=== PATIENT | female | born 1970 | race Caucasian/White ===

== ENCOUNTER 2016-05-31 13:44 | Emergency (ER) | payer MEDICAID ==
[~2016-05-31] VITALS: Ht 167.6 cm; Wt 162.4 kg
[2016-05-31 13:47] VITALS: BP 139/77; PULSE 97; RESP 20; TEMP 97.8; O2SAT 97
--- NOTE | 2016-05-31 13:52 | NUR ---
No ER beds available at this time. EKG performed in triage. Dr. Malloy made aware of pt.'s presenting complaint. Pt placed to ER waiting room in stable condition.
--- NOTE | 2016-05-31 15:13 | NUR ---
Patient in stable condition, alert and oriented x4, son present. Patient states began feeling short of breath with chest pain around 1130 am while at rest. States used nebulizer 3x. No chest pressure or radiating pain per patient. Denies nausea/vomtiing. Left arm rash present with scabbing, clean dry intact. Patient unsure when rash began. No other complaints/injuries per patient or noted.
--- NOTE | 2016-05-31 15:30 | NUR ---
Dr Malloy at bedside
--- NOTE | 2016-05-31 16:19 | NUR ---
Patient in stable condition, breathing unlabored, no shortness of breath or chest pain per patient
[2016-05-31 16:38] LABS: BLOOD GAS PH 7.536 (7.350-7.450)
[2016-05-31 16:39] LABS: BLOOD GAS BASE EXCESS 3.3 mmol/L (-3.0-3.0); BLOOD GAS COHb% 3.4 % (0.5-1.5); BLOOD GAS HHB 2.1 % (0.0-6.0); BLOOD O2Hb% 94.3 % (94.0-97.0)
[2016-05-31] MEDS ORDERED: OXYCODONE/ACETAMINOPHEN *10*mg/325 mg TABLET PO ONE (16:45)
[2016-05-31] MEDS ORDERED: ALBUTEROL SULFATE 0.083% 2.5 MG/3 ML VIAL.NEB INH ONE (16:45)
--- NOTE | 2016-05-31 17:41 | NUR ---
Patient waiting for ride, stable conditon, no distress noted.
[2016-05-31] MEDS ORDERED: ONDANSETRON 4 MG ODT TAB PO ONE (18:00)
--- NOTE | 2016-05-31 18:05 | NUR ---
Patient states is nauseated. Dr. Malloy notified, will order medication.
--- NOTE | 2016-05-31 18:35 | NUR ---
Patient states that medication helped and no longer feels nauseated. Stable condition.
[2016-05-31 18:40] VITALS: BP 127/78; PULSE 88; RESP 18; TEMP 97.1; O2SAT 98
--- NOTE | 2016-05-31 18:40 | NUR ---
Patient given written and verbal discharge instructions and verbalizes understanding. ER MD discussed with patient the results and treatment provided. Patient in stable condition. ID arm band removed. Rx of augmentin and albuterol given. Patient educated on pain management and to follow up with PMD in 2 days. Opportunity for questions provided and answered.
--- NOTE | 2016-05-31 19:00 | NUR ---
Patient left discharge instructions in ER. Called patient's home phone, patient's mother answered, stated will inform daughter when she returns and they will come pick it up. Will endorse to night charge nurse.
== END 2016-05-31 18:40 | disposition home or self-care (01) ==
LOC: SED 13:44
DX: J40 Bronchitis, not specified as acute or chronic (principal); J45.909 Unspecified asthma, uncomplicated; E11.9 Type 2 diabetes mellitus without complications; I10 Essential (primary) hypertension; I50.9 Heart failure, unspecified; C53.9 Malignant neoplasm of cervix uteri, unspecified; Z88.6 Allergy status to analgesic agent; Z88.5 Allergy status to narcotic agent; Z88.8 Allergy status to other drugs, medicaments and biological substances
CPT/HCPCS: 36600; 71010; 81025; 82803; 82962; 93005; 94640; 99285; Q0162

== ENCOUNTER 2016-08-06 15:08 | Inpatient (IN) | payer MEDICAID ==
[~2016-08-06] VITALS: Ht 167.6 cm; Wt 163.7 kg
[2016-08-06 15:20] VITALS: BP 117/71; PULSE 100; RESP 18; TEMP 98.3; O2SAT 96
--- NOTE | 2016-08-06 15:39 | NUR ---
Patient to ER bed 07 to gown for evaluation. Side rails up.
--- NOTE | 2016-08-06 15:48 | NUR ---
PT PRESENTS TO ED C/O/ BLE SWELLING AND REDNESS SINCE YESTERDAY PER PT REPORT. PRIOR ED VISIT REPORTS PT HAS STATED S/S X 2 YRS IN 2016.NO ACUTE DISTRESS NOTED. LEGS ARE SWOLLEN NO WEEPING NOTED.SKIN IS DRY AND FLAKY W/ POOR HYGIENE.
--- NOTE | 2016-08-06 15:48 | NUR ---
ER at bedside examining patient.
--- NOTE | 2016-08-06 16:15 | NUR ---
US AT BEDSIDE
[2016-08-06] MEDS ORDERED: ENOXAPARIN SODIUM 100 MG/ML SYRINGE SUBCUT ONE (16:45)
[2016-08-06] MEDS ORDERED: ENOXAPARIN SODIUM 60 MG/0.6 ML SYRINGE SUBCUT ONE (16:45)
--- NOTE | 2016-08-06 16:45 | NUR ---
PT (+) BILATERAL DVT
--- NOTE | 2016-08-06 17:00 | NUR ---
PT MEDICATED FOR DVT.PT TOLERATED WELL.
--- NOTE | 2016-08-06 17:35 | NUR ---
PT TOLERATED PAIN MED WELL.
[2016-08-06 17:45] LABS: CALCIUM 8.4 mg/dL (8.4-11.0); CREATININE 0.83 mg/dL (0.55-1.30); POTASSIUM 4.4 mmol/L (3.5-5.1)
[2016-08-06] MEDS ORDERED: MORPHINE SULFATE 10 MG/ML VIAL IM ONE (17:45)
[2016-08-06] MEDS ORDERED: ONDANSETRON HCL 4 MG/2 ML VIAL IVP ONE (17:45)
[2016-08-06 17:50] LABS: ALBUMIN 2.5 g/dL (3.4-4.8); TOTAL BILIRUBIN 0.3 mg/dL (0.0-1.0); TOTAL PROTEIN, SERUM 6.4 g/dL (6.4-8.3)
--- NOTE | 2016-08-06 17:50 | NUR ---
Patient will be admitted to care of . Admitted to TELEMETRY unit. Will go to room 117A. Summary report printed. Report will be given at bedside.
[2016-08-06 17:56] LABS: BASOPHILS % (AUTO) 0.4 % (0.0-2.0); EOSINOPHILS # (AUTO) 0.2 K/uL (0.0-0.4); EOSINOPHILS % (AUTO) 3.5 % (0.0-4.0); HEMATOCRIT 27.7 % (36-48); HEMOGLOBIN 8.6 g/dL (12.0-16.0); LYMPHOCYTES # (AUTO) 1.5 K/uL (1.0-5.5); LYMPHOCYTES % (AUTO) 26.5 % (20.5-51.5); MEAN CORPUSCULAR HEMOGLOBIN 22 pg (27-31); MEAN CORPUSCULAR HGB CONC 31 % (32-36); MEAN CORPUSCULAR VOLUME 71 fL (79.0-98.0); MONOCYTES # (AUTO) 0.3 K/uL (0.0-1.0); MONOCYTES % (AUTO) 4.9 % (1.7-9.3); NEUTROPHILS # (AUTO) 3.7 K/uL (1.8-7.7); NEUTROPHILS % (AUTO) 64.7 % (40.0-70.0); PLATELET COUNT (AUTO) 309 K/uL (130-430); RED BLOOD CELL COUNT(AUTO) 3.88 MIL/uL (4.2-6.2); RED CELL DISTRIBUTION WIDTH 18.6 % (9.0-15.0); WHITE BLOOD COUNT (AUTO) 5.7 K/uL (4.8-10.8)
--- NOTE | 2016-08-06 17:58 | NUR ---
admission notes: received patient in room 117A from er via gurney.report given by remigio er nurse. patient admitted with diagnoses of bilateral lower extremity dvt. pt oriented to hospital routine,call light,toileting and safety.Pt verbalized understanding.placed on night monitor. report given to jose rafael primary nurse.
[2016-08-06 18:04] LABS: INR 0.9 (0.8-1.2); PROTHROMBIN TIME 10.3 SECS (9.5-12.5)
[2016-08-06 18:11] VITALS: BP 109/61; PULSE 87; RESP 20; TEMP 98.6; O2SAT 97
--- NOTE | 2016-08-06 18:51 | NUR ---
Closing Note: Pt sitting semi-fowlers in bed. No acute signs of distress noted at this time. IV intact to LUE with no redness or swelling noted to site. No other needs noted at this time. Swelling and redness to BLE noted. Pt verbalizes understanding of need to call for assist prior to ambulating. Call light in reach. Bed alarm on. Pt is able to make needs known. Endorse plan of care to NOC RN.
--- NOTE | 2016-08-06 19:06 | NUR ---
Dr. Samayoa Paged: Dr. Samayoa paged, he is aware that patient does not have pain medication, blood sugar checks, or DVT prophylaxis ordered. He is aware that patient is diabetic and that patient does not know her home medications at this time. Dr. Samayoa states "Ok, I will put the orders in".
[2016-08-06] MEDS ORDERED: *LOVENOX 1MG/KG Q12H/PHARMACY XX ONE (19:15)
[2016-08-06] MEDS ORDERED: COMMUNICATION ORDER XX ONE (19:15)
[2016-08-06] MEDS ORDERED: DEXTROSE 50% JECT 50 ML DISP.SYRIN IVP PRN (19:15)
[2016-08-06] MEDS ORDERED: ACETAMINOPHEN 325 MG TABLET PO PRN (19:15)
--- NOTE | 2016-08-06 19:15 | NUR ---
OPENING NOTES: change of shift, pt. was just admitted. awake, alert and oriented. noted both lower extremities swollen and red , pt. said it feels numb. saline lock on left antecubital. on room air. call light within reach.
[2016-08-06 19:22] VITALS: BP 130/55; PULSE 90; RESP 20; TEMP 98.3; O2SAT 100
[2016-08-06 19:29] LABS: BLOOD GAS BASE EXCESS 8.6 mmol/L (-3.0-3.0); BLOOD GAS PH 7.454 (7.350-7.450)
[2016-08-06 19:30] LABS: ABG TOTAL HEMOGLOBIN 9.8 G/dL (12.0-18.0); BLOOD GAS HHB 7.1 % (0.0-6.0); BLOOD O2Hb% 88.3 % (94.0-97.0)
[2016-08-06 19:48] LABS: IRON (SERUM) 31 mcg/dL (37-145); TOTAL IRON BIND. CAPACITY 222 ug/dL (250-450)
[2016-08-06] MEDS ORDERED: LIRA0.6P SQ (20:01)
[2016-08-06] MEDS ORDERED: INSU200I4 SQ (20:01)
[2016-08-06] MEDS: INSULIN REGULAR, HUMAN 100 UNITS/ML, 10 ML VIAL (novoLIN R) SUBCUT PRN (20:11)
[2016-08-06] MEDS: HYDROmorphone 2 MG/ML VIAL IVP PRN (21:08)
--- NOTE | 2016-08-06 21:14 | NUR ---
NOTES: pt. came in with dressing on lower back and just had back surgery about 2 weeks ago. c/o bilateral lower extremities pain describe as burning and tingling. dressing changed by nurse Oswaldo and took picture.pt. repositioned self on her side.
--- NOTE | 2016-08-06 22:04 | NUR ---
Consultation Paged Reason for consultation: DVT Was consult called: Yes Person who was notified: Blanquita Consulting Physician: Jamel Nava Drug Room Clerk Specialty: Hematology Drug Room Clerk Ordered By: Sharlene Roche
--- NOTE | 2016-08-06 22:14 | NUR ---
PAGED DR CARR SPOKE WITH , PHONE NUMBER [phone]
--- NOTE | 2016-08-06 22:18 | NUR ---
NOTES: called Dr. Reed and retun the call and informed him about the ABG result. pt. in no acute distress, no complain of breathing problem. no new order noted.
[2016-08-07 00:10] VITALS: BP 100/52; PULSE 93; RESP 18; TEMP 97.8; O2SAT 98
[2016-08-07] MEDS: INSULIN REGULAR, HUMAN 100 UNITS/ML, 10 ML VIAL (novoLIN R) SUBCUT PRN ×5 (00:26→23:51)
[2016-08-07] MEDS ORDERED: MORP100C17 PO (00:34)
[2016-08-07] MEDS ORDERED: SUCR1TAB78 PO (00:34)
[2016-08-07] MEDS ORDERED: VITA-285 PO (00:34)
[2016-08-07] MEDS ORDERED: ASCO-339 PO (00:34)
[2016-08-07] MEDS ORDERED: ALBMDI INH (00:34)
[2016-08-07] MEDS ORDERED: TOPI50TA20 PO (00:34)
[2016-08-07] MEDS ORDERED: FURO80TA3 PO (00:34)
[2016-08-07] MEDS ORDERED: HYDR4TAB57 PO (00:34)
[2016-08-07] MEDS ORDERED: FERR-57 PO (00:34)
[2016-08-07] MEDS ORDERED: TRAZ300T2 PO (00:34)
[2016-08-07] MEDS ORDERED: CALC-1094 PO (00:34)
[2016-08-07] MEDS ORDERED: GABA-333 PO (00:34)
[2016-08-07] MEDS ORDERED: AMIT100T2 PO (00:34)
[2016-08-07] MEDS ORDERED: QUET50TA14 PO (00:34)
[2016-08-07] MEDS ORDERED: FLUT12AE3 IH (00:34)
[2016-08-07] MEDS ORDERED: FOLI-59 PO (00:34)
[2016-08-07] MEDS ORDERED: DULO60CA41 PO (00:34)
[2016-08-07] MEDS ORDERED: LORA1TAB PO (00:34)
[2016-08-07] MEDS: HYDROmorphone 2 MG/ML VIAL IVP PRN ×6 (01:38→22:06)
--- NOTE | 2016-08-07 02:10 | NUR ---
NOTES: pt. tried to get out of bed, bed alarm, checked pt. , could not find call light, needs to go potty, helped to get to bedside commode. needs attended. back dressing saturated, leaking , reinforced with ABD pads.
--- NOTE | 2016-08-07 04:30 | NUR ---
NOTES: made rounds, pt. sleeping soundly. cardiac pattern unchanged.
--- NOTE | 2016-08-07 06:00 | NUR ---
CLOSING NOTES: pt. medicated for c/o bilateral leg pain , pt. crying. VS checked and blood sugar and sliding scale coverage given. changed dressing on lower back incision, still leaking with small spot of opening noted. appears red on the site.
[2016-08-07 06:05] VITALS: BP 126/70; PULSE 88; RESP 18; TEMP 99.2; O2SAT 97
--- NOTE | 2016-08-07 06:15 | NUR ---
NOTES: noted skin on left buttock red and some tenderness, picture taken, will order wound consult, cleansed area and covered with foam dressing. pt. feeling little better. repositioned self for comfort.call light within reach.
[2016-08-07] MEDS: ALBUTEROL SULFATE 0.083% 2.5 MG/3 ML VIAL.NEB INH SCH ×5 (07:00→22:48)
[2016-08-07] MEDS ORDERED: IPRATROPIUM BROM 0.5 MG/2.5 ML VIAL.NEB (ATROVENT) INH PRN (07:00)
[2016-08-07] MEDS ORDERED: ALBUTEROL SULFATE 0.083% 2.5 MG/3 ML VIAL.NEB INH PRN (07:00)
[2016-08-07] MEDS: IPRATROPIUM BROM 0.5 MG/2.5 ML VIAL.NEB (ATROVENT) INH SCH ×5 (07:00→22:48)
--- NOTE | 2016-08-07 07:35 | NUR ---
NOTES: endorsed pt. to incoming shift with nurse Amador. noted relief of pain.
--- NOTE | 2016-08-07 08:00 | NUR ---
Initial Notes Patient A/O x4. Respirations even and unlabored on room air. IV access patent. Bilateral lower extremities warm to touch, red. Use of call light reviewed with patient. Fall and safety precautions in place. Bed lowest and locked position.
[2016-08-07] MEDS: ENOXAPARIN SODIUM 60 MG/0.6 ML SYRINGE SUBCUT SCH ×2 (08:40→21:31)
[2016-08-07] MEDS: ENOXAPARIN SODIUM 100 MG/ML SYRINGE SUBCUT SCH ×2 (08:41→21:30)
[2016-08-07] MEDS: ONDANSETRON HCL 4 MG/2 ML VIAL IVP PRN ×2 (09:57→22:03)
[2016-08-07] MEDS ORDERED: FUROSEMIDE 20 MG/2 ML VIAL IVP ONE (10:15)
--- NOTE | 2016-08-07 10:25 | NUR ---
consultation called reason for consult: CHF person who was notified: SANTHOSH consulting drMagaly: LATISHA BROWN
--- NOTE | 2016-08-07 11:00 | NUR ---
Notes Patient ambulated to restroom unassisted. Gait steady. Educated patient on importance to minimize activity due to DVT. Patient provided teach-back and stated she is aware of need to minimize ambulation.
[2016-08-07 11:49] VITALS: BP 126/70; PULSE 88
[2016-08-07 12:46] VITALS: BP 128/49; PULSE 87; RESP 18; TEMP 98.3; O2SAT 98
[2016-08-07 16:18] VITALS: BP 124/55; PULSE 89; RESP 16; TEMP 97; O2SAT 94
--- NOTE | 2016-08-07 16:30 | NUR ---
Notes Informed Dr. Roach of elevated D-dimer. No new orders given.
--- NOTE | 2016-08-07 16:56 | NUR ---
Notes Family at bedside. No acute distress noted.
--- NOTE | 2016-08-07 17:50 | NUR ---
Notes Dressing to lower back changed using aseptic technique. Small to moderate drainage noted to gauze. No foul odor noted.
--- NOTE | 2016-08-07 18:49 | NUR ---
Closing Notes Patient needs met throughout shift. Pain addressed per MD orders. Patient minimized activity. No complaints of difficulty breathing or shortness of breath exhibited. Will continue to monitor until patient care is endorsed to oncoming shift nurse.
--- NOTE | 2016-08-07 19:15 | NUR ---
change of shift.pt.initial assessment.pt.present stable status.pt.presents dsg:lower back.lower extremity cellulitis:bilateral. pt.states she assumes the rt.leg is becoming more edematous.2 f/u.iv fluids access:located lt.antecubital.call ligth placed w/in pt's rech.pt.amblatory:bsc provided 2 accomadate frequent use 4 mictrition.
[2016-08-07 20:00] VITALS: BP 124/64; PULSE 88; RESP 16; TEMP 97.3; O2SAT 96
--- NOTE | 2016-08-07 20:00 | NUR ---
pt.assessed.v/s assessed.values w/ normal limits.pt.request dsg 2 b changed:located lower back.i have changed the dsg. surrgical site presents non healing wound excoriated skin.2 f/u w/.
--- NOTE | 2016-08-07 21:00 | NUR ---
2100p medications administered.lovenox;160mg sq.i have inquired if the pt.understood the necessity 4 the lovenox:pt.stated she did.understanding satisfactory.
--- NOTE | 2016-08-07 22:51 | NUR ---
paged paged for Dr Samayoa, dialed . s/w Tamela.
[2016-08-08] VITALS (7 sets, daily range): BP systolic 94–131; BP diastolic 45–71; PULSE 83–105; RESP 16–18; TEMP 97–98.6; O2SAT 91–100; Ht 167.6 cm; Wt 163.7 kg
--- NOTE | 2016-08-08 | NUR ---
pt.assessed.v/s assessed.values w/in normal limits.i have emptied the bsc.pt.requested cup of coffee.i have provided the coffee.blood glucose assessed.286mg/dl:i have administered 6-units regular insulin.call light w/in pt's reach.
--- NOTE | 2016-08-08 02:00 | NUR ---
pt.assessed.pt.requested pain medication.i have administered dilaudid:2mg ivp.no other request@this hour. call light w/in pt's reach.
[2016-08-08] MEDS: HYDROmorphone 2 MG/ML VIAL IVP PRN ×4 (02:05→20:11)
[2016-08-08] MEDS: IPRATROPIUM BROM 0.5 MG/2.5 ML VIAL.NEB (ATROVENT) INH SCH ×5 (03:05→19:40)
[2016-08-08] MEDS: ALBUTEROL SULFATE 0.083% 2.5 MG/3 ML VIAL.NEB INH SCH ×5 (03:05→19:40)
--- NOTE | 2016-08-08 04:00 | NUR ---
pt.assessed.v/s assessed.i have emptied the bsc.no request@this hour.call light w/in pt's reach.
--- NOTE | 2016-08-08 05:30 | NUR ---
pt.requested medication 4 nausea.i have administered zofran:4mg ivp.no other request@this hour.i have emptied the bsc. call light placed w/i pt's reach.
[2016-08-08] MEDS: ONDANSETRON HCL 4 MG/2 ML VIAL IVP PRN ×2 (05:37→20:11)
--- NOTE | 2016-08-08 06:30 | NUR ---
pt.assessed.pt.requesterd pain medication:i have administered dilaudid:2mg ivp.i have applied new allergy band,i have changed the dsg:coccyx/sacrum,lt.buttocks,i have administerd insulin:2units;regular:blood glucose:150mg /dl.call light placed w/in pt's reach.
[2016-08-08] MEDS: INSULIN REGULAR, HUMAN 100 UNITS/ML, 10 ML VIAL (novoLIN R) SUBCUT PRN ×2 (06:51→11:53)
[2016-08-08 07:04] LABS: BASOPHILS % (AUTO) 0.6 % (0.0-2.0); EOSINOPHILS # (AUTO) 0.1 K/uL (0.0-0.4); EOSINOPHILS % (AUTO) 2.5 % (0.0-4.0); HEMATOCRIT 30.1 % (36-48); HEMOGLOBIN 9.6 g/dL (12.0-16.0); LYMPHOCYTES # (AUTO) 1.7 K/uL (1.0-5.5); LYMPHOCYTES % (AUTO) 29.1 % (20.5-51.5); MEAN CORPUSCULAR HEMOGLOBIN 23 pg (27-31); MEAN CORPUSCULAR HGB CONC 32 % (32-36); MEAN CORPUSCULAR VOLUME 72 fL (79.0-98.0); MONOCYTES # (AUTO) 0.2 K/uL (0.0-1.0); MONOCYTES % (AUTO) 4.3 % (1.7-9.3); NEUTROPHILS # (AUTO) 3.7 K/uL (1.8-7.7); NEUTROPHILS % (AUTO) 63.5 % (40.0-70.0); PLATELET COUNT (AUTO) 306 K/uL (130-430); RED CELL DISTRIBUTION WIDTH 18.7 % (9.0-15.0); WHITE BLOOD COUNT (AUTO) 5.7 K/uL (4.8-10.8)
[2016-08-08 07:10] LABS: CALCIUM 8.9 mg/dL (8.4-11.0); CREATININE 0.69 mg/dL (0.55-1.30); TOTAL BILIRUBIN 0.2 mg/dL (0.0-1.0); TOTAL PROTEIN, SERUM 6.9 g/dL (6.4-8.3)
[2016-08-08 07:11] LABS: ALBUMIN 2.8 g/dL (3.4-4.8); THYROID STIMULATING HORMONE 7.57 uIu/mL (0.34-4.82)
--- NOTE | 2016-08-08 08:03 | NUR ---
Initial Notes Patient A/O x4. Respirations even and unlabored on room air. IV access patent. Bilateral lower extremities warm to touch, red. Use of call light reviewed with patient. Patient able to sit up at side of bed with minimal assistance. Fall and safety precautions in place. Bed lowest and locked position.
[2016-08-08] MEDS ORDERED: POTASSIUM CHLORIDE 20 MEQ/PKT PACKET PO ONE (08:45)
--- NOTE | 2016-08-08 09:09 | NUR ---
Nutrition Update Patricio Scale 18 noted. Pt admitted for DVT. Diet: 2 gm Na BMI: 57.8 kg/m2 RD to follow per nutrition care standards
[2016-08-08] MEDS: ENOXAPARIN SODIUM 60 MG/0.6 ML SYRINGE SUBCUT SCH ×2 (09:42→20:12)
[2016-08-08] MEDS: ENOXAPARIN SODIUM 100 MG/ML SYRINGE SUBCUT SCH ×2 (09:42→20:11)
[2016-08-08] MEDS ORDERED: HYDROmorphone 1 MG INJ. 1 MG/ML AMPUL IVP PRN ×2 (10:00)
[2016-08-08] MEDS ORDERED: ACETAMINOPHEN 325 MG TABLET PO PRN (10:00)
[2016-08-08] MEDS: HYDROmorphone 1 MG INJ. 1 MG/ML AMPUL IVP PRN ×2 (10:03→15:57)
--- NOTE | 2016-08-08 10:30 | NUR ---
WOUND EVALUATION: Late note for 1030 secondary to patient care. Wound Consult received from Dr. Samayoa. Thank you, Dr. Samayoa, for the consult. Patient received in a Rafal Bed with an Atmos-Air 9000 mattress, awake, alert, and oriented. Patient is able to turn in bed independently. Patricio Score is an 18. Past Medical History: Asthma, Diabetes Mellitus, CHF, history of Pericarditis, back surgery, and six Angiograms. Recent Labs: WBC 5.7, RBC 4.20, Hgb 9.6, Hct 30.1, K 3.0, BUN 7, Creat 0.69, Gluc 172, Alb 2.8, D-Dimer 3060. Intrinsic factors that delay wound healing: Asthma, Diabetes Mellitus, CHF. Extrinsic factors that delay wound healing: Decreased mobility. Microbiology: MRSA Screen negative. Blood Culture x 2 in progress. Upon arrival to [facility], the patient was found to have bilateral lower extremity DVT's. Patient received Dilaudid IV push pain medication around two hours before assessment. Wound Assessment: 1) Lower Thoracic Area: Recent surgical site with scar tissue with a small hole, present on admission. Hole measures 0.4 cm x 0.4 cm x 4.0 cm. 100% undermining present, with tunnel at 7 0'clock, measuring 1.7 cm. No visible colors of tissue within hole. Small yellow purulent drainage present. Sacral area has bands of redness. May be connecting to wound 2) below. Recommend: Cleanse wound with normal saline. Place moisture barrier cream onto evan-wound. Pack wound with 1/4 inch Iodoform. Cover with non-adhesive foam dressing, then transparent dressing. Perform wound care daily, and as needed for dressing soiling or dislodgement. 2) Left Buttock: A small reddened, round area, blanchable. No odor, no drainage, possible abscess site. Skin is broken, but not open. Measures 1.0 cm x 0.6 cm. Recommend: Cleanse site with normal saline. Pat dry. Place moisture barrier cream onto site. Cover with foam dressing. Perform wound care daily, and as needed for dressing soiling or dislodgement. Also recommend: Encourage and assist patient as needed with repositioning every 2 hours with pillow support and off-load pressure areas with pillows for pressure re-distribution. Perform skin care and monitor skin integrity Q shift. Use moisture barrier cream on buttocks and other moisture susceptible areas QID and as needed for soiling. Addendum: 08/08/16 at 2036 by Jozef Zarate RN Error, patient assessed at 0930.
--- NOTE | 2016-08-08 10:30 | NUR ---
Wound Care Planning: Spoke with Dr. Samayoa in house and explained to him that patient has a lot of pain, and recommended pain medication for wound care. Danita Clinton entered pain medication for mild, moderate, and severe pain. Also recommended a surgical consult for the wound.
--- NOTE | 2016-08-08 10:55 | NUR ---
Notes Patient calm at this time. Pain medication has relieved discomfort from lower back after wound evaluation.
--- NOTE | 2016-08-08 14:45 | NUR ---
Notes Complaint of pain addressed per MD orders.
--- NOTE | 2016-08-08 15:30 | NUR ---
Notes Wound care completed per wound care guidelines. Patient tolerated well, but is complaining of discomfort. Pain will be addressed per MD orders. Wound occasional caregiver was informed and he spoke with patient to reinforce education in regards to importance of proper wound care in order to promote healing.
--- NOTE | 2016-08-08 15:35 | NUR ---
Wound Treatment Orders: Spoke with patient regarding pain. She was crying non-stop, and said that I could talk to her, but that she wanted the packing out. She said that the wound packing was "burning" inside. Explained to patient that packing the wound would decrease wound fluid buildup and help the wound to heal (and that no packing would consequently allow more fluid to collect within the wound and increase wound cavity size). The patient demanded to have the wound packing taken out. If patient does not allow packing of the wound: Apply moisture barrier cream to evan-wound, apply calcium alginate, then foam dressing to wound site daily, and as needed for dressing soiling or dislodgment.
--- NOTE | 2016-08-08 17:05 | NUR ---
Notes Patient crying leaning over bedside table, squeezing pillow, playing candy crush game on her phone. Pain has been addressed. Patient refuses heat pad for comfort. Does not state what relieves discomfort when asked. Dr. Samayoa has been paged to inform and obtain orders.
[2016-08-08] MEDS: LORazepam 1 MG TABLET PO PRN (18:02)
--- NOTE | 2016-08-08 18:27 | NUR ---
CONSULTATION PAGED REASON FOR CONSULTATION:UNCOLSABLE CRYINY WAS CONSULT CALLED?Y PERSON WHO WAS NOTIFIED:BLADE CONSULTING PHYSICIAN:DR.JACOBSAID ASSEMBLING MACHINE OPERATOR SPECIALTY:PSYCH ASSEMBLING MACHINE OPERATOR PHONE NUMBER:[phone]
--- NOTE | 2016-08-08 19:02 | NUR ---
Closing Notes Patient needs met throughout shift. Pain addressed per MD orders. Patient minimized activity. No complaints of difficulty breathing or shortness of breath exhibited. Patient less restless at this time but stated she will not eat. Will continue to monitor until patient care is endorsed to oncoming shift nurse.
--- NOTE | 2016-08-08 20:05 | NUR ---
Initial Notes Patient alert and oriented, able to make needs known. Patient c/o pain to coccyx area, stated pain coming from wound that was measured and dressed today by nurse and wound care nurse, will medicate with IV pain medicine. Patient instructed to position self on either sides while laying down, to offload on back area. Patient verbalized understanding. No SOB noted, on room air. Denies nausea/vomiting at this time. IV site patent, flushes well. Goal of pain management and safety this shift. Call light within reach. Will continue to monitor.
--- NOTE | 2016-08-08 22:16 | NUR ---
Notes Patient resting in bed, playing on her phone. States pain level has gone down. No SOB noted. IV site patent, flushes well. Dressing to lower back area, CDI. Son at bedside. Call light within reach. Will continue to monitor.
[2016-08-09] MEDS: LORazepam 1 MG TABLET PO PRN (00:11)
[2016-08-09] MEDS: HYDROmorphone 2 MG/ML VIAL IVP PRN ×6 (00:11→21:06)
[2016-08-09] MEDS: ALBUTEROL SULFATE 0.083% 2.5 MG/3 ML VIAL.NEB INH SCH ×7 (00:17→23:45)
[2016-08-09] MEDS: IPRATROPIUM BROM 0.5 MG/2.5 ML VIAL.NEB (ATROVENT) INH SCH ×7 (00:17→23:45)
--- NOTE | 2016-08-09 00:30 | NUR ---
Notes Checked patients blood sugar, covered with insulin per sliding scale. Reinforced dressing to lower back area. Medicated with pain medicine, per pt request. No SOB noted. Afebrile. IV site patent, flushes well. Call light within reach. Will continue to monitor.
[2016-08-09] MEDS: INSULIN REGULAR, HUMAN 100 UNITS/ML, 10 ML VIAL (novoLIN R) SUBCUT PRN ×4 (00:42→17:25)
--- NOTE | 2016-08-09 02:20 | NUR ---
Notes Patient denies pain at this time. No SOB noted. IV site patent, flushes well. Afebrile. Call light within reach. Will continue to monitor.
--- NOTE | 2016-08-09 04:18 | NUR ---
Notes Patient recently medicated with pain medicine. No SOB noted. Dressing to back area CDI. Afebrile. IV site patent, flushes well. Call light within reach. Will continue to monitor.
--- NOTE | 2016-08-09 04:37 | NUR ---
CONSULT: DIETARY CONSULT I CALLED LEFT A [email or web address] ANSWERING MACHINE EXT. [phone]
[2016-08-09 05:26] VITALS: BP 106/50; PULSE 92; RESP 18; TEMP 97.2; O2SAT 97
--- NOTE | 2016-08-09 06:42 | NUR ---
Closing Notes Cleanse wound with normal saline. Place moisture barrier cream onto evan-wound. Pack wound with 1/4 inch Iodoform. Cover with non-adhesive foam dressing, then transparent dressing. Patient tolerated dressing change well, c/o pain, but tolerable. No SOB noted. IV site patent, flushes well. Patient repositioned in bed. Goals met. Call light within reach. Will continue to monitor.
[2016-08-09 07:46] VITALS: BP_SYST 116; BP_SYST 118; BP_DIAS 45; BP_DIAS 62; PULSE 86; RESP 15; TEMP 97.6; O2SAT 96
--- NOTE | 2016-08-09 08:16 | NUR ---
initial notes: pt awake, alert and oriented. i.v. access patent. discussed plan of care. call light within reach. report received at bedside.
--- NOTE | 2016-08-09 08:29 | NUR ---
Royce rounds: seen by Dr. Gilbert.
[2016-08-09] MEDS: ENOXAPARIN SODIUM 60 MG/0.6 ML SYRINGE SUBCUT SCH ×2 (08:36→21:07)
[2016-08-09] MEDS: ENOXAPARIN SODIUM 100 MG/ML SYRINGE SUBCUT SCH ×2 (08:37→21:07)
--- NOTE | 2016-08-09 09:55 | NUR ---
CONSULTATION CALLED REASON FOR CONSULT: DEBRIDEMENT PERSON WAS CALLED: ROMULO CONSULTING : CECY DORADO
--- NOTE | 2016-08-09 10:05 | NUR ---
CONSULTATION CALLED REASON FOR CONSULT: DRAINAGE PERSON WAS CALLED: RAYMUNDO CONSULTING : CEDRIC AMADO
--- NOTE | 2016-08-09 10:34 | NUR ---
rounds: pt resting on bed. with son at bedside. no distress noted.
[2016-08-09 12:04] VITALS: BP 118/73; PULSE 96; RESP 15; TEMP 98.1; O2SAT 98
[2016-08-09] MEDS: VANCOMYCIN HCL 1,500 MG in NS 250 ML IV SCH (13:16)
--- NOTE | 2016-08-09 14:17 | NUR ---
P.T. seen by P.T. placed back to bed and resting. no distress noted.
--- NOTE | 2016-08-09 14:30 | NUR ---
PHYSICAL THERAPY CO-SIGN The Physical Therapy Progress Notes documented by Tug Hand have been reviewed. Reviewed/Co-Signed by: Saira Adams,PT Documentation Done by: Elliot Gomez PTA I concur with the documentation of this NICU RN. Plan: continue PT as per plan of care. Addendum: 08/09/16 at 1444 by Saira Adams PT Amended: Links added.
--- NOTE | 2016-08-09 15:14 | NUR ---
rounds: pt on bed resting. no distress noted.
--- NOTE | 2016-08-09 15:29 | NUR ---
Social Service Note: FACILITIES CLERK received call from charge nurse that states that pt was requesting to speak to a social work faculty member; FACILITIES CLERK met with pt at bedside; pt's son was present. Pt states that she has no current concerns/needs. FACILITIES CLERK will remain available for support and will follow up with pt as needed.
--- NOTE | 2016-08-09 16:27 | NUR ---
DC planning: S/W Dr. Samayoa-pt is out of network per Daysi at [facility]--per Dr. Samayoa, pt needs transfer for higher level of care -needs ortho or neurosurgeon workup for draining ulcer on her back--faxed order to Daysi at [facility] at [phone] says he will initiate transfer tomorrow am--Nurse Deana will inform pt of need for transfer for higher level of care--xray cd requested from radiology--CHAITANYA RED
[2016-08-09 16:39] VITALS: BP_SYST 115; BP_SYST 119; BP_DIAS 49; BP_DIAS 55; PULSE 99; RESP 17; TEMP 98.1; O2SAT 98
[2016-08-09] MEDS: ONDANSETRON HCL 4 MG/2 ML VIAL IVP PRN (17:38)
[2016-08-09 19:54] VITALS: BP 98/58; PULSE 94; RESP 17; TEMP 97.8; O2SAT 100
--- NOTE | 2016-08-09 19:54 | NUR ---
closing notes: pt informed she will be transfer for high level of care tomorrow. needs attended. call light within reach. report given to NEDA Broussard.
--- NOTE | 2016-08-09 19:55 | NUR ---
OPENING NOTES PATIENT IS A/OX4. NO SIGNS OF DISTRESS. BREATHING IS NON LABORED. IV IS PATENT AND SHOWS NO SIGNS OF COMPLICATIONS. VITALS SIGNS ARE STABLE. PATIENT INSTRUCTED TO CALL FOR ASSISTANCE. PATIENT HAD COMPLAINTS OF PAIN. INFORMED PATIENT THAT PAIN MEDICATION IS NOT DUE YET AND WILL GIVE PAIN MEDICATION WHEN TIME ALLOWS. SAFETY MEASURES ARE IN PLACE. WILL CONTINUE TO MONITOR.
--- NOTE | 2016-08-09 21:07 | NUR ---
PAIN PATIENT HAD COMPLAINTS OF PAIN VS=137/78. HR=86, RR= 17. WILL GIVE PRN PAIN MEDICATION.
--- NOTE | 2016-08-09 23:50 | NUR ---
ROUNDS PATIENT IS IN BED RESTING AND WATCHING TV. NO SIGNS OF DISTRESS. BREATHING IS NON LABORED. WILL CONTINUE TO MONITOR.
[2016-08-10] VITALS (7 sets, daily range): BP systolic 116–144; BP diastolic 52–74; PULSE 75–92; RESP 17–20; TEMP 97–98.4; O2SAT 96–100
[2016-08-10] MEDS: VANCOMYCIN HCL 1,500 MG in NS 250 ML IV SCH ×2 (00:51→12:51)
[2016-08-10] MEDS: INSULIN REGULAR, HUMAN 100 UNITS/ML, 10 ML VIAL (novoLIN R) SUBCUT PRN ×3 (00:56→23:34)
--- NOTE | 2016-08-10 01:10 | NUR ---
ROUNDS PATIENT WAS GIVEN JUICE AND A WARM BLANKET.
[2016-08-10] MEDS: HYDROmorphone 2 MG/ML VIAL IVP PRN ×6 (01:18→21:18)
[2016-08-10] MEDS: ONDANSETRON HCL 4 MG/2 ML VIAL IVP PRN ×4 (01:54→22:51)
--- NOTE | 2016-08-10 03:06 | NUR ---
ROUNDS PATIENT IS IN BED SLEEPING. NO SIGNS OF DISTRESS. BREATHING IS NON LABORED. CALL LIGHT IS WITHIN REACH. SAFETY MEASURES ARE IN PLACE. WILL CONTINUE TO MONITOR.
[2016-08-10] MEDS: IPRATROPIUM BROM 0.5 MG/2.5 ML VIAL.NEB (ATROVENT) INH SCH ×5 (03:30→20:00)
[2016-08-10] MEDS: ALBUTEROL SULFATE 0.083% 2.5 MG/3 ML VIAL.NEB INH SCH ×5 (03:30→19:59)
--- NOTE | 2016-08-10 05:10 | NUR ---
ROUNDS PATIENT IS IN BED SLEEPING. NO SIGNS OF DISTRESS. BREATHING IS NON LABORED. SAFETY MEASURES ARE IN PLACE. WILL CONTINUE TO MONITOR.
--- NOTE | 2016-08-10 06:34 | NUR ---
CLOSING NOTES PATIENT IS IN BED SLEEPING. NO SIGNS OF DISTRESS. BREATHING IS NON LABORED. IV IS PATENT AND SHOWS NO SIGNS OF COMPLICATIONS. SAFETY MEASURES ARE IN PLACE. WILL ENDORSE ALL CARE TO THE MORNING NURSE.
--- NOTE | 2016-08-10 08:00 | NUR ---
NOTE PT RESTING IN BED. PT'S SON SLEEPING IN RECLINER AT BEDSIDE. PT'S LEFT UPPER ARM IV INTACT AND PATENT AT THIS TIME, INFUSING IVF'S WELL. NO SOB/RESP DISTRESS NOTED. PT C/O OF PAIN IN BACK, PAIN IVP MEDICATION TO BE GIVEN SHORTLY. CALL LIGHT WITHIN REACH.
[2016-08-10] MEDS: ENOXAPARIN SODIUM 100 MG/ML SYRINGE SUBCUT SCH ×2 (08:30→21:21)
[2016-08-10] MEDS: ENOXAPARIN SODIUM 60 MG/0.6 ML SYRINGE SUBCUT SCH ×2 (08:30→21:22)
--- NOTE | 2016-08-10 10:43 | NUR ---
DC Planning: Rec'd call from Ceic at [facility]--she is caser in working on case now for transfer to in-network hospital for ortho and/or neurosurgeon f/u. Ceci updated on pt's wt, no isolation, telemetry status--Ceci will call us back when she has info on which [facility], , bed#--nurse Karolina updated. CHAITANYA RN Addendum: 08/10/16 at 1628 by Katie Morejon RN >> f/u on transfering to [facility] net work. RAFAEL Lipscomb/Ceci . RAFAEL to ph# [phone] to return call to nursing unit should there is bed available radha. -- SHABBIR RED
--- NOTE | 2016-08-10 11:00 | NUR ---
NOTE PT AMBULATES/MOVES TO BSC INDEPENDENTLY AT THIS TIME. PT EATING EHR BREAKFAST WELL. NO NEEDS NOTED. CALL LIGHT WITHIN REACH.
--- NOTE | 2016-08-10 14:00 | NUR ---
NOTE PT WORKING WITH PHYSICAL THERAPY AND FWW IN ROOM, TOLERATED AMBULATION WELL. PT SITTING ON SIDE OF BED AFTER WORKING WITH PHYSICAL THERAPY. CALL LIGHT WITHIN REACH.
--- NOTE | 2016-08-10 15:20 | NUR ---
NOTE PT'S LOWER LUMBAR DRESSING WAS DONE BY LUIS ENRIQUE SURGICAL LEAD AND PATRICK RN AT THIS TIME. PT TOLERATED DRESSING CHANGE. PT HAD BEEN MEDICATED WITH PAIN AND NAUSEA IVP MEDICATIONS AT THIS TIME WELL. PT RESTING IN BED AT THIS TIME. NO NEEDS NOTED. CALL LIGHT WITHIN REACH.
--- NOTE | 2016-08-10 15:20 | NUR ---
WOUND RE-EVALUATION: Patient received in a [place] Bed with an Atmos-Air 9000 mattress, awake, alert, and oriented. Patient is able to turn in bed independently. Patricio Score is an 16. Intrinsic factors that delay wound healing: Asthma, Diabetes Mellitus, CHF. Extrinsic factors that delay wound healing: Decreased mobility. Microbiology: Blood Culture x 2 in progress. Upon arrival to [facility], the patient was found to have bilateral lower extremity DVT's. Patient received pain medication prior to assessment. Wound care performed with NEDA Leblanc. Wound Assessment: 1) Lower Thoracic Area: Recent surgical site with scar tissue with a small hole, present on admission. Hole measures 0.4 cm x 0.4 cm. 100% undermining present, with tunnel at 7 0'clock. Unable to measure depth secondary to pain. No visible colors of tissue within hole. Small yellow purulent drainage present. Sacral area has bands of redness (decreased brightness of red coloration). May be connecting to wound 2) below. Dry, yellow crusty skin present inferior to wound (secondary to drainage). Recommend continue: Cleanse wound with normal saline. Place moisture barrier cream onto evan-wound. Pack wound with 1/4 inch Iodoform. Cover with non-adhesive foam dressing, then transparent dressing. Perform wound care daily, and as needed for dressing soiling or dislodgement. 2) Left Buttock: A small reddened, round area, blanchable, now pink. No odor, no drainage, possible abscess site. Skin is broken, but not open. Measures 1.0 cm x 0.6 cm. Recommend continue: Cleanse site with normal saline. Pat dry. Place moisture barrier cream onto site. Cover with foam dressing. Perform wound care daily, and as needed for dressing soiling or dislodgement. Also recommend continue: Encourage and assist patient as needed with repositioning every 2 hours with pillow support and off-load pressure areas with pillows for pressure re-distribution. Perform skin care and monitor skin integrity Q shift. Use moisture barrier cream on buttocks and other moisture susceptible areas QID and as needed for soiling.
--- NOTE | 2016-08-10 15:50 | NUR ---
DC planning: Received vm from Ceci at [facility] indicating they haven't been able to reach Dr. Samayoa for MD to --I left message with Dr. Samayoa-he indicates he called Dr. Dixon and there was no answer--I called Ceci back at [phone] at 1550 and 1615--no call back. I called Daysi at [facility] at [phone] and left message that Dr. Samayoa called Dr. Dixon and no answer. I LM for Daysi with Dr. Samayoa's cell# again. CHAITANYA RED Addendum: 08/10/16 at 1704 by Marisela Banuelos RN I called Ceci again at [facility]-she answered and said she doesn't have Dr. Samayoa's correct cell#. I gave her cell # again, which she read back to me, and she will message Dr. Dixon again to call Dr. Samayoa.
--- NOTE | 2016-08-10 16:15 | NUR ---
NOTE CALL FROM SHALOM ([facility]) STATING THAT SHE HAS BEEN TRYING TO GET HOLD OF DR CARR FOR A WHILE AND HAS BEEN UNABLE TO GET A CALL BACK FROM DR VÁSQUEZ. ACCEPTING MD'S TELEPHONE NUMBER GIVEN TO RN TO SEE IF RN COULD CALL DR CARR TO CALL ACCEPTING MD - DR VAL GOMEZ - SO THAT THERE COULD BE MD TO MD REPORT GIVEN. CALLED DR CARR'S OFFICE AND SPOKE TO JAD, AND JAD STATED SHE WOULD CALL DR CARR AND HAVE MD CALL THE ACCEPTING MD OR CALL RN BACK. DR VAL GOMEZ'S NUMBER [phone]. PT IS BEING ACCEPTED IN THIS FACILITY FOR CONTINUATION OF CARE. HIGHER LEVEL OF CARE.
--- NOTE | 2016-08-10 18:15 | NUR ---
NOTE PT RESTING IN BED. PT'S SON AT BEDSIDE. PT WAS GIVEN PAIN IVP MEDICATION. NO SOB/RESP DISTRESS OR PAIN/DISCOMFORT NOTED AT THIS TIME. PT'S LOWER BACK DRESSING CDI AT THIS TIME. IV IN LEFT UPPER ARM INTACT AND INFUSING IVF'S WELL AT THIS TIME. NO NEEDS NOTED AT THIS TIME. PT WAS CHECKED ON Q1' AND PRN FOR NEEDS AND CARE. CALL LIGHT WITHIN REACH.
[2016-08-11] VITALS (7 sets, daily range): BP systolic 104–129; BP diastolic 44–72; PULSE 68–80; RESP 14–18; TEMP 97–98.4; O2SAT 94–100
[2016-08-11] MEDS: VANCOMYCIN HCL 1,500 MG in NS 250 ML IV SCH ×2 (00:36→14:37)
[2016-08-11] MEDS: HYDROmorphone 2 MG/ML VIAL IVP PRN ×3 (01:32→22:40)
[2016-08-11] MEDS: ONDANSETRON HCL 4 MG/2 ML VIAL IVP PRN ×4 (05:49→22:40)
[2016-08-11] MEDS: INSULIN REGULAR, HUMAN 100 UNITS/ML, 10 ML VIAL (novoLIN R) SUBCUT PRN ×3 (06:28→18:49)
[2016-08-11 07:22] LABS: BASOPHILS # (AUTO) 0.1 K/uL (0.0-0.2); BASOPHILS % (AUTO) 1.4 % (0.0-2.0); EOSINOPHILS # (AUTO) 0.2 K/uL (0.0-0.4); EOSINOPHILS % (AUTO) 3.9 % (0.0-4.0); HEMATOCRIT 28.2 % (36-48); LYMPHOCYTES # (AUTO) 1.1 K/uL (1.0-5.5); LYMPHOCYTES % (AUTO) 20.8 % (20.5-51.5); MEAN CORPUSCULAR HEMOGLOBIN 23 pg (27-31); MEAN CORPUSCULAR HGB CONC 32 % (32-36); MEAN CORPUSCULAR VOLUME 71 fL (79.0-98.0); MONOCYTES # (AUTO) 0.2 K/uL (0.0-1.0); MONOCYTES % (AUTO) 4.1 % (1.7-9.3); NEUTROPHILS # (AUTO) 3.6 K/uL (1.8-7.7); NEUTROPHILS % (AUTO) 69.8 % (40.0-70.0); PLATELET COUNT (AUTO) 225 K/uL (130-430); RED BLOOD CELL COUNT(AUTO) 3.95 MIL/uL (4.2-6.2); RED CELL DISTRIBUTION WIDTH 18.5 % (9.0-15.0); WHITE BLOOD COUNT (AUTO) 5.2 K/uL (4.8-10.8)
[2016-08-11 07:35] LABS: CALCIUM 8.5 mg/dL (8.4-11.0); CREATININE 0.62 mg/dL (0.55-1.30); POTASSIUM 4.1 mmol/L (3.5-5.1)
[2016-08-11] MEDS: IPRATROPIUM BROM 0.5 MG/2.5 ML VIAL.NEB (ATROVENT) INH SCH ×4 (07:46→20:27)
[2016-08-11] MEDS: ALBUTEROL SULFATE 0.083% 2.5 MG/3 ML VIAL.NEB INH SCH ×4 (07:46→20:27)
--- NOTE | 2016-08-11 08:00 | NUR ---
initial notes rec patient asleep but aorusable to stimuli.with ivl intact and no infiltration noted. resp easy and unlabored.family in the room with patient. resp easy and unlabored and no sob noted. bed in low position and side rails up and locked. call light within reached and knows when to call for help.will continue to monitor patient.
[2016-08-11] MEDS: ENOXAPARIN SODIUM 100 MG/ML SYRINGE SUBCUT SCH ×2 (09:11→21:07)
[2016-08-11] MEDS: ENOXAPARIN SODIUM 60 MG/0.6 ML SYRINGE SUBCUT SCH ×2 (09:12→21:08)
--- NOTE | 2016-08-11 09:15 | NUR ---
Discharge Planning Called and left a message for Ceci @ [facility], , informing her that Dr Samayoa states that he still has not been contact with [facility] for MD to . I also stated that [facility] care r/t draining wound to patient's back. Requested call back. Addendum: 08/11/16 at 1148 by Hiwot Robertson RN Called and left another message for Ceci @ [facility] requesting a call back to facilitate transfer of this patient to tertiary center. Addendum: 08/11/16 at 1322 by Hiwot Robertson RN Called Miguelito @ [facility] [facility] [phone], requesting update on status of transfer. I informed Miguelito that messages have been left for Ceci today but we have not received call back. Miguelito stated that he would f/u and have Ceci call us back. Addendum: 08/11/16 at 1429 by Hiwot Robertson RN Received call back from Ceci REZA @ [facility] who stated that she is looking for bed availability at [facility]. Once she has a bed she will call back with report #, Bed #, and auth for ambulance. Met with patient at bedside to update her. Patient stated that the surgeon that has performed surgery on her is Dr Valente Love out of [facility]. Patient states that she wants to be transferred to that facility and does not want another MD "touching" her spine. Called Ceci back and left a message updating her with patient's preference.
--- NOTE | 2016-08-11 09:27 | NUR ---
Neuro Consult: for Dr. Leyva, regarding back pain, ordered by Dr. Samayoa, spoke with
--- NOTE | 2016-08-11 10:00 | NUR ---
rounds p.t working on the patient at bedside. uses the commode at intervals and dewey well. seen by dr carey and with orders.
--- NOTE | 2016-08-11 12:00 | NUR ---
rounds pt eating lunch and dewey well. no hypo hyperglycemic reaction noted. son at bedside with patient. no sob noted.
--- NOTE | 2016-08-11 14:00 | NUR ---
rounds watch tv at intervals and requesting pain meds when it is due. no acute distress.
--- NOTE | 2016-08-11 14:30 | NUR ---
PHYSICAL THERAPY CO-SIGN The Physical Therapy Progress Notes documented by Audit Senior Associate have been reviewed. I CONCUR W/GEODETIC COMPUTATOR NOTE; CONT PER TX PLAN Reviewed/Co-Signed by: Jane Carrasco PT Documentation Done by: NIRMALA ABAD GEODETIC COMPUTATOR Addendum: 08/11/16 at 1431 by Jane Carrasco PT Amended: Links added.
[2016-08-11] MEDS: HYDROmorphone 1 MG INJ. 1 MG/ML AMPUL IVP PRN ×3 (14:33→18:40)
--- NOTE | 2016-08-11 15:00 | NUR ---
rounds iv infiltrated amd restared by chauncey charge nurse on the left upper chest peripheral line.no infiltration noted.
--- NOTE | 2016-08-11 15:33 | NUR ---
DISCHARGE PLANNING Received call back from JUAQUIN Ornelas @ [facility]. Patient has been accepted by Dr Shira Lugo @ [facility]. Room #216-B. Nurse to Nurse report # [phone]. Transportation has been set up with [facility] [phone] for a 1830 pepper picker time. Ambulance auth# [id number]. Transfer packet has been updated and placed in nurse's station. María Elena RED updated. Patient updated and agreeable.
--- NOTE | 2016-08-11 15:52 | NUR ---
Nutrition F/U Admitting Diagnosis DVT Reviewed Pertinent Medical/Surgical Hx Patient Medical Record Primary RN Medical History Comment: Asthma, DM, CHF, pericarditis per MD notes Lap band in 2010 per pt report Subjective Information Pt seen resting in bed at time of RD visit. Pt reported that she will be transferring to [facility]. Pt stated that her appetite has not been too good, as she has been feeling nauseous (likely r/t Abx treatment). Pt reported that she has only been able to tolerate saltines and bites of cantaloupe today. RD inquired about food preferences for dinner [facility]; pt stated she would like to try some mashed potatoes and hot tea; RD notified FNS staff. Per MD orders, active order for CT head/brain for L arm weakness. Per EMR, PO Intakes: 75% average x7 meals. I/O: 360/0 (+360 ml) per 12 hours. Current diet is appropriate at this time. Pt is likely meeting lower end of estimated nutritional needs. RD provided nutrition education at previous visit. Current Diet Order/Nutrition Support CCHO, cardiac x1 day Patient/Significant Other Able To Verbalize Education Provided Indicated Pertinent Medications levemir, zofran, SSI Pertinent Labs BG 267 H, POC BG 222 H, HgA1c 9.5 H (08/07/16) Height (Feet) 5 feet Height (Inches) 6.00 inches Weight (Pounds) 361 pounds (admission) Weight (Calculated Kilograms) 163.016062 kilograms Patient Weight 163.747 kg Body Mass Index 58.26 kg/m2 Usual Weight 358 lbs %UBW 101 %IBW 278 [place]/Adjusted Body Weight IBW: 130 lb, 59 kg. Adj IBW (obesity): 188 lb, 85 kg Recent Weight Change No Weight Status Morbidly Obese Last BM Aug 10, 2016 Food Allergies Yes - Coconut, fish, nuts, seafood (noted in both [employer] and [employer]) Usual Diet At Home No added salt, son cooks for pt at home, enjoys hamburgers, hot dogs Skin Integrity Comment: Bradne scale: 15; per nursing notes, L/R calf: redness; posterior back: incision Current % PO Good Estimated Energy Expenditure (kcals/day) 2479-7084 kcal/day (BEE x 1-1.2 CBW for maintenance) Estimated Protein Required (g/day) 47-59 gm/day (0.8-1 gm/kg IBW for maintenance) Estimated Fluid Required (l/day) Per MD (CHF) Problem/Etiology/Signs/Symptoms Malnutrition related to morbid obesity as evidenced by BMI: 23.5 kg/m2 and 113% of IBW. *ongoing Altered nutrition-related labs related to endocrine dysfunction as evidenced by elevated BG and POC BG lab values. *ongoing Expected Outcomes/Goals - Monitor appetite and PO intakes w/ goal of pt meeting at least 75% of estimated nutritional needs, labs trending WNL, normal GI function, and skin integrity/wt maintenance Dietitian Recommendations * Recommend continuing CCHO, cardiac diet Follow Up Mod Risk: F/U in 3-5 days
--- NOTE | 2016-08-11 18:00 | NUR ---
rounds was taken to ct scan via wheelchair for ct of the head. no hypo hyperglycemic reaction noted.
--- NOTE | 2016-08-11 19:00 | NUR ---
closing notes discharged to [facility] wont be happening till 2099. ambulance came but ginny that was brought by paramedics can only carry 300 lbs. dressing changed and picture taken done by shasta smith on her wound on the back and her legs. due meds were given as ordered. no sob noted.
--- NOTE | 2016-08-11 20:00 | NUR ---
Initial note A/O x 3, no SOB, no chest pain, c/o mild pain at back, patient was receiving pain med earlier. Clear lung sounds and active bowel sounds. Skin warm to touch, IV at L upper chest, patent and dry. Wound at back and L buttock noted. Dressing intact. No s/s of hyper-or hypoglycemia. +1 edema at BLE noted, +2 radial and pedal pulses. Call light within reach, bed at lowest position, will continue to monitor patient.
--- NOTE | 2016-08-11 22:00 | NUR ---
Report given to Nurse (Dallin) in [facility] @ [phone]
--- NOTE | 2016-08-11 22:30 | NUR ---
Patient transferred to [facility] A/O x 3, no SOB, no chest pain, c/o pain at back and nauseated, Dilaudid and Zofran given. Skin warm to touch, IV at L upper chest, patent and dry. No s/s of hyper-or hypoglycemia. +1 edema at BLE noted, +2 radial and pedal pulses. Went over discharge instruction with patient and informed patient to ask if she has any questions. Also provided patient wound pictures as patient requested. Patient also sign the transfer paper. Paramedics transferred patient around 0. Patient discharged from [facility] in a good condition.
== END 2016-08-11 23:00 | disposition short-term general hospital (02) | DRG 721 ==
LOC: SED 15:08 → STU 17:13 → SMU 08-11 13:00
PROVIDERS: ADMIT Internal Medicine Hospice and Palliative Medicine; ATTEND Internal Medicine Hospice and Palliative Medicine
DX: T81.4XXA Infection following a procedure, initial encounter (principal); J96.00 Acute respiratory failure, unspecified whether with hypoxia or hypercapnia; I11.0 Hypertensive heart disease with heart failure; I50.9 Heart failure, unspecified; E44.1 Mild protein-calorie malnutrition; E11.9 Type 2 diabetes mellitus without complications; L03.90 Cellulitis, unspecified; I82.443 Acute embolism and thrombosis of tibial vein, bilateral; Z68.43 Body mass index [BMI] 50.0-59.9, adult; F32.9 Major depressive disorder, single episode, unspecified; F41.1 Generalized anxiety disorder; I25.10 Atherosclerotic heart disease of native coronary artery without angina pectoris; D63.8 Anemia in other chronic diseases classified elsewhere; E66.01 Morbid (severe) obesity due to excess calories; G89.4 Chronic pain syndrome; J45.909 Unspecified asthma, uncomplicated; Z79.4 Long term (current) use of insulin; Z83.3 Family history of diabetes mellitus; Z82.49 Family history of ischemic heart disease and other diseases of the circulatory system; Z86.711 Personal history of pulmonary embolism; Z86.718 Personal history of other venous thrombosis and embolism; Z87.891 Personal history of nicotine dependence; Z90.710 Acquired absence of both cervix and uterus; Z90.721 Acquired absence of ovaries, unilateral; Z88.6 Allergy status to analgesic agent; Z91.013 Allergy to seafood; Z88.8 Allergy status to other drugs, medicaments and biological substances; Z91.018 Allergy to other foods; Z85.41 Personal history of malignant neoplasm of cervix uteri; Z98.84 Bariatric surgery status
CPT/HCPCS: 36415; 36600; 70450-TC; 71010; 80048; 80053; 80061; 82607; 82803-TC; 82962; 83036; 83540-TC; 83550-TC; 83605; 83690-TC; 83880; 84443-TC; 84484; 85025; 85379; 85610-TC; 85730-TC; 87040-TC; 87070-TC; 87081; 87186-TC; 93005; 93306; 93970; 94640; 94760; 96372; 96374; 97110-GP; 97116-GP; 97530-GP; 99285; J0696; J1170; J1650; J1815; J1940; J2270; J2405; J3370; J7050; J7060

== ENCOUNTER 2016-08-28 14:05 | Emergency (ER) | payer MEDICAID ==
[~2016-08-28] VITALS: Ht 167.6 cm; Wt 148.8 kg
[2016-08-28 14:05] VITALS: BP_SYST 123
[~2016-08-28 14:05] MED LIST: ALBMDI INH; AMIT100T2 PO; ASCO-339 PO; CALC-1094 PO; DULO60CA41 PO; FERR-57 PO; FLUT12AE3 IH; FOLI-59 PO; FURO80TA3 PO; GABA-333 PO; HYDR4TAB57 PO; INSU200I4 SQ; LIRA0.6P SQ; LORA1TAB PO; MORP100C17 PO; QUET50TA14 PO; SUCR1TAB78 PO; TOPI50TA20 PO; TRAZ300T2 PO; VITA-285 PO
[2016-08-28] MEDS ORDERED: IBUPROFEN 800 MG TABLET PO ONE (14:45)
[2016-08-28] MEDS ORDERED: DEXAMETHASONE SOD PHOSPHATE 10 MG/ML VIAL IM ONE (14:45)
[2016-08-28] MEDS ORDERED: ACETAMINOPHEN 325 MG TABLET PO ONE (14:45)
[2016-08-28 17:06] VITALS: BP_SYST 155
== END 2016-08-28 17:15 | disposition home or self-care (01) ==
LOC: SED 14:05
DX: S33.5XXA Sprain of ligaments of lumbar spine, initial encounter (principal); J45.909 Unspecified asthma, uncomplicated; E11.9 Type 2 diabetes mellitus without complications; I10 Essential (primary) hypertension; G43.909 Migraine, unspecified, not intractable, without status migrainosus; Z85.41 Personal history of malignant neoplasm of cervix uteri; Z86.73 Personal history of transient ischemic attack (TIA), and cerebral infarction without residual deficits; Z79.899 Other long term (current) drug therapy; Z88.6 Allergy status to analgesic agent; Z88.5 Allergy status to narcotic agent; Z88.8 Allergy status to other drugs, medicaments and biological substances; W01.0XXA Fall on same level from slipping, tripping and stumbling without subsequent striking against object, initial encounter; Y93.89 Activity, other specified; Y92.89 Other specified places as the place of occurrence of the external cause; Y99.8 Other external cause status
CPT/HCPCS: 72131; 96372; 99284; J1100

== ENCOUNTER 2016-08-28 18:57 | Emergency (ER) | payer MEDICAID ==
[~2016-08-28] VITALS: Ht 167.6 cm; Wt 148.8 kg
[2016-08-28 19:05] VITALS: BP_SYST 160
[2016-08-28] MEDS ORDERED: MAG HYDROX/AL HYDROX/SIMETH 30 ML, BELLADONNA ALKALOIDS/PHENOBARB 10 ML, LIDOCAINE VISC... PO ONE ×3 (19:15)
[2016-08-28] MEDS ORDERED: ONDANSETRON 4 MG ODT TAB PO ONE (19:15)
[2016-08-28] MEDS ORDERED: DIPHENHYDRAMINE INJ 50 MG/ML VIAL IM ONE (19:30)
[2016-08-28] MEDS ORDERED: PROMETHAZINE HCL 50 MG/ML AMP IM ONE ×2 (19:30→20:15)
[2016-08-28 20:06] LABS: BILIRUBIN,URINE NEGATIVE (NEGATIVE); BLOOD, URINE NEGATIVE (NEGATIVE); CLARITY/URINE CLEAR (CLEAR); COLOR,URINE YELLOW (YELLOW); GLUCOSE,URINE NEGATIVE (NEGATIVE); KETONES,URINE NEGATIVE (NEGATIVE); LEUKOCYTE ESTERASE ,URINE 1+ (NEGATIVE); NITRITE, URINE NEGATIVE (NEGATIVE); PROTEIN URINE NEGATIVE (NEGATIVE); UROBILINOGEN,URINE 0.2 (0.2-1.0)
[2016-08-28 20:18] LABS: BACTERIA,URINE FEW /HPF (None Seen); MUCUS,URINE None Seen /LPF (None Seen); RBC,URINE NONE SEEN /HPF (0-3); YEAST,URINE Few /HPF (None Seen)
[2016-08-28 20:56] LABS: BASOPHILS % (AUTO) 0.1 % (0.0-2.0); EOSINOPHILS % (AUTO) 0.2 % (0.0-4.0); HEMATOCRIT 33.6 % (36-48); HEMOGLOBIN 10.8 g/dL (12.0-16.0); LYMPHOCYTES # (AUTO) 0.6 K/uL (1.0-5.5); LYMPHOCYTES % (AUTO) 8.4 % (20.5-51.5); MEAN CORPUSCULAR HEMOGLOBIN 23 pg (27-31); MEAN CORPUSCULAR HGB CONC 32 % (32-36); MEAN CORPUSCULAR VOLUME 72 fL (79.0-98.0); MONOCYTES # (AUTO) 0.1 K/uL (0.0-1.0); MONOCYTES % (AUTO) 0.8 % (1.7-9.3); NEUTROPHILS # (AUTO) 6.1 K/uL (1.8-7.7); NEUTROPHILS % (AUTO) 90.5 % (40.0-70.0); PLATELET COUNT (AUTO) 277 K/uL (130-430); RED CELL DISTRIBUTION WIDTH 18.2 % (9.0-15.0); WHITE BLOOD COUNT (AUTO) 6.8 K/uL (4.8-10.8)
[2016-08-28 21:00] LABS: CALCIUM 9.6 mg/dL (8.4-11.0); CREATININE 0.8 mg/dL (0.55-1.30); POTASSIUM 4.1 mmol/L (3.5-5.1)
[2016-08-28 21:04] LABS: ALBUMIN 3.6 g/dL (3.4-4.8); TOTAL BILIRUBIN 0.3 mg/dL (0.0-1.0); TOTAL PROTEIN, SERUM 7.8 g/dL (6.4-8.3)
[2016-08-28] MEDS ORDERED: cefTRIAXone 1 GM IVPB PREMIX 50 ML IV ONE (21:15)
[2016-08-28] MEDS ORDERED: HYDROmorphone 2 MG/ML VIAL IVP ONE (21:30)
[2016-08-28 22:55] VITALS: BP_SYST 143
== END 2016-08-28 22:55 | disposition home or self-care (01) ==
LOC: SED 18:57
DX: N39.0 Urinary tract infection, site not specified (principal); J45.909 Unspecified asthma, uncomplicated; E11.9 Type 2 diabetes mellitus without complications; I10 Essential (primary) hypertension; G43.909 Migraine, unspecified, not intractable, without status migrainosus; Z85.41 Personal history of malignant neoplasm of cervix uteri; Z86.73 Personal history of transient ischemic attack (TIA), and cerebral infarction without residual deficits; Z79.4 Long term (current) use of insulin; Z79.899 Other long term (current) drug therapy; Z88.6 Allergy status to analgesic agent; Z88.5 Allergy status to narcotic agent; Z88.1 Allergy status to other antibiotic agents; Z88.8 Allergy status to other drugs, medicaments and biological substances
CPT/HCPCS: 36415; 74176; 80053; 81000; 82150; 83690; 85025; 87086; 96365; 96372; 96375; 99285; J0696; J1170; J1200; J2001; J2550; Q0162

== ENCOUNTER 2016-10-04 10:13 | Inpatient (IN) | payer MEDICAID ==
[~2016-10-04] VITALS: Ht 177.8 cm; Wt 136.1 kg
[2016-10-04 10:15] VITALS: BP_SYST 147
--- NOTE | 2016-10-04 10:28 | NUR ---
ER at bedside examining patient.
[2016-10-04] MEDS ORDERED: ALBUTEROL SULFATE 0.083% 2.5 MG/3 ML VIAL.NEB INH ONE ×2 (10:30→12:00)
[2016-10-04] MEDS ORDERED: LEVOFLOXACIN 500 MG/D5W 100 ML IV ONE (10:30)
--- NOTE | 2016-10-04 10:35 | NUR ---
R.T AT BEDSIDE. PT ON NEBULIZER TREATMENT.
[2016-10-04 11:13] LABS: EOSINOPHILS # (AUTO) 0.1 K/uL (0.0-0.4); MONOCYTES # (AUTO) 0.2 K/uL (0.0-1.0); RED BLOOD CELL COUNT(AUTO) 5.34 MIL/uL (4.2-6.2); RED CELL DISTRIBUTION WIDTH 17.8 % (9.0-15.0)
[2016-10-04 11:20] LABS: BASOPHILS % (AUTO) 0.4 % (0.0-2.0); EOSINOPHILS % (AUTO) 1.4 % (0.0-4.0); HEMATOCRIT 38.1 % (36-48); LYMPHOCYTES % (AUTO) 15.3 % (20.5-51.5); MEAN CORPUSCULAR HEMOGLOBIN 23 pg (27-31); MEAN CORPUSCULAR HGB CONC 32 % (32-36); MEAN CORPUSCULAR VOLUME 71 fL (79.0-98.0); MONOCYTES % (AUTO) 3.1 % (1.7-9.3); NEUTROPHILS # (AUTO) 5.5 K/uL (1.8-7.7); NEUTROPHILS % (AUTO) 79.8 % (40.0-70.0); PLATELET COUNT (AUTO) 328 K/uL (130-430); WHITE BLOOD COUNT (AUTO) 6.9 K/uL (4.8-10.8)
[2016-10-04 11:25] LABS: CALCIUM 9.5 mg/dL (8.4-11.0); CREATININE 0.81 mg/dL (0.55-1.30); POTASSIUM 3.4 mmol/L (3.5-5.1)
[2016-10-04 11:30] LABS: ALBUMIN 3.7 g/dL (3.4-4.8); TOTAL BILIRUBIN 0.3 mg/dL (0.0-1.0); TOTAL PROTEIN, SERUM 8.2 g/dL (6.4-8.3)
[2016-10-04] MEDS ORDERED: FUROSEMIDE 40 MG/4 ML VIAL IVP ONE (11:30)
[2016-10-04 11:32] LABS: PROTHROMBIN TIME 10.4 SECS (9.5-12.5)
--- NOTE | 2016-10-04 11:57 | NUR ---
PT WITH AUDIBLE WHEEZES, TYPING HER WORDS ON CELL PHONE TO KEEP HER FROM BEING OUT OF BREATH, SON AT BEDSIDE, CALLED R.T. FOR ANOTHER NEBULIZER TREATMENT. LASIX 40 MG IVP GIVEN ORDERED.
[2016-10-04] MEDS ORDERED: methylPREDNISolone SOD SUCC/PF 62.5 MG/ML VIAL IVP ONE (12:00)
[2016-10-04] MEDS ORDERED: DIPHENHYDRAMINE INJ 50 MG/ML VIAL IVP ONE (12:00)
[2016-10-04] MEDS ORDERED: ONDANSETRON HCL 4 MG/2 ML VIAL IVP ONE (12:00)
[2016-10-04] MEDS ORDERED: IPRATROPIUM BROM 0.5 MG/2.5 ML VIAL.NEB (ATROVENT) INH ONE (12:00)
[2016-10-04] MEDS ORDERED: HYDROmorphone 1 MG INJ. 1 MG/ML AMPUL IVP ONE (12:15)
[2016-10-04] MEDS ORDERED: POTASSIUM CHLORIDE 20 MEQ TAB.PRT.SR PO ONE (12:30)
--- NOTE | 2016-10-04 12:30 | NUR ---
PT ASSISTED BY HER SON TOWARDS THE BATHROOM.
--- NOTE | 2016-10-04 12:32 | NUR ---
PT COMPLAINED OF CHEST/NAPE PAIN. DR CARLTON INFORMED AND ORDERED DILAUDID 1 MG IVP. ORDERS CARRIED OUT.
--- NOTE | 2016-10-04 12:52 | NUR ---
ADMISSION NOTE Received patient from ER via gurney. Patient admitted with diagnosis of Chest pain. Patient oriented to hospital room, call light, toileting, pain management and safety-teach back done. Patient informed that Miguelito will be the nurse and that their room number is 117A. Personal belongings checked and Belongings List documented. Call light within reach.
--- NOTE | 2016-10-04 12:55 | NUR ---
Patient will be admitted to care of Dr. Huddleston. Admitted to Tele unit. Will go to room 117A. Belongings list completed. Summary report printed. Bedside report given to NEDA Mccarthy.
--- NOTE | 2016-10-04 13:00 | NUR ---
INTRODUCTION AND ASSESSMENT FOR ADMISSION TO TELEMETRY UNIT. Patient denies medical problems other than back surgery , smoking, and copd.
--- NOTE | 2016-10-04 13:10 | NUR ---
PHOTO OF SURGICAL INCISION SITE TAKEN FOR CHART.
[2016-10-04] MEDS ORDERED: NON-FORMULARY MEDICATION (Gabapentin 800 MG) PO SCH (14:00)
--- NOTE | 2016-10-04 14:05 | NUR ---
Call from MD Huddleston missed. Return call and MD requests to verify and restart if correct and not taken today her psych medication .
--- NOTE | 2016-10-04 14:09 | NUR ---
Patient son call for his mother at this time. Request for pain medication .
[2016-10-04 14:11] VITALS: BP_SYST 131
[2016-10-04] MEDS ORDERED: ACETAMINOPHEN 325 MG TABLET PO PRN (14:15)
[2016-10-04] MEDS ORDERED: FUROSEMIDE 80 MG TABLET PO SCH (15:00)
--- NOTE | 2016-10-04 15:04 | NUR ---
Update to patient medication reconciliation at this time. Changes / descrepencies resolved. MD request to clarify, and start medication especially psych medication at this time if doses missed today.
[2016-10-04] MEDS ORDERED: ALBU2.5V7 INH (15:19)
[2016-10-04 16:11] VITALS: BP_SYST 131
[2016-10-04] MEDS ORDERED: LORazepam 1 MG TABLET PO PRN (16:30)
[2016-10-04] MEDS ORDERED: NITROGLYCERIN 0.4 MG TAB.SUBL SL PRN (16:30)
[2016-10-04] MEDS ORDERED: ASPIRIN 81 MG TAB.CHEW PO SCH (16:30)
[2016-10-04 16:50] VITALS: BP_SYST 150
[2016-10-04] MEDS: SUCRALFATE 1 GM TABLET PO SCH ×2 (17:22→20:26)
[2016-10-04] MEDS: FERROUS SULFATE 325 MG TABLET.DR PO SCH ×2 (17:23→20:26)
[2016-10-04] MEDS: RIVAROXABAN 10 MG TABLET PO SCH (18:30)
[2016-10-04] MEDS ORDERED: LIP40 PO (18:54)
[2016-10-04] MEDS ORDERED: ESOM20CA PO (18:56)
--- NOTE | 2016-10-04 18:57 | NUR ---
Handoff report for night nurse. Re-verified doses of meds. Had spouse bring meds unavailable including gabapentin, two types of insulin (arriving 10/05) per spouse, trazadone, and amitryptiline. Patient brought meds except insulin. Pulse drop after patient had nitroglycerin per medical instrument technician to 55 from 105. patient also took a dose of morphine from her home supply. Decided not to give anymore nitro even though patient says it is like an elephant sitting on her chest.
[2016-10-04 19:03] LABS: BILIRUBIN,URINE NEGATIVE (NEGATIVE); BLOOD, URINE NEGATIVE (NEGATIVE); CLARITY/URINE SL HAZY (CLEAR); COLOR,URINE YELLOW (YELLOW); GLUCOSE,URINE NEGATIVE (NEGATIVE); KETONES,URINE NEGATIVE (NEGATIVE); LEUKOCYTE ESTERASE ,URINE NEGATIVE (NEGATIVE); NITRITE, URINE NEGATIVE (NEGATIVE); PROTEIN URINE NEGATIVE (NEGATIVE); UROBILINOGEN,URINE 0.2 (0.2-1.0)
[2016-10-04] MEDS: IPRATROPIUM/ALBUTEROL SULFATE 3 ML AMPUL.NEB INH SCH (19:45)
[2016-10-04 20:00] VITALS: BP_SYST 155
--- NOTE | 2016-10-04 20:00 | NUR ---
Initial Notes Received patient resting in bed, awake, alert, oriented, visitors at bedside. Patient denies any acute distress or pain at this time. Vital signs stable. Breathing is even and unlabored on room air. PICC line noted to left upper arm. Dressing clean/dry/intact. Offered to perform PICC dressing change at this time, but patient refused, asking to wait for a later time. Educated patient on use of call light for assistance and fall precautions, patient verbalized understanding. Needs addressed. Call light in hand, will continue to monitor.
[2016-10-04] MEDS: VANCOMYCIN HCL 1 GM/NS PREMIX 250 ML IV SCH (20:24)
[2016-10-04] MEDS: FUROSEMIDE 40 MG TABLET PO SCH (20:25)
[2016-10-04] MEDS: GABAPENTIN 400 MG CAPSULE PO SCH (20:25)
[2016-10-04] MEDS: AMITRIPTYLINE HCL 25 MG TABLET (ELAVIL) PO SCH (20:25)
[2016-10-04] MEDS: TOPIRAMATE 25 MG TABLET(TOPAMAX) PO SCH (20:26)
[2016-10-04] MEDS: traZODone HCL 50 MG TABLET (DESYREL) PO SCH (20:29)
[2016-10-04] MEDS: MORPHINE SULFATE 100 MG TABLET.SA PO SCH (20:47)
[2016-10-04] MEDS: INSULIN ASPART 100 UNITS/ML, 10 ML VIAL (NovoLOG) SUBCUT PRN (20:47)
[2016-10-04] MEDS ORDERED: MORPHINE SULFATE 100 MG PO SCH (21:00)
[2016-10-04] MEDS ORDERED: NON-FORMULARY MEDICATION (Quetiapine Fumarate (Seroquel Xr) 50 MG) PO SCH (21:00)
[2016-10-04] MEDS ORDERED: INSULIN DEGLUDEC SQ SCH (21:00)
[2016-10-04] MEDS: methylPREDNISolone SOD SUCC 40 MG/ML VIAL IVP SCH (21:58)
[2016-10-04] MEDS: HYDROmorphone 2 MG TAB PO PRN (21:59)
[2016-10-04] MEDS ORDERED: methylPREDNISolone SOD SUCC/PF 62.5 MG/ML VIAL IVP SCH (22:00)
--- NOTE | 2016-10-04 22:00 | NUR ---
Rounds Patient resting in bed, on laptop. Patient denies any acute distress or pain at this time. Breathing is even and unlabored. IV site patent/clean/dry. Needs addressed. Call light in hand, fall precautions in place. Will continue to monitor.
--- NOTE | 2016-10-05 | NUR ---
Rounds Patient resting in bed, awake. Patient denies any acute distress or pain at this time. Breathing is even and unlabored. Needs addressed. Call light in hand, fall precautions in place. Will continue to monitor.
[2016-10-05 00:14] VITALS: BP_SYST 136
[2016-10-05] MEDS: IPRATROPIUM/ALBUTEROL SULFATE 3 ML AMPUL.NEB INH SCH ×3 (00:49→13:39)
--- NOTE | 2016-10-05 02:00 | NUR ---
Rounds Patient resting in bed, playing a game on laptop. Patient denies any acute distress or pain at this time. Breathing is even and unlabored. PICC dressing changed performed, aseptic technique used, patient tolerated well. Needs addressed. Call light in hand, fall precautions in place. Will continue to monitor.
--- NOTE | 2016-10-05 03:29 | NUR ---
CONSULTATION PAGED REASON FOR CONSULTATION:CHEST PAIN WAS CONSULT CALLED?Y PERSON WHO WAS NOTIFIED:LAINE CONSULTING PHYSICIAN:LATISHA ENGLISH INFORMATION SECURITY CONSULTANT SPECIALTY:CARDIO INFORMATION SECURITY CONSULTANT PHONE NUMBER:[phone]
--- NOTE | 2016-10-05 04:00 | NUR ---
Rounds Patient resting in bed, awake. Patient denies any acute distress or pain at this time. Breathing is even and unlabored. Snack given to patient. Needs addressed. Call light in hand, will continue to monitor.
[2016-10-05 04:27] VITALS: BP_SYST 116
[2016-10-05] MEDS: methylPREDNISolone SOD SUCC 40 MG/ML VIAL IVP SCH ×3 (05:48→21:53)
[2016-10-05] MEDS: INSULIN ASPART 100 UNITS/ML, 10 ML VIAL (NovoLOG) SUBCUT PRN ×4 (05:55→21:57)
--- NOTE | 2016-10-05 06:44 | NUR ---
Closing Notes Patient resting in bed, awake. Patient denies any acute distress or pain at this time. Breathing is even and unlabored. IV site patent/clean/dry, no S/S infection/infiltration noted. Needs addressed throughout shift. Call light in hand, fall precautions in place. Will continue to monitor for changes and safety, and endorse all patient care/needs to oncoming nurse.
[2016-10-05] MEDS: VANCOMYCIN HCL 1 GM/NS PREMIX 250 ML IV SCH ×2 (07:56→21:49)
[2016-10-05 08:00] VITALS: BP_SYST 125
--- NOTE | 2016-10-05 08:00 | NUR ---
initial notes rec patient awake alert with a midline on the left upper arm. no infiltration noted. resp easy and unlabored. no acute distress noted. bed in low position and side rails up and locked. call light within reached and knows when to call for assistance.
[2016-10-05] MEDS: MORPHINE SULFATE 100 MG TABLET.SA PO SCH ×2 (08:13→21:51)
[2016-10-05] MEDS: FERROUS SULFATE 325 MG TABLET.DR PO SCH ×3 (08:14→21:50)
[2016-10-05] MEDS: SUCRALFATE 1 GM TABLET PO SCH ×4 (08:14→21:50)
[2016-10-05] MEDS: TOPIRAMATE 25 MG TABLET(TOPAMAX) PO SCH ×2 (08:14→21:52)
[2016-10-05] MEDS: GABAPENTIN 400 MG CAPSULE PO SCH ×3 (08:15→21:50)
[2016-10-05] MEDS ORDERED: VITAMIN B COMPLEX 1 CAP/TAB PO SCH (09:00)
[2016-10-05] MEDS ORDERED: POTASSIUM CHLORIDE 20 MEQ TAB.PRT.SR PO SCH (09:00)
[2016-10-05] MEDS: FUROSEMIDE 40 MG TABLET PO SCH ×2 (09:00→21:50)
[2016-10-05] MEDS ORDERED: MULTIVITS,CA,MINERALS/IRON/FA 1 TABLET PO SCH (09:00)
[2016-10-05] MEDS ORDERED: ASCORBIC ACID 500 MG TABLET PO SCH (09:00)
[2016-10-05] MEDS ORDERED: DULoxetine HCL 30 MG CAPSULE.DR (CYMBALTA) PO SCH (09:00)
[2016-10-05] MEDS ORDERED: LIRAGLUTIDE 1.8 UNIT SQ SCH (09:00)
--- NOTE | 2016-10-05 09:00 | NUR ---
rounds seen by dr soto and with orders.
[2016-10-05] MEDS ORDERED: DIPHENHYDRAMINE HCL 50 MG CAPSULE PO PRN (10:45)
--- NOTE | 2016-10-05 10:50 | NUR ---
rounds dr frazier is here and made rounds and waiting for patient lab works. mentioned to her also c/o of itchiness and with order.
[2016-10-05] MEDS ORDERED: DIPHENHYDRAMINE HCL 50 MG CAPSULE ONE (11:07)
[2016-10-05 11:08] LABS: CALCIUM 9.3 mg/dL (8.4-11.0); CREATININE 0.92 mg/dL (0.55-1.30); POTASSIUM 4.1 mmol/L (3.5-5.1)
[2016-10-05 12:00] VITALS: BP_SYST 125
[2016-10-05] MEDS: HYDROmorphone 2 MG TAB PO PRN ×2 (12:13→18:16)
--- NOTE | 2016-10-05 12:14 | NUR ---
DC PLANNING: Received order from dr. Huddleston to transfer pt. to [facility]. The pt. is agreeable with the POC. The pt. 's spouse request pt. transfer to [facility]. [facility] , 2. [facility] . Luna Newman dt personal reason/poor nursing care for his family member. Addendum: 10/05/16 at 1241 by Katie Morejon RN >> Called and s/w ngozi Sanchez line at [facility] # [phone] and Fax the pt. referral package attn to ngozi Ornelas # [phone], Track # [phone] . Also informed her to the pt.'s request the hospital location above. Laura will call back with the updated transfer process. Addendum: 10/05/16 at 1408 by Vivien ALFONSO Ordered Radiology CD. Placed transportation packet in nurses station. Addendum: 10/05/16 at 1459 by Katie Morejon RN >> Informed Parul that after spoke with pt. and her spouse, they still refused transferring to [facility]. The pt. stated " no nurse was helping her when she fell at the las time." She refused to go there. -- Parul will consult with Ceci and call me back. Addendum: 10/05/16 at 1643 by Katie Morejon RN >> Received call back from Parul stated " she will transfer the pt. to [facility] and will arrange for bed assignment. She will call nursing station when bed available. The pt and spouse are agreeable with transferring to [facility], possible this pm, otherwise would be until bed given from [facility]. NEDA Ring made aware. >> Arranged [facility] on " will call " ALS transfer with margot Patel. Track [id number] (please note the revised track#) Addendum: 10/05/16 at 1703 by Katie Morejon RN >> Received a call back from Jorge stated " to cancel the service dt [facility] dose not have ALS ambulance available for the pt. today. >> Called [facility] , ALS transfer. There is no nurse available for transport today. >> Arranged [facility] ambulance on " will call with manpreet queen " ALS transfer with margot Hernandez. Track [id number] (please note the revised track#).
--- NOTE | 2016-10-05 12:31 | NUR ---
rounds pt's came to the desk and wanted to talk to willie, refusing to be transferred to the contracted hospital.
--- NOTE | 2016-10-05 14:00 | NUR ---
rounds at the bedside and brought food from outside. no hypo hyperglycemic reaction noted. call light within reached.
[2016-10-05 16:00] VITALS: BP_SYST 127
--- NOTE | 2016-10-05 16:00 | NUR ---
rounds asleep when rounds made. call light within reached. no acute distress noted.
--- NOTE | 2016-10-05 16:15 | NUR ---
WOUND EVALUATION: Wound Consult received from Dr. Huddleston. Thank you, Dr. Huddleston, for the consult. Patient received in a [place] Bed with an Atmos-Air 9000 mattress, awake, alert, and oriented. Patient is able to turn in bed independently. Patricio Score is a 21. Past Medical History: Asthma, Diabetes Mellitus, CHF, history of Pericarditis, back surgery, and six Angiograms. Recent Labs: WBC 6.9, RBC 5.34, hemoglobin 12.0, hematocrit 38.1, sodium 133, chloride 97, BUN 16, creatinine 0.92, GFR 70, glucose 294. Blood Culture x 2 and MRSA screen results in progress. Intrinsic factors that delay wound healing: Asthma, Diabetes Mellitus, CHF. Extrinsic factors that delay wound healing: Decreased mobility. Wound Assessment: 1) Lower Thoracic Area: Surgical site with scar tissue (patient says there is a small hole that drains at times), present on admission. No hole or opening was visible. No drainage visible, even with palpation and milking. Sacral area has bands of redness. Recommend: Cleanse site with normal saline. Apply sure prep onto evan-wound.Cover with foam dressin. Perform site care daily, and as needed for dressing soiling or dislodgement. Also recommend: Encourage and assist patient as needed with repositioning side to side only every 2 hours with pillow support and off-load pressure areas with pillows for pressure re-distribution. Perform skin care and monitor skin integrity Q shift. Use moisture barrier cream on buttocks and other moisture susceptible areas QID and as needed for soiling.
[2016-10-05] MEDS: RIVAROXABAN 10 MG TABLET PO SCH (17:54)
--- NOTE | 2016-10-05 18:00 | NUR ---
rounds no hypo hyperglycemic reaction noted.dressing on the mid back is intact, done by nick wound nurse. call light within reached. bed in low position.
--- NOTE | 2016-10-05 19:00 | NUR ---
closing notes endorsed to germaine smith patient will be transferred tonight to [facility]. pt is drowsy and asleep form meds that was given. no sob noted, no acute distress noted.
[2016-10-05 20:00] VITALS: BP_SYST 154
--- NOTE | 2016-10-05 20:00 | NUR ---
Initial PM Note Pt was received lying in bed fully awake, alert and oriented x4. No acute distress noted and no c/o pain or discomfort. Pt is being transferred to [facility]. PICC Line is patent in LATHA and the dressing is dry and intact. Skin is warm and dry to touch. No signs or symptoms of hypoglycemia or hyperglycemia noted. Fall and safety precautions are in place. Call light is with pt and bed alarm is on. Pt was instructed to call for assistance as needed and pt verbalized understanding. Bed is in the lowest and locked positions with three side rails up. Will continue to monitor pt.
--- NOTE | 2016-10-05 20:45 | NUR ---
Rounds Pt was sitting up on the side of her bed with both legs on the floor. Pt remains fully awake, alert and oriented x4. Speech is clear and pt is able to make her needs known. Pt requested clean gown from AUTO GLASS TECHNICIAN and AUTO GLASS TECHNICIAN left to get the clean gown. AUTO GLASS TECHNICIAN informed pt not to get out of bed or ambulate without calling for assistance and pt verbalized understanding.
--- NOTE | 2016-10-05 20:50 | NUR ---
Found on Floor SONAR WATCHSTANDER came back to pt's room with a clean gown and found pt sitting on the floor. Pt stated she attempted to get back in bed by lifting one leg at a time from the floor and didn't know how she fell on the floor. Pt was assisted back to bed with three assists. No injury noted.
--- NOTE | 2016-10-05 21:22 | NUR ---
Report Report was given via telephone to nurse Hargrove at [facility].
[2016-10-05] MEDS: traZODone HCL 50 MG TABLET (DESYREL) PO SCH (21:51)
[2016-10-05] MEDS: AMITRIPTYLINE HCL 25 MG TABLET (ELAVIL) PO SCH (21:51)
--- NOTE | 2016-10-05 21:55 | NUR ---
Blood Sugar Accucheck 152. Skin remains warm and dry to touch. 2units NovoLog Insulin and 20units Levemir Insulin given SQ. Pt ate 100% HS snacks.
--- NOTE | 2016-10-05 22:45 | NUR ---
Transportation Charge Nurse Gomez has been calling several Ambulance companies for patient's transfer to [facility]. Some Ambulance companies are unable to transport patient due to her weight and some due to patient's Insurance. Will transport patient as soon as Ambulance is available.
[2016-10-06 00:20] VITALS: BP_SYST 132
--- NOTE | 2016-10-06 00:30 | NUR ---
Rounds Pt is sleeping comfortably in bed. No difficulty breathing noted. Call light is with pt and bed alarm is on.
[2016-10-06] MEDS: IPRATROPIUM/ALBUTEROL SULFATE 3 ML AMPUL.NEB INH SCH (02:02)
--- NOTE | 2016-10-06 02:30 | NUR ---
Transfer Pt was transferred to [facility] via Ambulance in stable condition. All patient's belongings were transferred with her. Wrist ID band was removed and placed in the shredder. Transition of Care instructions already explained and given to patient who verbalized understanding. PICC line was left in place with the dressing dry and intact. All pt's questions were answered.
== END 2016-10-06 02:40 | disposition short-term general hospital (02) | DRG 203 ==
LOC: SED 10:16 → STU 12:20 → SMU 10-05 20:48
PROVIDERS: ADMIT Internal Medicine; ATTEND Internal Medicine
DX: R07.89 Other chest pain (principal); I11.0 Hypertensive heart disease with heart failure; Z68.41 Body mass index [BMI] 40.0-44.9, adult; J45.901 Unspecified asthma with (acute) exacerbation; I50.9 Heart failure, unspecified; E66.01 Morbid (severe) obesity due to excess calories; Z79.01 Long term (current) use of anticoagulants; E11.9 Type 2 diabetes mellitus without complications; G43.909 Migraine, unspecified, not intractable, without status migrainosus; F32.9 Major depressive disorder, single episode, unspecified; E87.6 Hypokalemia; G89.4 Chronic pain syndrome; M54.9 Dorsalgia, unspecified; Z85.41 Personal history of malignant neoplasm of cervix uteri; Z90.710 Acquired absence of both cervix and uterus; Z88.8 Allergy status to other drugs, medicaments and biological substances; Z88.6 Allergy status to analgesic agent; Z91.018 Allergy to other foods; Z86.711 Personal history of pulmonary embolism; Z83.3 Family history of diabetes mellitus; Z82.49 Family history of ischemic heart disease and other diseases of the circulatory system; Z79.4 Long term (current) use of insulin; Z86.718 Personal history of other venous thrombosis and embolism; Z79.899 Other long term (current) drug therapy; F17.210 Nicotine dependence, cigarettes, uncomplicated
CPT/HCPCS: 36415; 71010; 72050-TC; 80048; 80053; 81003; 82962; 83605; 83735-TC; 83880; 84484; 85025; 85610-TC; 87040-TC; 87081; 93005; 94640; 94760; 96365; 96375; 99285; J1030; J1170; J1200; J1815; J1940; J1956; J2405; J2930; J3370; Q0163

== ENCOUNTER 2016-12-25 11:32 | Inpatient (IN) | payer MEDICAID ==
[~2016-12-25] VITALS: Ht 167.6 cm; Wt 134.7 kg
[2016-12-25] VITALS (8 sets, daily range): BP systolic 106–128
[~2016-12-25 11:32] MED LIST changes: -ALBMDI INH; +ALBU2.5V7 INH; +ESOM20CA PO; +LIP40 PO
[2016-12-25] MEDS ORDERED: NITROGLYCERIN 1 INCH (GM) OINT. TP ONE (11:45)
[2016-12-25 12:50] LABS: CALCIUM 8.9 mg/dL (8.4-11.0); CREATININE 0.72 mg/dL (0.55-1.30); POTASSIUM 3.4 mmol/L (3.5-5.1)
[2016-12-25 12:53] LABS: MEAN CORPUSCULAR HEMOGLOBIN 24 pg (27-31); MEAN CORPUSCULAR VOLUME 75 fL (79.0-98.0); MONOCYTES # (AUTO) 0.3 K/uL (0.0-1.0); WHITE BLOOD COUNT (AUTO) 5.3 K/uL (4.8-10.8)
[2016-12-25 12:56] LABS: PROTHROMBIN TIME 11.3 SECS (9.5-12.5); TOTAL BILIRUBIN 0.6 mg/dL (0.0-1.0)
[2016-12-25 12:58] LABS: BASOPHILS % (AUTO) 0.4 % (0.0-2.0); HEMOGLOBIN 11.1 g/dL (12.0-16.0); MEAN CORPUSCULAR HGB CONC 32 % (32-36)
[2016-12-25 13:04] LABS: EOSINOPHILS % (AUTO) 0.9 % (0.0-4.0); HEMATOCRIT 34.5 % (36-48); LYMPHOCYTES # (AUTO) 0.9 K/uL (1.0-5.5); MONOCYTES % (AUTO) 5.4 % (1.7-9.3); NEUTROPHILS # (AUTO) 4.1 K/uL (1.8-7.7); NEUTROPHILS % (AUTO) 76.3 % (40.0-70.0); PLATELET COUNT (AUTO) 250 K/uL (130-430); RED BLOOD CELL COUNT(AUTO) 4.61 MIL/uL (4.2-6.2); RED CELL DISTRIBUTION WIDTH 16.2 % (9.0-15.0)
[2016-12-25 13:08] LABS: BILIRUBIN,URINE NEGATIVE (NEGATIVE); BLOOD, URINE NEGATIVE (NEGATIVE); CLARITY/URINE SL CLOUDY (CLEAR); COLOR,URINE YELLOW (YELLOW); GLUCOSE,URINE NEGATIVE (NEGATIVE); KETONES,URINE 1+ (NEGATIVE); LEUKOCYTE ESTERASE ,URINE NEGATIVE (NEGATIVE); NITRITE, URINE NEGATIVE (NEGATIVE); PH,URINE >=9.0 (5.0-8.0); PROTEIN URINE 1+ (NEGATIVE)
[2016-12-25 13:24] LABS: BACTERIA,URINE FEW /HPF (None Seen); MUCUS,URINE 1+ /LPF (None Seen); RBC,URINE 0-3 /HPF (0-3); WBC,URINE 0-3 /HPF (0-3)
[2016-12-25] MEDS ORDERED: POTASSIUM CHLORIDE 20 MEQ TAB.PRT.SR PO ONE (13:45)
[2016-12-25] MEDS ORDERED: MORPHINE 4 MG/ML INJ. SYRINGE IVP ONE (14:00)
[2016-12-25] MEDS ORDERED: DIPHENHYDRAMINE INJ 50 MG/ML VIAL IVP ONE (14:00)
[2016-12-25] MEDS ORDERED: NACL 0.9% 1,000 ML IV SCH (14:05)
[2016-12-25] MEDS ORDERED: POTASSIUM CHLORIDE 20 MEQ TAB.PRT.SR PO PRN (14:15)
[2016-12-25] MEDS ORDERED: LORazepam 2 MG/ML VIAL IVP PRN (14:15)
[2016-12-25] MEDS ORDERED: BISACODYL 10 MG/SUPPOSITORY RC PRN (14:15)
[2016-12-25] MEDS ORDERED: SIMETHICONE 80 MG TAB.CHEW PO PRN (14:15)
[2016-12-25] MEDS ORDERED: MORPHINE 2 MG/ML INJ. SYRINGE IVP PRN (14:15)
[2016-12-25] MEDS ORDERED: ALBUTEROL SULFATE 0.083% 2.5 MG/3 ML VIAL.NEB INH PRN (14:15)
[2016-12-25] MEDS ORDERED: NITROGLYCERIN 0.4 MG TAB.SUBL SL PRN (14:15)
[2016-12-25] MEDS ORDERED: ZOLPIDEM TARTRATE 5 MG TABLET PO PRN (14:15)
[2016-12-25] MEDS ORDERED: ACETAMINOPHEN 325 MG TABLET PO PRN (14:15)
[2016-12-25] MEDS ORDERED: HYDROMORPHONE HCL 4 MG PO PRN (14:15)
[2016-12-25] MEDS ORDERED: DEXTROSE 50% JECT 50 ML DISP.SYRIN IV PRN (14:30)
[2016-12-25] MEDS ORDERED: PANTOPRAZOLE SODIUM 40 MG/VIAL (PROTONIX) IVP ONE (14:30)
[2016-12-25] MEDS ORDERED: [UNRECOGNIZED DRUG - CODE] IV (15:38)
[2016-12-25] MEDS ORDERED: MORPHINE 2 MG/ML INJ. SYRINGE ONE (15:59)
[2016-12-25] MEDS: TOPIRAMATE 100 MG TABLET(Topamax) PO SCH ×2 (17:19→21:16)
[2016-12-25] MEDS: SUCRALFATE 1 GM TABLET PO SCH ×2 (17:19→21:17)
[2016-12-25] MEDS: INSULIN REGULAR, HUMAN 100 UNITS/ML, 10 ML VIAL (novoLIN R) SUBCUT PRN ×2 (17:32→22:06)
[2016-12-25 17:58] LABS: PHOSPHORUS 3.2 mg/dL (2.7-4.5); THYROID STIMULATING HORMONE 0.23 uIu/mL (0.34-4.82)
[2016-12-25 18:18] LABS: FREE T4 (FREE THYROXINE) 1.1 ng/dL (0.6-1.6)
[2016-12-25] MEDS: MORPHINE 4 MG/ML INJ. SYRINGE IVP PRN (20:40)
[2016-12-25] MEDS ORDERED: NON-FORMULARY MEDICATION (Quetiapine Fumarate (Seroquel Xr) 50 MG) PO SCH (21:00)
[2016-12-25] MEDS ORDERED: INSULIN DEGLUDEC SQ SCH (21:00)
[2016-12-25] MEDS ORDERED: HEPARIN SODIUM,PORCINE 5000 UNITS/ML VIAL SUBCUT SCH (21:00)
[2016-12-25] MEDS ORDERED: ADVAIR INH SCH (21:00)
[2016-12-25] MEDS: DOCUSATE SODIUM 100 MG CAPSULE PO SCH (21:16)
[2016-12-25] MEDS: FERROUS SULFATE 325 MG TABLET.DR PO SCH (21:17)
[2016-12-25] MEDS: APIXABAN 2.5 MG TABLET PO SCH (21:17)
[2016-12-25] MEDS: METOPROLOL TARTRATE 25 MG TABLET PO SCH (21:20)
[2016-12-25] MEDS: traZODone HCL 50 MG TABLET (DESYREL) PO SCH (21:35)
[2016-12-25] MEDS: GABAPENTIN 400 MG CAPSULE PO SCH (21:35)
[2016-12-25] MEDS: AMITRIPTYLINE HCL 25 MG TABLET (ELAVIL) PO SCH (21:35)
[2016-12-25] MEDS: MORPHINE SULFATE 100 MG TABLET.SA PO SCH (21:37)
[2016-12-25] MEDS: ONDANSETRON HCL 4 MG/2 ML VIAL IVP PRN (22:03)
[2016-12-26] VITALS (7 sets, daily range): BP systolic 97–121
[2016-12-26] MEDS: ONDANSETRON HCL 4 MG/2 ML VIAL IVP PRN ×2 (01:44→06:58)
[2016-12-26] MEDS: MORPHINE 4 MG/ML INJ. SYRINGE IVP PRN ×4 (01:44→15:39)
[2016-12-26] MEDS: GABAPENTIN 400 MG CAPSULE PO SCH ×3 (05:48→21:32)
[2016-12-26 07:39] LABS: BASOPHILS % (AUTO) 0.6 % (0.0-2.0); EOSINOPHILS # (AUTO) 0.2 K/uL (0.0-0.4); EOSINOPHILS % (AUTO) 3.8 % (0.0-4.0); HEMOGLOBIN 10.8 g/dL (12.0-16.0); LYMPHOCYTES % (AUTO) 37.3 % (20.5-51.5); MEAN CORPUSCULAR HEMOGLOBIN 24 pg (27-31); MEAN CORPUSCULAR HGB CONC 32 % (32-36); MEAN CORPUSCULAR VOLUME 76 fL (79.0-98.0); MONOCYTES # (AUTO) 0.3 K/uL (0.0-1.0); MONOCYTES % (AUTO) 6.5 % (1.7-9.3); NEUTROPHILS # (AUTO) 2.8 K/uL (1.8-7.7); NEUTROPHILS % (AUTO) 51.8 % (40.0-70.0); PLATELET COUNT (AUTO) 254 K/uL (130-430); RED BLOOD CELL COUNT(AUTO) 4.49 MIL/uL (4.2-6.2); RED CELL DISTRIBUTION WIDTH 16.4 % (9.0-15.0); WHITE BLOOD COUNT (AUTO) 5.3 K/uL (4.8-10.8)
[2016-12-26 08:02] LABS: CREATININE 0.87 mg/dL (0.55-1.30); POTASSIUM 3.5 mmol/L (3.5-5.1); TOTAL BILIRUBIN 0.4 mg/dL (0.0-1.0)
[2016-12-26 08:03] LABS: ALBUMIN 2.8 g/dL (3.4-4.8)
[2016-12-26] MEDS: METOPROLOL TARTRATE 25 MG TABLET PO SCH ×2 (08:47→21:12)
[2016-12-26] MEDS: LISINOPRIL 5 MG TABLET PO SCH (08:47)
[2016-12-26] MEDS: FERROUS SULFATE 325 MG TABLET.DR PO SCH ×2 (08:50→21:10)
[2016-12-26] MEDS: DOCUSATE SODIUM 100 MG CAPSULE PO SCH ×2 (08:50→21:13)
[2016-12-26] MEDS: APIXABAN 2.5 MG TABLET PO SCH ×2 (08:50→21:10)
[2016-12-26] MEDS: PANTOPRAZOLE SODIUM 40 MG/VIAL (PROTONIX) IVP SCH (08:50)
[2016-12-26] MEDS: TOPIRAMATE 100 MG TABLET(Topamax) PO SCH ×3 (08:50→21:13)
[2016-12-26] MEDS: ASCORBIC ACID 500 MG TABLET PO SCH (08:50)
[2016-12-26] MEDS: SUCRALFATE 1 GM TABLET PO SCH ×4 (08:50→21:13)
[2016-12-26] MEDS: ATORVASTATIN 20 MG TABLET PO SCH (08:51)
[2016-12-26] MEDS: MULTIVITAMINS TAB 1 TABLET PO SCH (08:53)
[2016-12-26] MEDS: DULoxetine HCL 30 MG CAPSULE.DR (CYMBALTA) PO SCH (08:59)
[2016-12-26] MEDS ORDERED: LIRAGLUTIDE 1.8 UNIT SQ SCH (09:00)
[2016-12-26] MEDS: MORPHINE SULFATE 100 MG TABLET.SA PO SCH ×2 (09:00→21:13)
[2016-12-26] MEDS ORDERED: MULTIVITS,CA,MINERALS/IRON/FA 1 TABLET PO SCH (09:00)
[2016-12-26] MEDS: INSULIN REGULAR, HUMAN 100 UNITS/ML, 10 ML VIAL (novoLIN R) SUBCUT PRN ×2 (16:45→21:05)
[2016-12-26] MEDS: VANCOMYCIN HCL 1,500 MG in NS 250 ML IV SCH (17:51)
[2016-12-26] MEDS: HYDROmorphone 1 MG INJ. 1 MG/ML AMPUL IVP PRN (21:09)
[2016-12-26] MEDS ORDERED: traZODone HCL 50 MG TABLET (DESYREL) ONE (21:32)
[2016-12-26] MEDS: AMITRIPTYLINE HCL 25 MG TABLET (ELAVIL) PO SCH (21:32)
[2016-12-26] MEDS: traZODone HCL 50 MG TABLET (DESYREL) PO SCH (21:33)
[2016-12-26] MEDS ORDERED: GABAPENTIN 400 MG CAPSULE ONE (21:34)
[2016-12-27] VITALS: BP_SYST 105
[2016-12-27] MEDS: MORPHINE 4 MG/ML INJ. SYRINGE IVP PRN ×2 (00:33→06:27)
[2016-12-27 04:00] VITALS: BP_SYST 122
[2016-12-27] MEDS: GABAPENTIN 400 MG CAPSULE PO SCH ×2 (05:54→13:30)
[2016-12-27] MEDS: VANCOMYCIN HCL 1,500 MG in NS 250 ML IV SCH ×2 (05:55→18:00)
[2016-12-27 07:11] LABS: BASOPHILS % (AUTO) 0.7 % (0.0-2.0); EOSINOPHILS # (AUTO) 0.2 K/uL (0.0-0.4); EOSINOPHILS % (AUTO) 3.4 % (0.0-4.0); HEMATOCRIT 34.3 % (36-48); HEMOGLOBIN 11.4 g/dL (12.0-16.0); MEAN CORPUSCULAR HEMOGLOBIN 25 pg (27-31); MEAN CORPUSCULAR HGB CONC 33 % (32-36); MEAN CORPUSCULAR VOLUME 75 fL (79.0-98.0); MONOCYTES # (AUTO) 0.4 K/uL (0.0-1.0); MONOCYTES % (AUTO) 6.4 % (1.7-9.3); NEUTROPHILS # (AUTO) 4.3 K/uL (1.8-7.7); NEUTROPHILS % (AUTO) 60.5 % (40.0-70.0); PLATELET COUNT (AUTO) 247 K/uL (130-430); RED BLOOD CELL COUNT(AUTO) 4.56 MIL/uL (4.2-6.2); RED CELL DISTRIBUTION WIDTH 16.5 % (9.0-15.0)
[2016-12-27 07:47] LABS: WHITE BLOOD COUNT (AUTO) 6.9 K/uL (4.8-10.8)
[2016-12-27 08:16] VITALS: BP_SYST 120
[2016-12-27 08:20] LABS: CALCIUM 9.3 mg/dL (8.4-11.0); CREATININE 1.09 mg/dL (0.55-1.30); PHOSPHORUS 4.6 mg/dL (2.7-4.5); POTASSIUM 4.1 mmol/L (3.5-5.1)
[2016-12-27] MEDS: DULoxetine HCL 30 MG CAPSULE.DR (CYMBALTA) PO SCH (08:48)
[2016-12-27] MEDS: SUCRALFATE 1 GM TABLET PO SCH ×3 (08:48→17:11)
[2016-12-27] MEDS: FERROUS SULFATE 325 MG TABLET.DR PO SCH (08:48)
[2016-12-27] MEDS: DOCUSATE SODIUM 100 MG CAPSULE PO SCH (08:48)
[2016-12-27] MEDS: LISINOPRIL 5 MG TABLET PO SCH (08:49)
[2016-12-27] MEDS: ASCORBIC ACID 500 MG TABLET PO SCH (08:50)
[2016-12-27] MEDS: MULTIVITAMINS TAB 1 TABLET PO SCH (08:50)
[2016-12-27] MEDS: ATORVASTATIN 20 MG TABLET PO SCH (08:50)
[2016-12-27] MEDS: TOPIRAMATE 100 MG TABLET(Topamax) PO SCH ×2 (08:50→15:00)
[2016-12-27] MEDS: APIXABAN 2.5 MG TABLET PO SCH (08:50)
[2016-12-27] MEDS: PANTOPRAZOLE SODIUM 40 MG/VIAL (PROTONIX) IVP SCH (08:50)
[2016-12-27] MEDS: METOPROLOL TARTRATE 25 MG TABLET PO SCH (08:52)
[2016-12-27] MEDS: MORPHINE SULFATE 100 MG TABLET.SA PO SCH (09:20)
[2016-12-27] MEDS ORDERED: APIX5TAB PO (10:27)
[2016-12-27 12:30] VITALS: BP_SYST 121
[2016-12-27] MEDS: HYDROmorphone 1 MG INJ. 1 MG/ML AMPUL IVP PRN (12:31)
[2016-12-27 14:47] VITALS: BP_SYST 126
[2016-12-27 16:04] VITALS: BP_SYST 126
[2016-12-28 03:12] LABS: T4 (THYROXINE) 7.2 ug/dL (4.5-12.0)
[2016-12-29 10:04] LABS: HEMOGLOBIN A1C 8.1 % (4.8-5.6)
== END 2016-12-27 19:05 | disposition home or self-care (01) | DRG 243 ==
LOC: SED 11:32 → STU 13:47 → SMU 12-26 15:47
PROVIDERS: ADMIT Family Medicine; ATTEND Family Medicine
DX: K21.9 Gastro-esophageal reflux disease without esophagitis (principal); E11.40 Type 2 diabetes mellitus with diabetic neuropathy, unspecified; I82.403 Acute embolism and thrombosis of unspecified deep veins of lower extremity, bilateral; E27.8 Other specified disorders of adrenal gland; I11.0 Hypertensive heart disease with heart failure; I50.9 Heart failure, unspecified; M94.0 Chondrocostal junction syndrome [Tietze]; G89.4 Chronic pain syndrome; L08.9 Local infection of the skin and subcutaneous tissue, unspecified; G43.909 Migraine, unspecified, not intractable, without status migrainosus; J45.909 Unspecified asthma, uncomplicated; B95.62 Methicillin resistant Staphylococcus aureus infection as the cause of diseases classified elsewhere; F41.9 Anxiety disorder, unspecified; E87.6 Hypokalemia; E78.5 Hyperlipidemia, unspecified; E66.9 Obesity, unspecified; Z85.41 Personal history of malignant neoplasm of cervix uteri; Z68.42 Body mass index [BMI] 45.0-49.9, adult; Z88.5 Allergy status to narcotic agent; Z88.6 Allergy status to analgesic agent; Z88.8 Allergy status to other drugs, medicaments and biological substances; Z79.899 Other long term (current) drug therapy
CPT/HCPCS: 36415; 71010; 80048; 80053; 80061; 81000-TC; 82150-TC; 82962; 83036; 83690-TC; 83735-TC; 83880; 84100-TC; 84436; 84439; 84443-TC; 84479; 84484; 85025; 85610-TC; 93005; 93306; 93923; 93970; 96374; 99285; C9113; J1170; J1200; J1815; J2270; J2405; J3370; J7050

== ENCOUNTER 2017-02-16 19:22 | Emergency (ER) | payer MEDICAID ==
[~2017-02-16] VITALS: Ht 167.6 cm; Wt 128.8 kg
[~2017-02-16 19:22] MED LIST changes: +APIX5TAB PO; +[UNRECOGNIZED DRUG - CODE] IV
[2017-02-16 19:27] VITALS: BP_SYST 120
[2017-02-16] MEDS ORDERED: fentaNYL CITRATE/PF 100 MCG/2 ML AMP IM ONE (20:15)
[2017-02-16 20:38] LABS: BASOPHILS % (AUTO) 0.5 % (0.0-2.0); EOSINOPHILS # (AUTO) 0.2 K/uL (0.0-0.4); HEMATOCRIT 38.2 % (36-48); HEMOGLOBIN 12.4 g/dL (12.0-16.0); LYMPHOCYTES # (AUTO) 1.8 K/uL (1.0-5.5); LYMPHOCYTES % (AUTO) 22.5 % (20.5-51.5); MEAN CORPUSCULAR HEMOGLOBIN 25 pg (27-31); MEAN CORPUSCULAR HGB CONC 33 % (32-36); MEAN CORPUSCULAR VOLUME 77 fL (79.0-98.0); MONOCYTES # (AUTO) 0.3 K/uL (0.0-1.0); MONOCYTES % (AUTO) 3.6 % (1.7-9.3); NEUTROPHILS # (AUTO) 5.7 K/uL (1.8-7.7); NEUTROPHILS % (AUTO) 71.4 % (40.0-70.0); PLATELET COUNT (AUTO) 276 K/uL (130-430); RED BLOOD CELL COUNT(AUTO) 4.97 MIL/uL (4.2-6.2); RED CELL DISTRIBUTION WIDTH 15.7 % (9.0-15.0)
[2017-02-16] MEDS ORDERED: ONDANSETRON HCL 4 MG/2 ML VIAL IVP ONE (20:45)
[2017-02-16 20:52] LABS: CALCIUM 9.7 mg/dL (8.4-11.0); CREATININE 0.92 mg/dL (0.55-1.30); POTASSIUM 3.8 mmol/L (3.5-5.1)
[2017-02-16 20:56] LABS: PROTHROMBIN TIME 10.4 SECS (9.5-12.5)
[2017-02-16 21:05] LABS: ALBUMIN 3.5 g/dL (3.4-4.8); TOTAL BILIRUBIN 0.3 mg/dL (0.0-1.0)
[2017-02-16] MEDS ORDERED: NACL 0.9% 1,000 ML IV ONE (21:30)
[2017-02-16] MEDS ORDERED: INSULIN REGULAR, HUMAN 10 UNITS/0.1 ML INJ IVP ONE (21:45)
[2017-02-16 22:10] VITALS: BP_SYST 116
== END 2017-02-16 22:10 | disposition home or self-care (01) ==
LOC: SED 19:22
DX: G43.909 Migraine, unspecified, not intractable, without status migrainosus (principal); J45.901 Unspecified asthma with (acute) exacerbation; L97.919 Non-pressure chronic ulcer of unspecified part of right lower leg with unspecified severity; B95.62 Methicillin resistant Staphylococcus aureus infection as the cause of diseases classified elsewhere; I11.0 Hypertensive heart disease with heart failure; I50.9 Heart failure, unspecified; E11.65 Type 2 diabetes mellitus with hyperglycemia; Z88.6 Allergy status to analgesic agent; Z88.5 Allergy status to narcotic agent; Z88.1 Allergy status to other antibiotic agents; Z88.8 Allergy status to other drugs, medicaments and biological substances; Z79.899 Other long term (current) drug therapy
CPT/HCPCS: 36415; 80053; 85025; 85610; 85730; 93971; 96372; 96374; 96375; 99285; J1815; J2405; J3010

== ENCOUNTER 2017-11-15 15:18 | Inpatient (IN) | payer MEDICAID ==
[~2017-11-15] VITALS: Ht 167.6 cm; Wt 110.7 kg
[2017-11-15 15:46] VITALS: BP_SYST 158
--- NOTE | 2017-11-15 15:55 | NUR ---
Patient triaged and placed in waiting room. VSS and patient appears in no acute distress at this time. Accompanied by SON, awaiting available bed, and MD notified of need for MSE.
--- NOTE | 2017-11-15 18:04 | NUR ---
Pt wheeled to bed 3
--- NOTE | 2017-11-15 19:10 | NUR ---
Discoloration noted to patient's fifth digit of the right foot. Redness noted to patient's bilateral lower legs.
--- NOTE | 2017-11-15 19:10 | NUR ---
Assumed care of the patient at this time. Patient AAOx4, uses a wheelchair for mobility. Patient states having a main complaint of right leg pain which radiates down to lower right foot. Patient states pain scale 8/10 at this time. Patient is able to ambulate with assistance. Patient denies mechanical injury. Patient denies any other complaints. Elva Boyd is a 46-year-old female with a past medical history of DVT, hypertension, asthma, and diabetes who complains of swelling to her bilateral lower extremities for the past 2 weeks. She also reports pain to her right foot 5th digit with swelling and discoloration. The patient states that she has had multiple recent falls over the past 2 weeks. No alleviating factors. Otherwise, no fever, chills, nausea, vomiting, shortness of breath, or chest pain.
[2017-11-15] MEDS ORDERED: MORPHINE 4 MG/ML INJ. SYRINGE IVP ONE (19:15)
[2017-11-15] MEDS ORDERED: CEFAZOLIN 1 GM IVPB PREMIX 50 ML IV ONE (19:15)
[2017-11-15] MEDS ORDERED: VANCOMYCIN HCL 1,000 MG in NS 250 ML IV ONE (19:15)
[2017-11-15] MEDS ORDERED: DIPHENHYDRAMINE INJ 50 MG/ML VIAL IVP ONE (19:15)
--- NOTE | 2017-11-15 19:43 | NUR ---
ER Dr. Simmons at bedside examining patient.
--- NOTE | 2017-11-15 20:00 | NUR ---
Administration of IV medications delayed due to multiple failed IV attempts. Will administer medications when IV access is completed.
--- NOTE | 2017-11-15 20:04 | NUR ---
Patient is calmly resting in ER bed, no signs of distress noted.
--- NOTE | 2017-11-15 20:30 | NUR ---
# 22 gauge angiocath placed to left upper arm. Use of asceptic technique. Opsite placed over site. Blood return noted. Flushed with 10 cc of normal saline. No evidence of infiltration noted. Patient tolerated well.
[2017-11-15 21:14] LABS: BILIRUBIN,URINE NEGATIVE (NEGATIVE); BLOOD, URINE NEGATIVE (NEGATIVE); CLARITY/URINE CLEAR (CLEAR); COLOR,URINE YELLOW (YELLOW); GLUCOSE,URINE NEGATIVE (NEGATIVE); KETONES,URINE NEGATIVE (NEGATIVE); LEUKOCYTE ESTERASE ,URINE TRACE (NEGATIVE); NITRITE, URINE NEGATIVE (NEGATIVE); PROTEIN URINE NEGATIVE (NEGATIVE); UROBILINOGEN,URINE 0.2 (0.2-1.0)
[2017-11-15 21:32] LABS: BACTERIA,URINE FEW /HPF (None Seen); RBC,URINE NONE SEEN /HPF (0-3)
[2017-11-15 21:33] LABS: MUCUS,URINE None Seen /LPF (None Seen)
[2017-11-15 21:33] LABS: HEMOGLOBIN 9.3 g/dL (12.0-16.0); MONOCYTES # (AUTO) 0.3 K/uL (0.0-1.0); NEUTROPHILS # (AUTO) 4.2 K/uL (1.8-7.7)
--- NOTE | 2017-11-15 21:33 | NUR ---
Administration of IV antibiotics was delayed due to waiting for blood culture draw to be completed by lab.
[2017-11-15] MEDS ORDERED: VANCOMYCIN HCL 1000 MG/VIAL IV ONE (21:35)
[2017-11-15 21:44] LABS: BASOPHILS % (AUTO) 0.5 % (0.0-2.0); EOSINOPHILS # (AUTO) 0.3 K/uL (0.0-0.4); EOSINOPHILS % (AUTO) 4.2 % (0.0-4.0); HEMATOCRIT 27.3 % (36-48); LYMPHOCYTES # (AUTO) 1.5 K/uL (1.0-5.5); LYMPHOCYTES % (AUTO) 23.1 % (20.5-51.5); MEAN CORPUSCULAR HEMOGLOBIN 26 pg (27-31); MEAN CORPUSCULAR HGB CONC 34 % (32-36); MEAN CORPUSCULAR VOLUME 77 fL (79.0-98.0); MONOCYTES % (AUTO) 4.5 % (1.7-9.3); NEUTROPHILS % (AUTO) 67.7 % (40.0-70.0); PLATELET COUNT (AUTO) 345 K/uL (130-430); RED BLOOD CELL COUNT(AUTO) 3.54 MIL/uL (4.2-6.2); RED CELL DISTRIBUTION WIDTH 14.6 % (9.0-15.0); WHITE BLOOD COUNT (AUTO) 6.3 K/uL (4.8-10.8)
[2017-11-15 21:57] LABS: CALCIUM 9.3 mg/dL (8.4-11.0); CREATININE 1.05 mg/dL (0.55-1.30); POTASSIUM 3.4 mmol/L (3.5-5.1)
[2017-11-15] MEDS ORDERED: [UNRECOGNIZED DRUG - OTHER] SUBCUT (22:01)
[2017-11-15] MEDS ORDERED: FURO80TA86 PO (22:01)
[2017-11-15] MEDS ORDERED: AMIT100T2 PO (22:01)
[2017-11-15] MEDS ORDERED: MORP100T24 PO (22:01)
[2017-11-15] MEDS ORDERED: TRAZ300T2 PO (22:01)
[2017-11-15] MEDS ORDERED: DULO60CA41 PO (22:01)
[2017-11-15] MEDS ORDERED: LIRA0.6P SQ (22:01)
[2017-11-15] MEDS ORDERED: GABA800T PO (22:01)
--- NOTE | 2017-11-15 22:01 | NUR ---
Medication reconciliation completed with information provided by patient. Any prior medication reconciliation on file was reviewed and corrected.
--- NOTE | 2017-11-15 22:04 | NUR ---
Patient is calmly resting in ER bed, no signs of distress noted. Vital signs were reassessed and are within therapeutic range.
[2017-11-15 22:05] LABS: ALBUMIN 2.8 g/dL (3.4-4.8); TOTAL BILIRUBIN 0.5 mg/dL (0.0-1.0)
[2017-11-15 22:46] LABS: PROTHROMBIN TIME 10.1 SECS (9.5-12.5)
--- NOTE | 2017-11-15 23:19 | NUR ---
End of life care decisions discussed with patient by Dr. Simmons. Opportunity for questions and concerns addressed. Patient's code status is do not resuscitate. ER MD refused to sign the code status sheet and told the patient to speak with the patient's primary care provider to sign a POLST sheet regarding the patient's code status.
--- NOTE | 2017-11-15 23:20 | NUR ---
Patient will be admitted to care of Dr. Goodrich. Admitted to tele unit. Will go to room 116B. Belongings list completed. Summary report printed. Report given to Liliana RED at bedside.
--- NOTE | 2017-11-15 23:22 | NUR ---
ADMISSION NOTE Received patient from ER via marc, received report from NEDA Curry. Patient admitted with diagnosis of left leg diabetic ulcer and cellulitis. Patient oriented to hospital routine, call light, toileting and safety-patient verbalized understanding.
[2017-11-15 23:27] VITALS: BP_SYST 129
--- NOTE | 2017-11-16 00:20 | NUR ---
DR. SHEN CALLED AND TALKED TO DR. SHEN, PATIENT WANTS PAIN MEDICATION. NEW ORDER GIVEN. WILL CONTINUE TO MONITOR.
[2017-11-16] MEDS ORDERED: traMADol HCL HCL 50 MG TABLET (ULTRAM) PO PRN (00:30)
[2017-11-16] MEDS ORDERED: ONDANSETRON HCL 4 MG/2 ML VIAL IVP PRN ×2 (00:30→09:45)
[2017-11-16] MEDS ORDERED: HEPARIN 25,000 UNITS/D5W 250ML 250 ML IV ONE (01:00)
[2017-11-16] MEDS ORDERED: HEPARIN SODIUM,PORCINE 2000 UNITS/0.4 ML BOLUS IVP PRN (03:15)
[2017-11-16] MEDS ORDERED: HEPARIN 25,000 UNITS in 250 ML PREMIX IV PRN (03:15)
[2017-11-16] MEDS ORDERED: HEPARIN SODIUM,PORCINE 3000 UNITS/0.6 ML BOLUS IVP PRN (03:15)
[2017-11-16] MEDS ORDERED: HEPARIN SODIUM,PORCINE 5000 UNITS/ML VIAL SUBCUT SCH (03:45)
[2017-11-16] MEDS ORDERED: HEPARIN SODIUM,PORCINE 5000 UNITS/ML VIAL IV SCH (03:49)
--- NOTE | 2017-11-16 04:02 | NUR ---
HEPARIN DRIP HEPARIN DRIP STARTED ORDERED AT 1800 UNITS/HR, WITNESSED BY JCARLOS RED. PATIENT EDUCATED ON THE INDICATION AND POSSIBLE SIDE EFFECTS OF HEPARIN AND VERBALIZED UNDERSTANDING. WILL CONTINUE TO MONITOR.
[2017-11-16] MEDS ORDERED: PIPERACILLIN/TAZOBACTAM 3.375 GM/VIAL (ZOSYN) IV ONE (05:07)
[2017-11-16] MEDS: PIPERACILLIN/TAZO 3.375 GM in NS 50 ML IV SCH ×2 (05:13→12:03)
[2017-11-16] MEDS: MORPHINE 2 MG/ML INJ. SYRINGE IVP PRN ×4 (05:20→16:50)
--- NOTE | 2017-11-16 06:55 | NUR ---
CLOSING NOTES PATIENT AWAKE, VITALS STABLE, ALL NEEDS ATTENDED TO. SAFETY MEASURES MAINTAINED. CALL LIGHT PLACED WITHIN REACH.
[2017-11-16 08:30] VITALS: BP_SYST 150
--- NOTE | 2017-11-16 08:30 | NUR ---
OPENING NOTE LATE ENTRY DUE TO PT CARE: REPORT IS RECEIVED FROM PIN DRAFTING MACHINE TENDER NURSE AND CARE IS ENDORSED TO MYSELF. PT IS RECEIVED AWAKE, ALERT, AND ORIENTED X4. PT IS ON HEPARIN DRIP INFUSING AT 18ML/HR, NEXT LAB DRAW IS SCHEDULED FOR 1000. MORNING VS SHOW HIGH BP. MORNING MEDICATIONS TO BE GIVEN AT 0900. WHITE BOARD IS UPDATED AND PLAN OF CARE IS DISCUSSED ORDERED BY HER MD. CURRENT NEEDS ARE MET. BED IS AT LOWEST POSITION, CALL LIGHT WITHIN REACH, THREE SIDE RAILS UP, BED ALARM IN ON. WILL CONTINUE TO MONITOR.
--- NOTE | 2017-11-16 09:21 | NUR ---
Nutrition Update Patricio Scale 18 noted. Pt admitted for diabetic ulcer to L leg w/ cellulitis, DVT. Diet: cardiac BMI: 39.4 kg/m2 RD to follow per nutrition care standards.
[2017-11-16 09:30] LABS: PROTHROMBIN TIME 10.2 SECS (9.5-12.5)
[2017-11-16] MEDS ORDERED: DEXTROSE 50% JECT 50 ML DISP.SYRIN IVP PRN (09:30)
[2017-11-16] MEDS ORDERED: NON-FORMULARY MEDICATION (Liraglutide (Victoza 2-Pak) 1.8 MG) SQ SCH (09:30)
[2017-11-16] MEDS ORDERED: MULTIVITS,CA,MINERALS/IRON/FA 1 TABLET PO SCH (09:30)
[2017-11-16] MEDS ORDERED: INSULIN ASPART 100 UNITS/ML, 10 ML VIAL (NovoLOG) SUBCUT PRN (09:30)
[2017-11-16] MEDS: DIPHENHYDRAMINE HCL 25 MG CAPSULE PO PRN ×2 (09:42→16:53)
[2017-11-16] MEDS ORDERED: ZOLPIDEM TARTRATE 5 MG TABLET PO PRN (09:45)
[2017-11-16] MEDS ORDERED: MORPHINE 2 MG/ML INJ. SYRINGE IVP PRN (09:45)
[2017-11-16] MEDS ORDERED: MUPIROCIN 2% TOPICAL OINTMENT 22 GM NS PRN ×2 (09:45→21:00)
[2017-11-16] MEDS ORDERED: POTASSIUM CHLORIDE 20 MEQ TAB.PRT.SR PO PRN (09:45)
[2017-11-16] MEDS ORDERED: MAGNESIUM SULFATE 50 ML IV PRN (09:45)
[2017-11-16] MEDS ORDERED: ACETAMINOPHEN 325 MG TABLET PO PRN (09:45)
[2017-11-16] MEDS ORDERED: LORazepam 2 MG/ML VIAL IVP PRN (09:45)
[2017-11-16] MEDS ORDERED: NACL 0.9% 1,000 ML IV SCH (09:45)
[2017-11-16] MEDS ORDERED: DOCUSATE SODIUM 100 MG CAPSULE PO PRN (09:45)
[2017-11-16 10:06] LABS: CALCIUM 8.6 mg/dL (8.4-11.0); CREATININE 1.2 mg/dL (0.55-1.30); FREE T4 (FREE THYROXINE) 0.6 ng/dL (0.6-1.6); POTASSIUM 3.6 mmol/L (3.5-5.1); THYROID STIMULATING HORMONE 0.73 uIu/mL (0.34-4.82)
[2017-11-16 10:16] LABS: BASOPHILS # (AUTO) 0.1 K/uL (0.0-0.2); BASOPHILS % (AUTO) 1.3 % (0.0-2.0); EOSINOPHILS # (AUTO) 0.3 K/uL (0.0-0.4); EOSINOPHILS % (AUTO) 4.6 % (0.0-4.0); HEMATOCRIT 27.6 % (36-48); HEMOGLOBIN 9.4 g/dL (12.0-16.0); LYMPHOCYTES # (AUTO) 1.2 K/uL (1.0-5.5); LYMPHOCYTES % (AUTO) 20.6 % (20.5-51.5); MEAN CORPUSCULAR HEMOGLOBIN 27 pg (27-31); MEAN CORPUSCULAR HGB CONC 34 % (32-36); MEAN CORPUSCULAR VOLUME 78 fL (79.0-98.0); MONOCYTES # (AUTO) 0.3 K/uL (0.0-1.0); MONOCYTES % (AUTO) 4.5 % (1.7-9.3); NEUTROPHILS # (AUTO) 3.9 K/uL (1.8-7.7); PLATELET COUNT (AUTO) 339 K/uL (130-430); RED BLOOD CELL COUNT(AUTO) 3.54 MIL/uL (4.2-6.2); RED CELL DISTRIBUTION WIDTH 14.9 % (9.0-15.0); WHITE BLOOD COUNT (AUTO) 5.8 K/uL (4.8-10.8)
--- NOTE | 2017-11-16 10:30 | NUR ---
ROUNDS LATE ENTRY DUE TO PT CARE: PT IS AWAKE AND ALERT. NO SIGNS OR SYMPTOMS OF DISTRESS OR SOB NOTED. PT IS COMPLAINING OF PAIN OF 8 OUT OF 10 AND WAS GIVEN PRN MORPHINE IVP. PT ADVISED ON INCREASED RISK FOR FALLS AND THE NEED TO USE CALL LIGHT. PT VERBALIZED UNDERSTANDING. CURRENT NEEDS ARE MET. BED IS AT LOWEST POSITION, CALL LIGHT WITHIN REACH, THREE SIDE RAILS UP, BED ALARM IN ON. WILL CONTINUE TO MONITOR.
[2017-11-16] MEDS ORDERED: ASCORBIC ACID 500 MG TABLET PO ONE (10:45)
[2017-11-16] MEDS ORDERED: FUROSEMIDE 80 MG TABLET PO ONE (10:45)
[2017-11-16] MEDS ORDERED: FERROUS SULFATE 325 MG TABLET.DR PO ONE (10:45)
[2017-11-16] MEDS ORDERED: ATORVASTATIN 20 MG TABLET PO ONE (10:45)
--- NOTE | 2017-11-16 10:52 | NUR ---
CONSULTATION PAGED/CALLED Reason for Consultation: [] DIABETIC FOOT ULCER Person Who was Notified: [] FRANCISCO JAVIER Consulting Physician: [] SAILAJA HOOD RAG ROOM SUPERVISOR FOR STACY RAMIREZ WILL SEE PT TOMORROW Crisis Nurse Specialty: [] PODIATRY SURGERY Ordering Physician: [] DR SHEN
[2017-11-16] MEDS ORDERED: APIXABAN 2.5 MG TABLET PO ONE (11:00)
[2017-11-16] MEDS ORDERED: MORPHINE SULFATE 100 MG TABLET.SA PO ONE (11:00)
[2017-11-16] MEDS ORDERED: LISINOPRIL 5 MG TABLET PO ONE (11:00)
[2017-11-16] MEDS ORDERED: TOPIRAMATE 100 MG TABLET(Topamax) PO ONE (11:15)
[2017-11-16] MEDS ORDERED: MECLIZINE HCL 25 MG TABLET (ANITVERT) PO PRN (11:15)
[2017-11-16] MEDS ORDERED: MULTIVITS,CA,MINERALS/IRON/FA 1 TABLET PO ONE (11:15)
[2017-11-16] MEDS ORDERED: SUCRALFATE 1 GM TABLET PO ONE (11:30)
[2017-11-16] MEDS ORDERED: DEXAMETHASONE SOD PHOSPHATE 4 MG/ML VIAL IM ONE (11:30)
[2017-11-16] MEDS: GABAPENTIN 400 MG CAPSULE PO SCH ×2 (11:38→11:52)
[2017-11-16] MEDS ORDERED: PANTOPRAZOLE SODIUM 40 MG TAB PO ONE (11:45)
[2017-11-16] MEDS ORDERED: CALCIUM CARBONATE/VITAMIN D3 1 TAB TABLET PO ONE (11:45)
[2017-11-16] MEDS ORDERED: VITAMIN B COMPLEX 1 CAP/TAB PO ONE (11:45)
[2017-11-16] MEDS ORDERED: DEXAMETHASONE SOD PHOSPHATE 4 MG/ML VIAL IVP ONE (12:00)
[2017-11-16 12:14] LABS: PROTHROMBIN TIME 9.7 SECS (9.5-12.5)
--- NOTE | 2017-11-16 12:30 | NUR ---
ROUNDS LATE ENTRY DUE TO PT CARE: PT IS AWAKE AND ALERT. NO SIGNS OR SYMPTOMS OF DISTRESS OR SOB NOTED. PT DENIES ANY PAIN. INSULIN COVERAGE WAS GIVEN PER SLIDING. CURRENT NEEDS ARE MET. BED IS AT LOWEST POSITION, CALL LIGHT WITHIN REACH, THREE SIDE RAILS UP, BED ALARM IN ON. WILL CONTINUE TO MONITOR.
[2017-11-16 12:45] VITALS: BP_SYST 132
--- NOTE | 2017-11-16 13:01 | NUR ---
PT OUT OF NETWORK SPOKE TO REAL ESTATE ADMINISTRATIVE ASSISTANT FROM [facility] NAMED MIR, STATED THAT PT IS OUT OF NETWORK. DR SHEN WAS HERE AND MADE AWARE AND CLEARED THE PT TO BE TRANSFER TO CONTRACTED HOSPITAL WHEN BED AVAILABLE.
[2017-11-16] MEDS: SUCRALFATE 1 GM TABLET PO SCH ×2 (13:44→16:51)
[2017-11-16] MEDS ORDERED: FUROSEMIDE 80 MG TABLET PO SCH (14:00)
--- NOTE | 2017-11-16 14:23 | NUR ---
DC Planning: late entry: received call from juaquin Wharton at [facility], requesting pt. transfer to in network. To [facility] under dr. Sykes. Dio made aware that there is order for transfer. Peer to Peer is arranged. Dr. Goodrich will call Dr. Sykes at #[phone]. CM informed pt. about transfer to network. The pt. is agreeable. Dr. Goodrich cancelled Carotid US and can be done at [facility]. PICC line placement in progress and will need xray for placement verification. >> JUAQUIN called back to Munira at [facility], who provided room assignment # 312B at [facility], RN to report # [phone]. Munira also booked a will call with [facility] for transportation. Juaquin will confirm continuous pickling line pickler helper time. >> S/w Silas, dispatcher at [facility] , BLS xfer. # [phone] booked continuous pickling line pickler helper time at 5 pm. NEDA Jimenes made aware.
--- NOTE | 2017-11-16 14:30 | NUR ---
ROUNDS LATE ENTRY DUE TO PT CARE: PT IS AWAKE AND ALERT. PICC LINE WAS PLACED IN RIGHT UPPER ARM AND XRAY WAS ORDERED TO CONFIRM PLACEMENT. NO SIGNS OR SYMPTOMS OF DISTRESS OR SOB NOTED. PT DENIES ANY PAIN. PT IS AWARE THAT SHE IS SCHEDULED TO BE TRANSFERRED TO [facility] THIS EVENING. CURRENT NEEDS ARE MET. BED IS AT LOWEST POSITION, CALL LIGHT WITHIN REACH, THREE SIDE RAILS UP, BED ALARM IN ON. WILL CONTINUE TO MONITOR.
[2017-11-16] MEDS ORDERED: TOPIRAMATE 100 MG TABLET(Topamax) PO SCH (15:00)
[2017-11-16 16:20] VITALS: BP_SYST 132
[2017-11-16 16:40] VITALS: BP_SYST 123
--- NOTE | 2017-11-16 17:21 | NUR ---
PT TRANSFERRED Report given to YAMILA at [facility]. Transfer packet with Transfer Orders and Medication Reconciliation form given to EMT with report. Exitcare provided. [facility] ID band removed, replaced with ID band with pt's name and . IV catheter removed, intact and dressing applied, no active bleeding. All belongings sent with patient. Patient left floor via gurney escorted by EMT in no distress.
--- NOTE | 2017-11-16 17:43 | NUR ---
PODIATRY SURGERY CONSULT DR SANTILLAN WASH TANK TENDER FOR DR LEY WAS CALLED RE: INFORM THAT PT TRANSFERED TO CONTRACTED HOSPITAL.
[2017-11-16] MEDS ORDERED: LORazepam 1 MG TABLET PO SCH (21:00)
[2017-11-16] MEDS ORDERED: [UNRECOGNIZED DRUG - OTHER] SUBCUT SCH (21:00)
[2017-11-16] MEDS ORDERED: NON-FORMULARY MEDICATION (Quetiapine Fumarate (Seroquel Xr) 50 MG) PO SCH (21:00)
[2017-11-16] MEDS ORDERED: FERROUS SULFATE 325 MG TABLET.DR PO SCH (21:00)
[2017-11-16] MEDS ORDERED: APIXABAN 2.5 MG TABLET PO SCH (21:00)
[2017-11-16] MEDS ORDERED: DULoxetine HCL 30 MG CAPSULE.DR (CYMBALTA) PO SCH (21:00)
[2017-11-16] MEDS ORDERED: traZODone HCL 50 MG TABLET (DESYREL) PO SCH (21:00)
[2017-11-16] MEDS ORDERED: AMITRIPTYLINE HCL 25 MG TABLET (ELAVIL) PO SCH (21:00)
[2017-11-16] MEDS ORDERED: MORPHINE SULFATE 100 MG TABLET.SA PO SCH (21:00)
[2017-11-17] MEDS ORDERED: LISINOPRIL 5 MG TABLET PO SCH (09:00)
[2017-11-17] MEDS ORDERED: CALCIUM CARBONATE/VITAMIN D3 1 TAB TABLET PO SCH (09:00)
[2017-11-17] MEDS ORDERED: ATORVASTATIN 20 MG TABLET PO SCH (09:00)
[2017-11-17] MEDS ORDERED: VITAMIN B COMPLEX 1 CAP/TAB PO SCH (09:00)
[2017-11-17] MEDS ORDERED: PANTOPRAZOLE SODIUM 40 MG TAB PO SCH (09:00)
[2017-11-17] MEDS ORDERED: ASCORBIC ACID 500 MG TABLET PO SCH (09:00)
[2017-11-17 09:05] LABS: HEMOGLOBIN A1C 7.4 % (4.8-5.6)
== END 2017-11-16 17:20 | disposition short-term general hospital (02) | DRG 342 ==
LOC: SED 15:18 → STU 22:51
PROVIDERS: ADMIT Family Medicine; ATTEND Family Medicine
PROC: 02HV33Z Insertion of Infusion Device into Superior Vena Cava, Percutaneous Approach (ICD-10-PCS; principal; 2017-11-16)
PROC: B548ZZA Ultrasonography of Superior Vena Cava, Guidance (ICD-10-PCS; 2017-11-16)
DX: S93.119A Dislocation of interphalangeal joint of unspecified toe(s), initial encounter (principal); E43 Unspecified severe protein-calorie malnutrition; I82.401 Acute embolism and thrombosis of unspecified deep veins of right lower extremity; E11.42 Type 2 diabetes mellitus with diabetic polyneuropathy; I50.9 Heart failure, unspecified; L03.115 Cellulitis of right lower limb; E66.01 Morbid (severe) obesity due to excess calories; I11.0 Hypertensive heart disease with heart failure; S90.121A Contusion of right lesser toe(s) without damage to nail, initial encounter; S09.90XA Unspecified injury of head, initial encounter; G90.8 Other disorders of autonomic nervous system; E11.65 Type 2 diabetes mellitus with hyperglycemia; G43.909 Migraine, unspecified, not intractable, without status migrainosus; F17.210 Nicotine dependence, cigarettes, uncomplicated; F32.9 Major depressive disorder, single episode, unspecified; K21.9 Gastro-esophageal reflux disease without esophagitis; H66.93 Otitis media, unspecified, bilateral; N39.0 Urinary tract infection, site not specified; M54.5 Low back pain; E78.5 Hyperlipidemia, unspecified; L97.919 Non-pressure chronic ulcer of unspecified part of right lower leg with unspecified severity; E11.622 Type 2 diabetes mellitus with other skin ulcer; E87.6 Hypokalemia; D50.9 Iron deficiency anemia, unspecified; L03.116 Cellulitis of left lower limb; G89.29 Other chronic pain; M77.51 Other enthesopathy of right foot and ankle; M47.892 Other spondylosis, cervical region; M47.894 Other spondylosis, thoracic region; M47.896 Other spondylosis, lumbar region; M47.898 Other spondylosis, sacral and sacrococcygeal region; S93.13 Subluxation of interphalangeal joint; J45.909 Unspecified asthma, uncomplicated; W01.0XXA Fall on same level from slipping, tripping and stumbling without subsequent striking against object, initial encounter; Y92.89 Other specified places as the place of occurrence of the external cause; Y93.89 Activity, other specified; Y99.8 Other external cause status; Z68.39 Body mass index [BMI] 39.0-39.9, adult; Z91.018 Allergy to other foods; Z86.74 Personal history of sudden cardiac arrest; Z88.8 Allergy status to other drugs, medicaments and biological substances; Z91.013 Allergy to seafood; Z88.6 Allergy status to analgesic agent; Z86.718 Personal history of other venous thrombosis and embolism; Z91.048 Other nonmedicinal substance allergy status; Z79.899 Other long term (current) drug therapy; Z98.51 Tubal ligation status; Z85.41 Personal history of malignant neoplasm of cervix uteri; Z90.710 Acquired absence of both cervix and uterus; Z86.711 Personal history of pulmonary embolism; Z79.01 Long term (current) use of anticoagulants
CPT/HCPCS: 36415; 70450-TC; 71045; 72072-TC; 72110; 72125-TC; 73521; 80048; 80053; 81000-TC; 82150-TC; 82962; 83036; 83605; 83690-TC; 83880; 84436; 84439; 84443-TC; 84479; 84480; 84484; 85025; 85610-TC; 85730-TC; 87040-TC; 87086; 93005; 93923; 93971; 96365; 96367; 96375; 99285; C1751; J0690; J1100; J1200; J1644; J2270; J2405; J2543; J3370; J7030; J7060; Q0163

== ENCOUNTER 2019-03-31 00:53 | Emergency (ER) | payer MEDICAID ==
[~2019-03-31] VITALS: Ht 167.6 cm; Wt 102.5 kg
[~2019-03-31 00:53] MED LIST changes: -ALBU2.5V7 INH; -FLUT12AE3 IH; -FURO80TA3 PO; +FURO80TA86 PO; -GABA-333 PO; +GABA800T PO; -HYDR4TAB57 PO; -INSU200I4 SQ; -MORP100C17 PO; +MORP100T24 PO; -QUET50TA14 PO; +QUET50TA15 PO; -TOPI50TA20 PO; +TOPI50TA25 PO; -[UNRECOGNIZED DRUG - CODE] IV; +[UNRECOGNIZED DRUG - OTHER] SUBCUT
[2019-03-31 01:44] VITALS: BP_SYST 120
--- NOTE | 2019-03-31 01:52 | NUR ---
Patient triaged and placed in waiting room. VSS and patient appears in no acute distress at this time. Accompanied by son, awaiting available bed, and MD notified of need for MSE.
--- NOTE | 2019-03-31 08:15 | NUR ---
Placed in room 8 . Placed on environmental monitoring specialist, blood pressure machine and pulse oximeter. To gown for exam. Side rails up. Assumed care.
--- NOTE | 2019-03-31 08:17 | NUR ---
Patient arrived via [employer] with son accompanying. Patient states severe chronic back pain. Patient states history of chronic back. Patient reports that she fell out of bed 2 days ago and has had worsening back pain, she does not know how she fell. Patient takes morphine 100 mg twice daily for pain. Educated that the pain medications she takes increase risks for fall, lethargy, and confusion. Patient states that her pain has not been relieved after taking home medications. She denies any loss of bowel or bladder function. She denies any head injury. She denies any chest pain or shortness of breath. Patient states she has a pain management doctor, orthopedic doctor, and PMD. Will continue to follow up and monitor.
--- NOTE | 2019-03-31 08:26 | NUR ---
LIA Rosa at bedside examining patient.
[2019-03-31 09:23] LABS: BASOPHILS % (AUTO) 0.8 % (0.0-2.0); EOSINOPHILS # (AUTO) 0.1 K/uL (0.0-0.4); EOSINOPHILS % (AUTO) 1.4 % (0.0-4.0); HEMOGLOBIN 11.2 g/dL (12.0-16.0); LYMPHOCYTES # (AUTO) 1.1 K/uL (1.0-5.5); LYMPHOCYTES % (AUTO) 19.1 % (20.5-51.5); MEAN CORPUSCULAR HEMOGLOBIN 25 pg (27-31); MEAN CORPUSCULAR HGB CONC 33 % (32-36); MEAN CORPUSCULAR VOLUME 76 fL (79.0-98.0); MONOCYTES # (AUTO) 0.5 K/uL (0.0-1.0); MONOCYTES % (AUTO) 8.2 % (1.7-9.3); NEUTROPHILS % (AUTO) 70.5 % (40.0-70.0); PLATELET COUNT (AUTO) 197 K/uL (130-430); RED BLOOD CELL COUNT(AUTO) 4.48 MIL/uL (4.2-6.2); WHITE BLOOD COUNT (AUTO) 5.7 K/uL (4.8-10.8)
[2019-03-31 09:32] LABS: CALCIUM 8.8 mg/dL (8.4-11.0); CREATININE 0.79 mg/dL (0.55-1.30)
[2019-03-31 09:45] LABS: TOTAL BILIRUBIN 0.5 mg/dL (0.0-1.0)
[2019-03-31] MEDS: fentaNYL CITRATE/PF 100 MCG/2 ML AMP IVP ONE (09:45)
[2019-03-31] MEDS: POTASSIUM CHLORIDE 20 MEQ TAB.PRT.SR PO ONE (11:32)
[2019-03-31] MEDS: KETAMINE 30 MG/3 ML SYRINGE IVP ONE (11:55)
[2019-03-31 12:46] VITALS: BP_SYST 138
--- NOTE | 2019-03-31 12:46 | NUR ---
Patient given written and verbal discharge instructions and verbalizes understanding. ER MD discussed with patient the results and treatment provided. Patient in stable condition. ID arm band removed. IV catheter removed intact and dressing applied, no active bleeding. Rx not given. Patient educated on pain management and to follow up with PMD. Pain Scale 5/10. Opportunity for questions provided and answered. Medication side effect fact sheet provided.
== END 2019-03-31 12:46 | disposition home or self-care (01) ==
LOC: SED 00:53
DX: G89.29 Other chronic pain (principal); M54.5 Low back pain; E87.6 Hypokalemia; I11.0 Hypertensive heart disease with heart failure; I50.9 Heart failure, unspecified; J45.909 Unspecified asthma, uncomplicated; E11.9 Type 2 diabetes mellitus without complications; F17.210 Nicotine dependence, cigarettes, uncomplicated; Z85.41 Personal history of malignant neoplasm of cervix uteri; Z79.899 Other long term (current) drug therapy; Z79.4 Long term (current) use of insulin; Z88.6 Allergy status to analgesic agent; Z88.2 Allergy status to sulfonamides; Z88.8 Allergy status to other drugs, medicaments and biological substances; Z88.1 Allergy status to other antibiotic agents
CPT/HCPCS: 36415; 72131; 80053; 85025; 96374; 96375; 99284

== ENCOUNTER 2021-08-24 22:17 | Emergency (ER) | payer MEDICAID ==
[~2021-08-24] VITALS: Ht 160 cm; Wt 145.1 kg
[~2021-08-24 22:17] MED LIST changes: -CALC-1094 PO; +CALC-1312 PO; -DULO60CA41 PO; +DULO60CA42 PO
[2021-08-24 22:30] VITALS: BP_SYST 122
--- NOTE | 2021-08-24 22:51 | NUR ---
PT COMES TO ER VIA W/C, BROUGHT IN BY SON FOR C/O BLE SWELING/PAIN X 1 MONTH, WORSENING IN THE LAST FEW DAYS. PITTING EDEMA NOTED, PAINFUL TO TOUCH, WEAK PEDAL PULSES PRESENT. PT DENIES ANY FEVERS /CHILLS. DENIES ANY SOB OR CP. HISTORY OF DVTS, ON BLOOD THINNERS. DR PAREDES MADE AWARE. VSS, AFEBRILE.
--- NOTE | 2021-08-24 22:57 | NUR ---
DR PAREDES IN ROOM FOR EXAM
[2021-08-24] MEDS ORDERED: MORPHINE 4 MG INJ. 4 MG/ML VIAL IVP ONE (23:00)
--- NOTE | 2021-08-24 23:17 | NUR ---
MEDICTAED ORDERED, WILL CONT TO MONITOR.
--- NOTE | 2021-08-24 23:20 | NUR ---
URINE SPECIMEN COLLECTED AND WALKED TO LAB
--- NOTE | 2021-08-25 00:25 | NUR ---
US BEING DONE AT THIS TIME, TOLERATING WELL.
--- NOTE | 2021-08-25 01:38 | NUR ---
COVID TEST DONE AND SENT TO LAB.
[2021-08-25 01:55] LABS: HEMOGLOBIN 9.6 g/dL (12.0-16.0)
[2021-08-25 01:58] LABS: CREATININE 1.02 mg/dL (0.55-1.30); POTASSIUM 3.7 mmol/L (3.5-5.1)
[2021-08-25 02:00] LABS: BASOPHILS % (AUTO) 0.6 % (0.0-2.0); EOSINOPHILS # (AUTO) 0.1 K/uL (0.0-0.4); EOSINOPHILS % (AUTO) 1.7 % (0.0-4.0); HEMATOCRIT 29.2 % (36-48); LYMPHOCYTES # (AUTO) 1.1 K/uL (1.0-5.5); LYMPHOCYTES % (AUTO) 18.7 % (20.5-51.5); MEAN CORPUSCULAR HEMOGLOBIN 25 pg (27-31); MEAN CORPUSCULAR HGB CONC 33 % (32-36); MEAN CORPUSCULAR VOLUME 75 fL (79.0-98.0); MONOCYTES # (AUTO) 0.3 K/uL (0.0-1.0); MONOCYTES % (AUTO) 4.8 % (1.7-9.3); NEUTROPHILS # (AUTO) 4.5 K/uL (1.8-7.7); NEUTROPHILS % (AUTO) 74.2 % (40.0-70.0); PLATELET COUNT (AUTO) 195 K/uL (130-430); RED CELL DISTRIBUTION WIDTH 16.4 % (9.0-15.0)
[2021-08-25 02:01] LABS: INR 1.2 (0.8-1.2); PROTHROMBIN TIME 11.6 SECS (9.5-12.5)
[2021-08-25 02:03] LABS: ALBUMIN 2.9 g/dL (3.4-4.8); TOTAL BILIRUBIN 0.1 mg/dL (0.0-1.0)
[2021-08-25] MEDS ORDERED: NS 500 ML IV ONE (02:30)
[2021-08-25] MEDS ORDERED: MORPHINE 4 MG INJ. 4 MG/ML VIAL IVP ONE (02:30)
--- NOTE | 2021-08-25 02:30 | NUR ---
TRANSFER ACKOWLEDGEMENT PAPERWORK SIGNED BY PATIENT, PRECISION ASSEMBLER INFORMED TO CONTACT AMBULANCE.
--- NOTE | 2021-08-25 03:27 | NUR ---
PT WITH EYES CLOSED, IN NAD. RESP EVEN AND UNLALBORED, ON RA @96%. SON AT BEDSIDE.
--- NOTE | 2021-08-25 03:50 | NUR ---
REPORT GIVEN TO NATALIE RED, UPDATED ON STATUS, LABS AND VITALS. PT STABLE FOR TRANSFER.
[2021-08-25 04:11] LABS: RED BLOOD CELL COUNT(AUTO) 3.91 MIL/uL (4.2-6.2)
--- NOTE | 2021-08-25 06:20 | NUR ---
Patient to be transferred to [facility]. Is being transferred due to higher level of care. Receiving facility has accepting physician and available space. ER physician has signed transfer form. Patient or responsible alliance party has agreed to transfer and signed form. Patient belongings inventoried and will be sent with patient. Copy of nursing notes, lab reports, EKG, Physicians Orders and X-rays to be sent with patient. Report called to at receiving facility. Receiving physician is . ambulance service has been called for transfer.
[2021-08-25 06:21] VITALS: BP_SYST 107
== END 2021-08-25 06:21 | disposition short-term general hospital (02) ==
LOC: SED 22:17
DX: I82.403 Acute embolism and thrombosis of unspecified deep veins of lower extremity, bilateral (principal); J44.9 Chronic obstructive pulmonary disease, unspecified; Z20.822 Contact with and (suspected) exposure to COVID-19
CPT/HCPCS: 36415; 80053; 85025; 85610; 85730; 87426; 93970; 96361; 96374; 99285; J2270; J7030

== ENCOUNTER 2021-09-19 01:39 | Inpatient (IN) | payer MEDICAID ==
[~2021-09-19] VITALS: Ht 167.6 cm; Wt 149.7 kg
[2021-09-19 01:50] VITALS: BP_SYST 140
--- NOTE | 2021-09-19 02:35 | NUR ---
Placed in room 6 . Placed on cardiac monitor technician, blood pressure machine and pulse oximeter. To gown for exam. Side rails up. Report given to Radha ERD.
--- NOTE | 2021-09-19 02:50 | NUR ---
ER at bedside examining patient.
--- NOTE | 2021-09-19 02:51 | NUR ---
50 YR OLD AOX4 AMBULTORY WITH COMPLAINT OF LOWER EXTREMITY SWELLING FOR MORE THAN A WEEK. PT ARRIVED WITH A PICC LINE IN RIGHT UPPER EXTREMITY APPEARS DIRTY WITH A DARK DRESSING. PT NOTED TO HAVE POOR HYGEINE, WEEPING OF SEROANGUINUS FLUID FROM CHIRINOS OF RIGHT LEG. PT REPORTS HAVING 15 BACK SURGERIES, DM, ASTHMA, COPD, DVTS, AND MIGRAINES. MD BOWMAN AT THE BEDSIDE. WILL MONITOR NEEDED
[2021-09-19 04:03] LABS: BASOPHILS % (AUTO) 0.7 % (0.0-2.0); EOSINOPHILS # (AUTO) 0.1 K/uL (0.0-0.4); EOSINOPHILS % (AUTO) 2.1 % (0.0-4.0); HEMATOCRIT 31.1 % (36-48); HEMOGLOBIN 10.1 g/dL (12.0-16.0); LYMPHOCYTES % (AUTO) 22.6 % (20.5-51.5); MEAN CORPUSCULAR HEMOGLOBIN 24 pg (27-31); MEAN CORPUSCULAR HGB CONC 33 % (32-36); MEAN CORPUSCULAR VOLUME 75 fL (79.0-98.0); MONOCYTES # (AUTO) 0.3 K/uL (0.0-1.0); MONOCYTES % (AUTO) 5.8 % (1.7-9.3); NEUTROPHILS # (AUTO) 3.1 K/uL (1.8-7.7); NEUTROPHILS % (AUTO) 68.8 % (40.0-70.0); PLATELET COUNT (AUTO) 238 K/uL (130-430); RED BLOOD CELL COUNT(AUTO) 4.15 MIL/uL (4.2-6.2); RED CELL DISTRIBUTION WIDTH 16.7 % (9.0-15.0); WHITE BLOOD COUNT (AUTO) 4.5 K/uL (4.8-10.8)
[2021-09-19 04:25] LABS: PROTHROMBIN TIME 9.9 SECS (9.5-12.5)
[2021-09-19 04:52] LABS: CALCIUM 8.4 mg/dL (8.4-11.0); CREATININE 1.19 mg/dL (0.55-1.30); POTASSIUM 4.1 mmol/L (3.5-5.1)
[2021-09-19 05:00] LABS: ALBUMIN 3.1 g/dL (3.4-4.8); TOTAL BILIRUBIN 0.2 mg/dL (0.0-1.0)
[2021-09-19] MEDS ORDERED: VANCOMYCIN HCL 1,000 MG in NS 250 ML IV ONE (05:00)
[2021-09-19] MEDS ORDERED: NACL 0.9% 1,000 ML IV ONE (05:00)
--- NOTE | 2021-09-19 05:00 | NUR ---
critical lab Received incoming call from lab, regarding value for glucose 567mg/dL. Dr. Fontaine was notified.
--- NOTE | 2021-09-19 05:29 | NUR ---
Verbal authorization from [employer] to admit s/w Moustapha, Missile And Missile Checkout Technician [phone] Upon request, face sheet and critical labs were faxed. Received incoming call from Moustapha notifying there is authorization to admit, "verbal authorization" given.
[2021-09-19] MEDS ORDERED: VANCOMYCIN HCL 1000 MG/VIAL IV ONE (06:16)
--- NOTE | 2021-09-19 06:54 | NUR ---
Admit bed requested Patient will be admitted to care of . Admitted to MED SURG unit. Diagnosis DIABETES,CELLULITIS Inpatient (Yes or No) YES Observation (Yes or No) NO Orientation concerns or request close to nursing station (Yes or No) NO Covid Status PENDING On vent or bipap NO Isolation requirements NO Needs a sitter NO From Home (Yes or if No enter name of facility) YES Requires Dialysis (Yes or No) NO Med Rec Completed (Yes of No) PENDING
--- NOTE | 2021-09-19 07:11 | NUR ---
report given to Vicenta RED, pt pending admission. all questions answered
--- NOTE | 2021-09-19 07:17 | NUR ---
EKG DONE AT BEDSIDE, RESULT HANDED TO DR JOHNSTON.
--- NOTE | 2021-09-19 07:30 | NUR ---
URINE SAMPLE TAKEN AND SENT TO LAB FOR TEST
[2021-09-19] MEDS ORDERED: IBUPROFEN 800 MG TABLET PO ONE (07:45)
[2021-09-19 07:48] LABS: BILIRUBIN,URINE NEGATIVE (NEGATIVE); BLOOD, URINE NEGATIVE (NEGATIVE); CLARITY/URINE SL CLOUDY (CLEAR); COLOR,URINE YELLOW (YELLOW); GLUCOSE,URINE 3+ (NEGATIVE); KETONES,URINE NEGATIVE (NEGATIVE); LEUKOCYTE ESTERASE ,URINE TRACE (NEGATIVE); NITRITE, URINE POSITIVE (NEGATIVE); PROTEIN URINE NEGATIVE (NEGATIVE); UROBILINOGEN,URINE 0.2 (0.2-1.0)
[2021-09-19] MEDS ORDERED: HYDROcodone/ACETAMIN 10-325 MG TAB PO ONE (08:15)
[2021-09-19 08:25] LABS: BACTERIA,URINE MODERATE /HPF (None Seen); MUCUS,URINE 1+ /LPF (None Seen); RBC,URINE 0-3 /HPF (0-3)
--- NOTE | 2021-09-19 09:30 | NUR ---
COVID SWAB DONE AND TAKEN TO LAB
--- NOTE | 2021-09-19 10:15 | NUR ---
TO MST REPORT GIVEN TO NEDA CHILDRESS. ALL PERSONAL BELONGINGS WITH PT.
[2021-09-19 10:20] VITALS: BP_SYST 129
--- NOTE | 2021-09-19 11:03 | NUR ---
CONSULTATION: REASON FOR CONSULT: CELLULITIS CONSULTING PHYSICIAN: Rosi GARCIA ORDERED BY: Gerald MARTINEZ SPOKE WITH NATY FROM [employer] [phone]
[2021-09-19 12:00] VITALS: BP_SYST 129
[2021-09-19] MEDS ORDERED: ONDANSETRON HCL 4 MG/2 ML VIAL IVP PRN (13:00)
[2021-09-19] MEDS ORDERED: ACETAMINOPHEN 325 MG TABLET PO PRN (13:00)
[2021-09-19] MEDS ORDERED: NON-FORMULARY MEDICATION (Liraglutide (Victoza 2-Pak) 1.8 MG) SQ SCH (13:00)
[2021-09-19] MEDS ORDERED: LORazepam 2 MG/ML VIAL IVP PRN (13:00)
[2021-09-19] MEDS ORDERED: TOPIRAMATE 100 MG TABLET(Topamax) PO PRN (13:00)
[2021-09-19] MEDS: NORMAL SALINE 5 ML DISP.SYRIN IVF SCH ×4 (14:00→22:53)
[2021-09-19 16:00] VITALS: BP_SYST 130
[2021-09-19] MEDS: SUCRALFATE 1 GM TABLET PO SCH ×3 (17:00→21:20)
[2021-09-19] MEDS ORDERED: LORazepam 1 MG TABLET PO PRN (17:15)
[2021-09-19] MEDS: FUROSEMIDE 80 MG TABLET PO SCH ×2 (18:36→23:13)
[2021-09-19] MEDS: GABAPENTIN 400 MG CAPSULE PO SCH ×2 (18:36→23:18)
[2021-09-19] MEDS: VANCOMYCIN HCL 1,000 MG in NS 250 ML IV SCH (18:51)
[2021-09-19] MEDS: INSULIN REGULAR, HUMAN 100 UNITS/ML, 10 ML VIAL (humuLIN R) SUBCUT PRN ×2 (18:54→21:42)
[2021-09-19 20:00] VITALS: BP_SYST 101
[2021-09-19] MEDS ORDERED: [UNRECOGNIZED DRUG - OTHER] SUBCUT SCH (21:00)
[2021-09-19] MEDS ORDERED: LORazepam 1 MG TABLET PO SCH (21:00)
[2021-09-19] MEDS: DULoxetine HCL 30 MG CAPSULE.DR (CYMBALTA) PO SCH (21:20)
[2021-09-19] MEDS: ATORVASTATIN 20 MG TABLET PO SCH (21:20)
[2021-09-19] MEDS: traZODone HCL 50 MG TABLET (DESYREL) PO SCH (21:20)
[2021-09-19] MEDS: FERROUS SULFATE 325 MG TABLET.DR PO SCH (21:20)
[2021-09-19] MEDS: QUEtiapine FUMARATE 25 MG TABLET PO SCH (21:20)
[2021-09-19] MEDS: MORPHINE SULFATE 30 MG TABLET.SA PO SCH (21:21)
[2021-09-19] MEDS: APIXABAN 2.5 MG TABLET PO SCH (21:22)
[2021-09-19] MEDS: AMMONIUM LACTATE 226 GM LOTION TP SCH (21:44)
--- NOTE | 2021-09-19 21:50 | NUR ---
physician communication Dr. Ramirez responded to page and gave orders that we are able to use the PICC line that the patient had placed before hospital admission. PICC was flush with no noted resistance and no drainage at the site. blood return was also noted.
[2021-09-19] MEDS: AMITRIPTYLINE HCL 25 MG TABLET (ELAVIL) PO SCH (22:00)
[2021-09-19] MEDS ORDERED: AMITRIPTYLINE HCL 25 MG TABLET (ELAVIL) ONE (23:14)
--- NOTE | 2021-09-20 00:25 | NUR ---
ASSUME PT CARE AT THIS TIME,PT AWAKE ON HER LAPTOP, NO S/S OF DISTRESS NOTED, BREATHING EVEN AND UNLABORED, WILL CONTINUE TO MONITOR.
[2021-09-20 01:31] VITALS: BP_SYST 115
--- NOTE | 2021-09-20 04:30 | NUR ---
ROUNDED ON PT, PT RESTING COMFORTABLY IN BED, NO DISTRESS OR DISCOMFORT NOTED, BREATHING EVEN AND UNLABORED, REPOSITIONED PER COMFORT, ALL FALL PROTOCOLS MAINTAINED, WILL CONTINUE TO MONITOR.
[2021-09-20] MEDS: INSULIN REGULAR, HUMAN 100 UNITS/ML, 10 ML VIAL (humuLIN R) SUBCUT PRN ×4 (06:06→22:51)
[2021-09-20] MEDS: VANCOMYCIN HCL 1,000 MG in NS 250 ML IV SCH ×2 (06:06→17:07)
[2021-09-20] MEDS: NORMAL SALINE 5 ML DISP.SYRIN IVF SCH ×6 (06:07→22:49)
[2021-09-20] MEDS: GABAPENTIN 400 MG CAPSULE PO SCH ×3 (06:23→17:11)
[2021-09-20] MEDS: FUROSEMIDE 80 MG TABLET PO SCH ×3 (06:23→22:32)
[2021-09-20 06:50] LABS: BASOPHILS % (AUTO) 0.7 % (0.0-2.0); EOSINOPHILS # (AUTO) 0.1 K/uL (0.0-0.4); EOSINOPHILS % (AUTO) 2.9 % (0.0-4.0); HEMATOCRIT 29.7 % (36-48); LYMPHOCYTES # (AUTO) 1.1 K/uL (1.0-5.5); LYMPHOCYTES % (AUTO) 23.9 % (20.5-51.5); MEAN CORPUSCULAR HEMOGLOBIN 25 pg (27-31); MEAN CORPUSCULAR HGB CONC 34 % (32-36); MEAN CORPUSCULAR VOLUME 74 fL (79.0-98.0); MONOCYTES # (AUTO) 0.3 K/uL (0.0-1.0); MONOCYTES % (AUTO) 7.3 % (1.7-9.3); NEUTROPHILS # (AUTO) 2.9 K/uL (1.8-7.7); NEUTROPHILS % (AUTO) 65.2 % (40.0-70.0); PLATELET COUNT (AUTO) 229 K/uL (130-430); RED BLOOD CELL COUNT(AUTO) 4.04 MIL/uL (4.2-6.2); RED CELL DISTRIBUTION WIDTH 16.9 % (9.0-15.0); WHITE BLOOD COUNT (AUTO) 4.4 K/uL (4.8-10.8)
--- NOTE | 2021-09-20 07:29 | NUR ---
SHIFT REPORT REPORT GIVEN TO SOFI RED FOR CONTINUITY OF CARE, ALL QUESTIONS WERE ANSWERED AND RN VERBALIZED UNDERSTANDING.
[2021-09-20 07:45] LABS: POTASSIUM 3.5 mmol/L (3.5-5.1)
[2021-09-20 08:22] LABS: CALCIUM 7.8 mg/dL (8.4-11.0); CREATININE 0.99 mg/dL (0.55-1.30); PHOSPHORUS 3.4 mg/dL (2.7-4.5); TOTAL BILIRUBIN 0.3 mg/dL (0.0-1.0)
[2021-09-20 08:30] VITALS: BP_SYST 114
[2021-09-20] MEDS: AMMONIUM LACTATE 226 GM LOTION TP SCH (09:00)
[2021-09-20] MEDS: SUCRALFATE 1 GM TABLET PO SCH ×4 (09:14→22:31)
[2021-09-20] MEDS: CALCIUM 500 MG/TAB PO SCH (09:14)
[2021-09-20] MEDS: FERROUS SULFATE 325 MG TABLET.DR PO SCH ×2 (09:14→22:31)
[2021-09-20] MEDS: VITAMIN B COMPLEX 1 CAP/TAB PO SCH (09:14)
[2021-09-20] MEDS: PANTOPRAZOLE SODIUM 40 MG TAB PO SCH (09:14)
[2021-09-20] MEDS: ASCORBIC ACID 500 MG TABLET PO SCH (09:16)
[2021-09-20] MEDS: APIXABAN 2.5 MG TABLET PO SCH ×2 (09:16→22:34)
[2021-09-20] MEDS: MULTIVITAMINS TAB 1 TABLET PO SCH (09:16)
[2021-09-20] MEDS: MORPHINE SULFATE 30 MG TABLET.SA PO SCH ×2 (09:16→22:30)
[2021-09-20] MEDS ORDERED: NALOXONE HCL 0.4 MG/ML AMP (NARCAN) IVP PRN ×3 (10:45)
[2021-09-20 12:17] VITALS: BP_SYST 164
[2021-09-20] MEDS: MORPHINE SULFATE 10 MG/ML VIAL IVP PRN (12:23)
[2021-09-20 16:30] VITALS: BP_SYST 112
[2021-09-20] MEDS: HYDROmorphone 2 MG TAB PO PRN (17:12)
[2021-09-20 20:00] VITALS: BP_SYST 130
[2021-09-20] MEDS: ATORVASTATIN 20 MG TABLET PO SCH (22:31)
[2021-09-20] MEDS: QUEtiapine FUMARATE 25 MG TABLET PO SCH (22:32)
[2021-09-20] MEDS: traZODone HCL 50 MG TABLET (DESYREL) PO SCH (22:32)
[2021-09-20] MEDS: DULoxetine HCL 30 MG CAPSULE.DR (CYMBALTA) PO SCH (22:33)
[2021-09-20] MEDS: AMITRIPTYLINE HCL 25 MG TABLET (ELAVIL) PO SCH (22:33)
[2021-09-20] MEDS: metFORMIN HCL 500 MG TABLET PO SCH (22:37)
[2021-09-21] VITALS: BP_SYST 127
[2021-09-21] MEDS: GABAPENTIN 400 MG CAPSULE PO SCH ×5 (01:08→23:32)
[2021-09-21] MEDS: HYDROmorphone 2 MG TAB PO PRN ×2 (01:30→15:39)
[2021-09-21] MEDS: NORMAL SALINE 5 ML DISP.SYRIN IVF SCH ×4 (06:42→22:00)
[2021-09-21] MEDS: FUROSEMIDE 80 MG TABLET PO SCH ×3 (06:43→23:24)
[2021-09-21] MEDS: INSULIN REGULAR, HUMAN 100 UNITS/ML, 10 ML VIAL (humuLIN R) SUBCUT PRN ×3 (06:45→18:15)
[2021-09-21 06:47] LABS: BASOPHILS % (AUTO) 0.8 % (0.0-2.0); EOSINOPHILS # (AUTO) 0.1 K/uL (0.0-0.4); HEMOGLOBIN 9.6 g/dL (12.0-16.0); LYMPHOCYTES # (AUTO) 1.1 K/uL (1.0-5.5); LYMPHOCYTES % (AUTO) 29.3 % (20.5-51.5); MEAN CORPUSCULAR HEMOGLOBIN 24 pg (27-31); MEAN CORPUSCULAR HGB CONC 33 % (32-36); MEAN CORPUSCULAR VOLUME 73 fL (79.0-98.0); MONOCYTES # (AUTO) 0.3 K/uL (0.0-1.0); MONOCYTES % (AUTO) 7.5 % (1.7-9.3); NEUTROPHILS # (AUTO) 2.2 K/uL (1.8-7.7); NEUTROPHILS % (AUTO) 59.4 % (40.0-70.0); PLATELET COUNT (AUTO) 228 K/uL (130-430); RED BLOOD CELL COUNT(AUTO) 3.95 MIL/uL (4.2-6.2); RED CELL DISTRIBUTION WIDTH 16.6 % (9.0-15.0); WHITE BLOOD COUNT (AUTO) 3.6 K/uL (4.8-10.8)
[2021-09-21] MEDS: VANCOMYCIN HCL 1,000 MG in NS 250 ML IV SCH ×2 (06:57→18:28)
[2021-09-21 07:21] LABS: C-REACTIVE PROTEIN QUANT 5.9 mg/dL (0-0.5); CALCIUM 7.7 mg/dL (8.4-11.0); CREATININE 1.03 mg/dL (0.55-1.30); POTASSIUM 3.2 mmol/L (3.5-5.1)
[2021-09-21 08:00] VITALS: BP_SYST 149
--- NOTE | 2021-09-21 08:00 | NUR ---
OPENING NOTE Patient in bed, alert and oriented x4. Patient complaining of generalized pain, 10/10. Prescribed pain medications given. Patient able to move to the commode with two person assist. Heels are elevated, patient supported with pillows. PICC is intact and running prescribed fluids. All needs met at this time, and safety checks made. Will continue to monitor.
[2021-09-21] MEDS: AMMONIUM LACTATE 226 GM LOTION TP SCH ×2 (09:00→21:00)
[2021-09-21 09:40] LABS: ERYTHROCYTE SEDIMENTATION RATE 40 MM/HR (0-20)
[2021-09-21] MEDS: CALCIUM 500 MG/TAB PO SCH (10:07)
[2021-09-21] MEDS: SUCRALFATE 1 GM TABLET PO SCH ×4 (10:07→23:25)
[2021-09-21] MEDS: ASCORBIC ACID 500 MG TABLET PO SCH (10:07)
[2021-09-21] MEDS: VITAMIN B COMPLEX 1 CAP/TAB PO SCH (10:07)
[2021-09-21] MEDS: FERROUS SULFATE 325 MG TABLET.DR PO SCH ×2 (10:07→23:22)
[2021-09-21] MEDS: PIOGLITAZONE HCL 15 MG TABLET PO SCH (10:07)
[2021-09-21] MEDS: PANTOPRAZOLE SODIUM 40 MG TAB PO SCH (10:07)
[2021-09-21] MEDS: MORPHINE SULFATE 30 MG TABLET.SA PO SCH ×2 (10:08→23:22)
[2021-09-21] MEDS: APIXABAN 2.5 MG TABLET PO SCH ×2 (10:09→23:28)
[2021-09-21] MEDS: metFORMIN HCL 500 MG TABLET PO SCH ×2 (10:09→18:02)
[2021-09-21] MEDS: MULTIVITAMINS TAB 1 TABLET PO SCH (10:09)
[2021-09-21] MEDS ORDERED: POTASSIUM CHLORIDE 20 MEQ TAB.PRT.SR PO ONE (11:45)
[2021-09-21 12:00] VITALS: BP_SYST 143
--- NOTE | 2021-09-21 13:16 | NUR ---
CM: Updated and faxed clinical info to ngozi Sheehan /[facility]: per ID : depending on the culture report will define final antibiotic therapy, preferably oral. DCP : need faxing dcp order for home with resume [facility] to [facility]/ DC planing dept fax # [phone], tel # [phone].
--- NOTE | 2021-09-21 13:50 | NUR ---
ROUNDS Patient in bed asleep with eyes closed. Patient arouses to light stimuli and quickly falls back asleep. Oxygen saturation 89%, nasal cannula applied on 2L. Oxygen returned to 95%. Safety checks made, will continue to monitor.
--- NOTE | 2021-09-21 19:32 | NUR ---
CLOSING NOTE Patient resting in bed, complaining of generalized pain. Patient aware of when she will be receiving her next dose of pain medications. No sign of respiratory distress at this time. PICC dressing changed this afternoon, running prescribed fluids. Safety checks made and all needs met at this time. Endorsed to overnight caregiver nurse.
[2021-09-21 20:00] VITALS: BP_SYST 132
[2021-09-21] MEDS: ATORVASTATIN 20 MG TABLET PO SCH (21:00)
[2021-09-21] MEDS: MORPHINE SULFATE 10 MG/ML VIAL IVP PRN (21:22)
[2021-09-21] MEDS ORDERED: AMITRIPTYLINE HCL 25 MG TABLET (ELAVIL) ONE (22:38)
[2021-09-21] MEDS: DULoxetine HCL 30 MG CAPSULE.DR (CYMBALTA) PO SCH (23:23)
[2021-09-21] MEDS: AMITRIPTYLINE HCL 25 MG TABLET (ELAVIL) PO SCH (23:24)
[2021-09-21] MEDS: traZODone HCL 50 MG TABLET (DESYREL) PO SCH (23:25)
[2021-09-21] MEDS: QUEtiapine FUMARATE 25 MG TABLET PO SCH (23:25)
[2021-09-22] VITALS: BP_SYST 119
[2021-09-22] MEDS: GABAPENTIN 400 MG CAPSULE PO SCH ×3 (06:45→16:59)
[2021-09-22] MEDS: FUROSEMIDE 80 MG TABLET PO SCH ×3 (06:46→22:05)
[2021-09-22] MEDS: INSULIN REGULAR, HUMAN 100 UNITS/ML, 10 ML VIAL (humuLIN R) SUBCUT PRN ×4 (06:51→22:12)
[2021-09-22] MEDS: NORMAL SALINE 5 ML DISP.SYRIN IVF SCH ×3 (06:53→22:22)
[2021-09-22] MEDS: VANCOMYCIN HCL 1,000 MG in NS 250 ML IV SCH ×2 (06:54→17:18)
[2021-09-22 07:04] LABS: BASOPHILS % (AUTO) 0.9 % (0.0-2.0); EOSINOPHILS # (AUTO) 0.1 K/uL (0.0-0.4); EOSINOPHILS % (AUTO) 2.3 % (0.0-4.0); HEMOGLOBIN 11.2 g/dL (12.0-16.0); LYMPHOCYTES # (AUTO) 1.2 K/uL (1.0-5.5); LYMPHOCYTES % (AUTO) 30.7 % (20.5-51.5); MEAN CORPUSCULAR HEMOGLOBIN 25 pg (27-31); MEAN CORPUSCULAR HGB CONC 33 % (32-36); MEAN CORPUSCULAR VOLUME 74 fL (79.0-98.0); MONOCYTES # (AUTO) 0.2 K/uL (0.0-1.0); MONOCYTES % (AUTO) 6.1 % (1.7-9.3); NEUTROPHILS # (AUTO) 2.4 K/uL (1.8-7.7); PLATELET COUNT (AUTO) 245 K/uL (130-430); RED BLOOD CELL COUNT(AUTO) 4.58 MIL/uL (4.2-6.2); RED CELL DISTRIBUTION WIDTH 16.9 % (9.0-15.0); WHITE BLOOD COUNT (AUTO) 4.1 K/uL (4.8-10.8)
[2021-09-22 08:00] VITALS: BP_SYST 136
[2021-09-22 08:00] LABS: C-REACTIVE PROTEIN QUANT 8.6 mg/dL (0-0.5); CALCIUM 8.6 mg/dL (8.4-11.0); CREATININE 1.33 mg/dL (0.55-1.30); POTASSIUM 3.5 mmol/L (3.5-5.1)
[2021-09-22 09:30] LABS: ERYTHROCYTE SEDIMENTATION RATE 46 MM/HR (0-20)
[2021-09-22] MEDS: MULTIVITAMINS TAB 1 TABLET PO SCH (09:37)
[2021-09-22] MEDS: FERROUS SULFATE 325 MG TABLET.DR PO SCH ×2 (09:37→21:59)
[2021-09-22] MEDS: VITAMIN B COMPLEX 1 CAP/TAB PO SCH (09:37)
[2021-09-22] MEDS: PIOGLITAZONE HCL 15 MG TABLET PO SCH (09:37)
[2021-09-22] MEDS: CALCIUM 500 MG/TAB PO SCH (09:37)
[2021-09-22] MEDS: SUCRALFATE 1 GM TABLET PO SCH ×4 (09:38→21:59)
[2021-09-22] MEDS: metFORMIN HCL 500 MG TABLET PO SCH ×2 (09:38→17:00)
[2021-09-22] MEDS: ASCORBIC ACID 500 MG TABLET PO SCH (09:38)
[2021-09-22] MEDS: PANTOPRAZOLE SODIUM 40 MG TAB PO SCH (09:38)
[2021-09-22] MEDS: APIXABAN 2.5 MG TABLET PO SCH ×2 (09:39→22:13)
--- NOTE | 2021-09-22 09:40 | NUR ---
OPENING NOTE Patient sitting at bedside using her computer. Patient is awake and oriented x4, speech is slow. Patient states she has pain in her lower extremities and "wishes to amputate her legs". PICC line is clean, dry, intact and patent running prescribed fluids. All needs met at this time and safety checks made. Updated patient on her plan of care for the day. Will continue to monitor.
--- NOTE | 2021-09-22 10:45 | NUR ---
Dietitian Recommendations * Continue w/ [facility] diet Please refer to Nutrition Assessment for details. Addendum: 09/22/21 at [address] Amended: Links added.
[2021-09-22] MEDS ORDERED: MORPHINE SULFATE 30 MG TABLET.SA PO PRN (11:15)
--- NOTE | 2021-09-22 11:56 | NUR ---
ROUNDS Patient asleep in bed, able to be woken up with deep stimulation. Patient quickly falls back asleep. Oxygen saturation dropped to 84% on room air, applied nasal cannula 2L and oxygen returned to 94%. Dr Ramirez notified of the patient's change in respiratory status. New orders received. Safety checks made, will continue to monitor.
[2021-09-22 12:00] VITALS: BP_SYST 128
[2021-09-22 16:53] VITALS: BP_SYST 130
[2021-09-22] MEDS: AMMONIUM LACTATE 226 GM LOTION TP SCH ×2 (16:59→22:14)
--- NOTE | 2021-09-22 18:52 | NUR ---
CLOSING NOTE Patient asleep in bed, head of bed elevated 30 degrees. Heel protectors in place for protection. PICC line is patent and running prescribed fluids. Nasal cannula in place on 2L, oxygen saturation 100%. Patient is able to be aroused with deep stimuli and quickly falls back asleep. Encouraged patient to wake up and eat and drink fluids throughout the shift. All needs met at this time and safety checks made. Will endorse to cnc machinist 2nd shift nurse.
--- NOTE | 2021-09-22 19:15 | NUR ---
OPENING NOTES Patient resting in bed - no s/s pain or distress noted. Respirations even and unlabored - head of bed elevated. IV site patent - no s/ s redness, infection, or infiltration. Bed locked and in lowest position. Bed alarm on.
[2021-09-22 20:00] VITALS: BP_SYST 118
[2021-09-22] MEDS: traZODone HCL 50 MG TABLET (DESYREL) PO SCH (21:56)
[2021-09-22] MEDS: DULoxetine HCL 30 MG CAPSULE.DR (CYMBALTA) PO SCH (21:56)
[2021-09-22] MEDS: HYDROmorphone 2 MG TAB PO PRN (21:59)
[2021-09-22] MEDS: ATORVASTATIN 20 MG TABLET PO SCH (22:02)
[2021-09-22] MEDS: AMITRIPTYLINE HCL 25 MG TABLET (ELAVIL) PO SCH (22:03)
[2021-09-22] MEDS: QUEtiapine FUMARATE 25 MG TABLET PO SCH (22:04)
[2021-09-23 01:04] VITALS: BP_SYST 133
[2021-09-23] MEDS: GABAPENTIN 400 MG CAPSULE PO SCH ×5 (01:06→23:53)
[2021-09-23] MEDS: FUROSEMIDE 80 MG TABLET PO SCH ×3 (06:47→23:53)
[2021-09-23] MEDS: INSULIN REGULAR, HUMAN 100 UNITS/ML, 10 ML VIAL (humuLIN R) SUBCUT PRN ×3 (07:02→18:45)
[2021-09-23] MEDS: VANCOMYCIN HCL 1,000 MG in NS 250 ML IV SCH ×2 (07:08→17:37)
[2021-09-23] MEDS: NORMAL SALINE 5 ML DISP.SYRIN IVF SCH ×3 (07:08→22:00)
[2021-09-23 08:09] LABS: EOSINOPHILS # (AUTO) 0.2 K/uL (0.0-0.4); EOSINOPHILS % (AUTO) 3.5 % (0.0-4.0); HEMATOCRIT 34.4 % (36-48); HEMOGLOBIN 11.2 g/dL (12.0-16.0); LYMPHOCYTES # (AUTO) 1.1 K/uL (1.0-5.5); MEAN CORPUSCULAR HEMOGLOBIN 24 pg (27-31); MEAN CORPUSCULAR HGB CONC 33 % (32-36); MEAN CORPUSCULAR VOLUME 74 fL (79.0-98.0); MONOCYTES # (AUTO) 0.3 K/uL (0.0-1.0); MONOCYTES % (AUTO) 7.1 % (1.7-9.3); PLATELET COUNT (AUTO) 207 K/uL (130-430); RED BLOOD CELL COUNT(AUTO) 4.62 MIL/uL (4.2-6.2); RED CELL DISTRIBUTION WIDTH 16.7 % (9.0-15.0); WHITE BLOOD COUNT (AUTO) 4.8 K/uL (4.8-10.8)
[2021-09-23 08:26] LABS: C-REACTIVE PROTEIN QUANT 8.1 mg/dL (0-0.5); CALCIUM 7.9 mg/dL (8.4-11.0); CREATININE 1.19 mg/dL (0.55-1.30); POTASSIUM 3.1 mmol/L (3.5-5.1)
[2021-09-23 09:14] LABS: BASOPHILS % (AUTO) 0.7 % (0.0-2.0); NEUTROPHILS % (AUTO) 65.7 % (40.0-70.0)
[2021-09-23 09:16] LABS: NEUTROPHILS # (AUTO) 3.2 K/uL (1.8-7.7)
[2021-09-23] MEDS: FERROUS SULFATE 325 MG TABLET.DR PO SCH ×2 (09:38→21:00)
[2021-09-23] MEDS: CALCIUM 500 MG/TAB PO SCH (09:38)
[2021-09-23] MEDS: MULTIVITAMINS TAB 1 TABLET PO SCH (09:38)
[2021-09-23] MEDS: VITAMIN B COMPLEX 1 CAP/TAB PO SCH (09:39)
[2021-09-23] MEDS: metFORMIN HCL 500 MG TABLET PO SCH ×2 (09:39→17:38)
[2021-09-23] MEDS: PANTOPRAZOLE SODIUM 40 MG TAB PO SCH (09:39)
[2021-09-23] MEDS: ASCORBIC ACID 500 MG TABLET PO SCH (09:39)
[2021-09-23] MEDS: PIOGLITAZONE HCL 15 MG TABLET PO SCH (09:39)
[2021-09-23] MEDS: SUCRALFATE 1 GM TABLET PO SCH ×4 (09:39→21:00)
[2021-09-23] MEDS: APIXABAN 2.5 MG TABLET PO SCH ×2 (09:40→23:55)
[2021-09-23] MEDS: AMMONIUM LACTATE 226 GM LOTION TP SCH ×2 (09:59→21:00)
[2021-09-23] MEDS: HYDROmorphone 2 MG TAB PO PRN ×3 (10:20→23:33)
[2021-09-23 12:41] VITALS: BP_SYST 134
[2021-09-23 16:50] VITALS: BP_SYST 149
[2021-09-23] MEDS ORDERED: POTASSIUM CHLORIDE 20 MEQ TAB.PRT.SR PO ONE (17:00)
--- NOTE | 2021-09-23 17:02 | NUR ---
HIGH ALERT NOTE: Called Dr. Ramirez back at [phone] identified within the medical roster to verify physician authenticity.
[2021-09-23] MEDS: traZODone HCL 50 MG TABLET (DESYREL) PO SCH (21:00)
[2021-09-23] MEDS: ATORVASTATIN 20 MG TABLET PO SCH (21:00)
[2021-09-23] MEDS: AMITRIPTYLINE HCL 25 MG TABLET (ELAVIL) PO SCH (21:00)
[2021-09-23] MEDS: DULoxetine HCL 30 MG CAPSULE.DR (CYMBALTA) PO SCH (21:00)
--- NOTE | 2021-09-23 23:10 | NUR ---
2100 MEDICATIONS PT DID NOT WAN TO TAKE ALL OF HER MEDICATION R/T THEY WERE OT GIVEN TO HER AT 2100. PT AGREED TO DO HER ACCU CHECK WHICH WAS 205 AND COVERED WITH 4 UNITS REG INSULIN. PT TOOK NORCO PAIN PILL. PT TOOK HER ELIQUIS . PT DID A COUPLE OF MORE MEDS AND REFUSED THE REST OF HER MEDICATIONS
--- NOTE | 2021-09-23 23:17 | NUR ---
OPENING NOTE Due to change in pt assignment, report was given received at 2303 from Arleen RED Patient sitting at bedside using her computer. Patient is awake and oriented x4, speech is slow. PICC line is clean, dry, intact and patent running prescribed fluids. All needs met at this time and safety precautions in place. Updated patient on her plan of care for the day.Will continue to monitor.
--- NOTE | 2021-09-23 23:19 | NUR ---
Pt c/o of pain in lower extremity and is requesting pain medication.
[2021-09-23] MEDS: QUEtiapine FUMARATE 25 MG TABLET PO SCH (23:54)
[2021-09-24] MEDS: INSULIN REGULAR, HUMAN 100 UNITS/ML, 10 ML VIAL (humuLIN R) SUBCUT PRN ×2 (00:13→07:02)
--- NOTE | 2021-09-24 00:30 | NUR ---
PAIN 01/01 PT DID REQUEST MS CONTIN R/T YOLIECO DID NOT RELIVE HER PAIN
[2021-09-24 00:50] VITALS: BP_SYST 128
--- NOTE | 2021-09-24 04:00 | NUR ---
PT IN BED ASLLEP WITH O C/O PAIN AND NO DISTRESS NOTED
[2021-09-24] MEDS: FUROSEMIDE 80 MG TABLET PO SCH ×2 (06:51→14:35)
[2021-09-24] MEDS: HYDROmorphone 2 MG TAB PO PRN (06:53)
[2021-09-24] MEDS: NORMAL SALINE 5 ML DISP.SYRIN IVF SCH ×2 (06:53→14:20)
[2021-09-24] MEDS: VANCOMYCIN HCL 1,000 MG in NS 250 ML IV SCH (06:54)
[2021-09-24] MEDS: GABAPENTIN 400 MG CAPSULE PO SCH ×2 (06:55→12:00)
[2021-09-24 09:29] LABS: BASOPHILS % (AUTO) 0.5 % (0.0-2.0); EOSINOPHILS # (AUTO) 0.1 K/uL (0.0-0.4); EOSINOPHILS % (AUTO) 2.6 % (0.0-4.0); HEMOGLOBIN 10.7 g/dL (12.0-16.0); LYMPHOCYTES # (AUTO) 1.4 K/uL (1.0-5.5); LYMPHOCYTES % (AUTO) 30.2 % (20.5-51.5); MEAN CORPUSCULAR HEMOGLOBIN 24 pg (27-31); MEAN CORPUSCULAR HGB CONC 32 % (32-36); MEAN CORPUSCULAR VOLUME 74 fL (79.0-98.0); MONOCYTES # (AUTO) 0.3 K/uL (0.0-1.0); MONOCYTES % (AUTO) 5.8 % (1.7-9.3); NEUTROPHILS # (AUTO) 2.8 K/uL (1.8-7.7); NEUTROPHILS % (AUTO) 60.9 % (40.0-70.0); PLATELET COUNT (AUTO) 236 K/uL (130-430); RED BLOOD CELL COUNT(AUTO) 4.45 MIL/uL (4.2-6.2); RED CELL DISTRIBUTION WIDTH 17.1 % (9.0-15.0); WHITE BLOOD COUNT (AUTO) 4.7 K/uL (4.8-10.8)
[2021-09-24 10:20] LABS: ALBUMIN 2.8 g/dL (3.4-4.8); C-REACTIVE PROTEIN QUANT 7.1 mg/dL (0-0.5); CALCIUM 7.9 mg/dL (8.4-11.0); CREATININE 1.38 mg/dL (0.55-1.30); PHOSPHORUS 3.7 mg/dL (2.7-4.5); POTASSIUM 3.3 mmol/L (3.5-5.1); TOTAL BILIRUBIN 0.3 mg/dL (0.0-1.0)
[2021-09-24] MEDS: MULTIVITAMINS TAB 1 TABLET PO SCH (10:23)
[2021-09-24] MEDS: SUCRALFATE 1 GM TABLET PO SCH ×2 (10:24→14:20)
[2021-09-24] MEDS: CALCIUM 500 MG/TAB PO SCH (10:24)
[2021-09-24] MEDS: VITAMIN B COMPLEX 1 CAP/TAB PO SCH (10:24)
[2021-09-24] MEDS: metFORMIN HCL 500 MG TABLET PO SCH (10:25)
[2021-09-24] MEDS: APIXABAN 2.5 MG TABLET PO SCH (10:26)
[2021-09-24] MEDS: PANTOPRAZOLE SODIUM 40 MG TAB PO SCH (10:27)
[2021-09-24] MEDS: ASCORBIC ACID 500 MG TABLET PO SCH (10:27)
[2021-09-24] MEDS: AMMONIUM LACTATE 226 GM LOTION TP SCH (10:29)
[2021-09-24] MEDS: PIOGLITAZONE HCL 15 MG TABLET PO SCH (10:29)
[2021-09-24] MEDS: FERROUS SULFATE 325 MG TABLET.DR PO SCH (10:29)
[2021-09-24] MEDS ORDERED: METF-379 PO (10:40)
[2021-09-24] MEDS ORDERED: PIOG15TA8 PO (10:40)
[2021-09-24] MEDS ORDERED: DOXY100T2 PO (10:40)
[2021-09-24 11:23] VITALS: BP_SYST 102
[2021-09-24 12:24] LABS: ERYTHROCYTE SEDIMENTATION RATE 79 MM/HR (0-20)
--- NOTE | 2021-09-24 12:33 | NUR ---
PATIENT AND RN REQUESTED TO [facility] PHYSICAL THERAPY TREATMENT TODAY BECAUSE THE PATIENT WANTS TO REST PRIOR TO GOING HOME THIS AFTERNOON.
--- NOTE | 2021-09-24 13:17 | NUR ---
DISCHARGE PLANNING Received call from Aguila at [facility], ph [phone], updated on pt status. Informed order to dc home with home health. States to fax to their dc planning team attn: Gay, fax [phone] . States pt was on services with [facility] Home health prior & will give them auth to continue care once receives pt info. Updated dc inventory planner. Addendum: 09/24/21 at 1349 by Alysa Morris RN Dc inventory planner faxed order/pt info to [facility] to set up home health.
[2021-09-24 14:37] VITALS: BP_SYST 131
--- NOTE | 2021-09-29 16:20 | NUR ---
ENGINEER INTERN OSCAR Cisse received a call from patient stating she was concerned home health had not provided services since her discharge. She was requesting information related to home health order. OSCAR reviewed notes, and informed patient home health orders and related documents were faxed to [facility]. OSCAR provided patient with number for [facility] Blue Split Trimmer Aguila
== END 2021-09-24 16:30 | disposition home health service (06) | DRG 720 ==
LOC: SED 01:39 → SMU 06:50
PROVIDERS: ADMIT Preventive Medicine Preventive Medicine/Occupational Environmental Medicine; ATTEND Preventive Medicine Preventive Medicine/Occupational Environmental Medicine
PROC: 02HV33Z Insertion of Infusion Device into Superior Vena Cava, Percutaneous Approach (ICD-10-PCS; principal; 2021-09-19)
DX: A41.9 Sepsis, unspecified organism (principal); E44.0 Moderate protein-calorie malnutrition; E11.22 Type 2 diabetes mellitus with diabetic chronic kidney disease; N17.9 Acute kidney failure, unspecified; E87.1 Hypo-osmolality and hyponatremia; E83.51 Hypocalcemia; E11.40 Type 2 diabetes mellitus with diabetic neuropathy, unspecified; E88.09 Other disorders of plasma-protein metabolism, not elsewhere classified; D64.9 Anemia, unspecified; L03.115 Cellulitis of right lower limb; E11.65 Type 2 diabetes mellitus with hyperglycemia; E83.52 Hypercalcemia; L03.116 Cellulitis of left lower limb; E87.6 Hypokalemia; Z20.822 Contact with and (suspected) exposure to COVID-19; N39.0 Urinary tract infection, site not specified; L30.9 Dermatitis, unspecified; N18.9 Chronic kidney disease, unspecified; B96.4 Proteus (mirabilis) (morganii) as the cause of diseases classified elsewhere; Z68.43 Body mass index [BMI] 50.0-59.9, adult; Z79.01 Long term (current) use of anticoagulants; Z86.718 Personal history of other venous thrombosis and embolism; Z88.6 Allergy status to analgesic agent; Z88.5 Allergy status to narcotic agent; Z88.2 Allergy status to sulfonamides; Z88.8 Allergy status to other drugs, medicaments and biological substances; Z79.899 Other long term (current) drug therapy; Z91.010 Allergy to peanuts; Z91.013 Allergy to seafood; Z91.09 Other allergy status, other than to drugs and biological substances
CPT/HCPCS: 36415; 36600; 71045; 73590-TC; 80048; 80053; 80202; 81000; 82550; 82803-TC; 82962; 83605; 83735; 83930; 84100; 84702; 85025; 85610-TC; 85651-TC; 85730-TC; 86140; 87040; 87086; 93005; 96374; 97163-GP; 99285; J2060; J2270; J2274; J2405; J3370; J7050

== ENCOUNTER 2021-12-04 16:00 | Emergency (ER) | payer MEDICAID ==
[~2021-12-04] VITALS: Ht 167.6 cm; Wt 154.7 kg
[2021-12-04 16:00] VITALS: BP_SYST 162
[~2021-12-04 16:00] MED LIST changes: +DOXY100T2 PO; +METF-379 PO; +PIOG15TA8 PO
--- NOTE | 2021-12-04 16:05 | NUR ---
Patient triaged and placed in waiting room. VSS and patient appears in no acute distress at this time. Accompanied by SELF, awaiting available bed, and MD notified of need for MSE.
[2021-12-04 17:46] LABS: BASOPHILS % (AUTO) 0.4 % (0.0-2.0); EOSINOPHILS # (AUTO) 0.1 K/uL (0.0-0.4); HEMATOCRIT 33.3 % (36-48); HEMOGLOBIN 10.6 g/dL (12.0-16.0); LYMPHOCYTES % (AUTO) 15.2 % (20.5-51.5); MEAN CORPUSCULAR HEMOGLOBIN 24 pg (27-31); MEAN CORPUSCULAR HGB CONC 32 % (32-36); MEAN CORPUSCULAR VOLUME 75 fL (79.0-98.0); MONOCYTES # (AUTO) 0.3 K/uL (0.0-1.0); MONOCYTES % (AUTO) 5.2 % (1.7-9.3); NEUTROPHILS # (AUTO) 4.8 K/uL (1.8-7.7); NEUTROPHILS % (AUTO) 77.2 % (40.0-70.0); PLATELET COUNT (AUTO) 212 K/uL (130-430); RED BLOOD CELL COUNT(AUTO) 4.47 MIL/uL (4.2-6.2); RED CELL DISTRIBUTION WIDTH 17.3 % (9.0-15.0); WHITE BLOOD COUNT (AUTO) 6.3 K/uL (4.8-10.8)
[2021-12-04 17:55] LABS: CALCIUM 8.8 mg/dL (8.4-11.0); CREATININE 0.81 mg/dL (0.55-1.30); POTASSIUM 4.1 mmol/L (3.5-5.1)
[2021-12-04 18:01] LABS: ALBUMIN 2.8 g/dL (3.4-4.8); TOTAL BILIRUBIN 0.4 mg/dL (0.0-1.0)
--- NOTE | 2021-12-04 18:26 | NUR ---
BROUGHT BACK TO BED #8 VIA WHEELCHAIR, REPORT GIVEN TO MARBELLA
[2021-12-04] MEDS ORDERED: ONDANSETRON HCL 4 MG/2 ML VIAL IVP ONE (19:00)
[2021-12-04] MEDS ORDERED: NACL 0.9% 1,000 ML IV ONE (19:00)
[2021-12-04] MEDS ORDERED: MORPHINE 4 MG INJ. 4 MG/ML VIAL IVP ONE (20:45)
[2021-12-04 23:16] VITALS: BP_SYST 135
--- NOTE | 2021-12-04 23:21 | NUR ---
Patient given written and verbal discharge instructions and verbalizes understanding. ER MD discussed with patient the results and treatment provided. Patient in stable condition. ID arm band removed. IV catheter removed intact and dressing applied, no active bleeding. Rx of given. Patient educated on pain management and to follow up with PMD. Pain Scale . Opportunity for questions provided and answered. Medication side effect fact sheet provided.
== END 2021-12-04 23:14 | disposition home or self-care (01) ==
LOC: SED 16:00
DX: K59.00 Constipation, unspecified (principal); R10.84 Generalized abdominal pain; R11.10 Vomiting, unspecified; E11.9 Type 2 diabetes mellitus without complications; I10 Essential (primary) hypertension; J45.909 Unspecified asthma, uncomplicated; Z88.2 Allergy status to sulfonamides; Z88.5 Allergy status to narcotic agent; Z88.6 Allergy status to analgesic agent; Z88.7 Allergy status to serum and vaccine; Z88.8 Allergy status to other drugs, medicaments and biological substances; Z79.899 Other long term (current) drug therapy
CPT/HCPCS: 99284; 74176; 96374; 96361; 80053; 83690; 85025; 36415; 76376; J2405; J2270; J7030

== ENCOUNTER 2022-04-06 14:59 | Inpatient (IN) | payer MEDICAID ==
[~2022-04-06] VITALS: Ht 167.6 cm; Wt 133.0 kg
[~2022-04-06 14:59] MED LIST changes: +SUCR1TAB2 PO; -SUCR1TAB78 PO
[2022-04-06 15:05] VITALS: BP_SYST 111
--- NOTE | 2022-04-06 16:10 | NUR ---
Pt brought by self, A&Ox4, pt presents to ER with R foot , back pain after she fell during transfer from bedside comode to a chair, no KO, pt takes blood thiners due to Hx of DVT, afebrile, will cont to monitor.
--- NOTE | 2022-04-06 16:26 | NUR ---
Dr Whitehead evaluating patient in the triage room
[2022-04-06] MEDS ORDERED: HYDROmorphone 1 MG/ML INJ. CARTRIDGE IM ONE (19:45)
[2022-04-06 20:48] LABS: BASOPHILS % (AUTO) 0.1 % (0.0-2.0); HEMATOCRIT 33.7 % (36-48); HEMOGLOBIN 10.8 g/dL (12.0-16.0); LYMPHOCYTES # (AUTO) 0.2 K/uL (1.0-5.5); LYMPHOCYTES % (AUTO) 2.1 % (20.5-51.5); MEAN CORPUSCULAR HEMOGLOBIN 29 pg (27-31); MEAN CORPUSCULAR HGB CONC 32 % (32-36); MEAN CORPUSCULAR VOLUME 89 fL (79.0-98.0); MONOCYTES # (AUTO) 0.2 K/uL (0.0-1.0); MONOCYTES % (AUTO) 2.1 % (1.7-9.3); NEUTROPHILS # (AUTO) 11.1 K/uL (1.8-7.7); NEUTROPHILS % (AUTO) 95.7 % (40.0-70.0); PLATELET COUNT (AUTO) 172 K/uL (130-430); RED CELL DISTRIBUTION WIDTH 16.2 % (9.0-15.0); WHITE BLOOD COUNT (AUTO) 11.6 K/uL (4.8-10.8)
[2022-04-06 20:59] LABS: ANION GAP 11 (5-15); CALCIUM 8.3 mg/dL (8.4-11.0); CHLORIDE 99 mmol/L (98-107); CREATININE 1.24 mg/dL (0.55-1.30); GLUCOSE 210 mg/dL (70-99); UREA NITROGEN, BLOOD 22 mg/dL (8-21)
[2022-04-06] MEDS ORDERED: NACL 0.9% 1,000 ML IV ONE (21:00)
[2022-04-06 21:07] LABS: ALANINE AMINOTRANSFERASE 52 U/L (12-78); ALBUMIN 2.4 g/dL (3.4-4.8); ASPARTATE AMINOTRANSFERASE 97 U/L (10-37); TOTAL BILIRUBIN 1.2 mg/dL (0.0-1.0)
--- NOTE | 2022-04-06 21:19 | NUR ---
Report given to Fran RED
--- NOTE | 2022-04-06 21:19 | NUR ---
Patient to ER bed 04 to gown for evaluation. Side rails up.
[2022-04-06 21:20] LABS: GFR AFRICAN AMERICAN 59 mL/min (>90)
--- NOTE | 2022-04-06 21:30 | NUR ---
WHEN I RETURNED FROM MED SURG AFTER TRANSPORTING. I WENT TO ASSESS PATIENT FOR THE FIRST TIME. PATIENT WAS FOUND ON FLOOR WITH SON, SON REPORTS TRYING TO TRANSFER PATIENT FROM [facility] TO BED BY HIMSELF. PT REPORTS SHE TOLD HIM SHE WAS FEELING FAINT AND HE AND ER MD LOWERED PATIENT TO THE FLOOR. PT DENIES PAIN AND IS A&O X3. STREAM CONTROL OFFICER REPORTS TELLING SON TO WAIT FOR ASSISTANCE AND HE DID NOT. PT AND SON EDUCATED AND INFORMED THAT PATIENT MUST REMAIN IN BED UNTIL STAFF MEMBER IS ABLE TO HELP. PT AND EDUCATED ON SAFE AND UNDERSTANDS. BED TO LOWEST POSITION, SAFETY PRECAUTIONS IN PLACE AND CONNECTED TO MONITOR.
[2022-04-06] MEDS ORDERED: MORPHINE 4 MG INJ. 4 MG/ML VIAL IVP ONE (22:30)
--- NOTE | 2022-04-06 22:34 | NUR ---
Admit bed requested Patient will be admitted to care of Admitted to TELE unit. Diagnosis MECHANICAL FALL, INTRACTABLE PAIN Inpatient (Yes or No) YES Observation (Yes or No) NO Orientation concerns or request close to nursing station (Yes or No) NO Covid Status PENDING On vent or bipap NO Isolation requirements NO Needs a sitter NO From Home (Yes or if No enter name of facility) YES Requires Dialysis (Yes or No) NO Med Rec Completed (Yes of No) PENDING
[2022-04-06] MEDS ORDERED: NON-FORMULARY MEDICATION (Liraglutide (Victoza 2-Pak) 1.8 MG) SQ SCH (23:00)
[2022-04-06] MEDS ORDERED: INSULIN REGULAR, HUMAN 100 UNITS/ML, 3 ML VIAL (humuLIN R) SUBCUT PRN (23:00)
[2022-04-06] MEDS ORDERED: ONDANSETRON HCL 4 MG/2 ML VIAL IVP PRN (23:00)
--- NOTE | 2022-04-06 23:20 | NUR ---
# 20 gauge angiocath placed to LAC. Use of asceptic technique. Opsite placed over site. Blood return noted. Blood for lab drawn from site. Flushed with 10 cc of normal saline. No evidence of infiltration noted. Patient tolerated well.
[2022-04-07] MEDS ORDERED: GABAPENTIN 400 MG CAPSULE PO SCH
[2022-04-07] MEDS ORDERED: GABAPENTIN 300 MG CAPSULE ONE (00:17)
--- NOTE | 2022-04-07 00:21 | NUR ---
CONTACTED HOUSE SUP FOR GABAPENTIN MEDICATTION THAT IS OUT IN [place]. HE REPORTS THAT WE ONLY CARRY THE MEDICATION IN 300MG DOSAGES. DR. MARTINEZ PAGED.
[2022-04-07] MEDS: GABAPENTIN 300 MG CAPSULE PO SCH ×4 (00:52→21:00)
[2022-04-07 01:44] LABS: BILIRUBIN,URINE NEGATIVE (NEGATIVE); BLOOD, URINE NEGATIVE (NEGATIVE); CLARITY/URINE CLEAR (CLEAR); COLOR,URINE YELLOW (YELLOW); GLUCOSE,URINE NEGATIVE (NEGATIVE); KETONES,URINE NEGATIVE (NEGATIVE); LEUKOCYTE ESTERASE ,URINE NEGATIVE (NEGATIVE); NITRITE, URINE NEGATIVE (NEGATIVE); PROTEIN URINE NEGATIVE (NEGATIVE)
--- NOTE | 2022-04-07 01:47 | NUR ---
PT WITH TEMPORAL TEMP OF 100.9. DR. MARTINEZ PAGED FOR ORDER.
--- NOTE | 2022-04-07 02:00 | NUR ---
Patient will be admitted to care of DR MARTINEZ. Admitted to TELEMETRY unit. Will go to room 122B. Belongings list completed. Complete and up to date summary report printed. SBAR report given to BOBBI RED at bedside with opportunity for questions.
[2022-04-07 02:33] VITALS: BP_SYST 158
--- NOTE | 2022-04-07 03:56 | NUR ---
Consultation Paged Reason for Consultation: DVT Was consult called: Y Person who was notified: Kathy Consulting Physician: Dr. Robertson Ordering Physician: Freedom Melissa
--- NOTE | 2022-04-07 05:29 | NUR ---
Consultation Paged Reason for Consultation: TACHYCARDIA Was consult called: Y Person who was notified: Juan Manuel Consulting Physician: Dwayne Melissa Ordering Physician: Freedom Melissa
[2022-04-07] MEDS: SUCRALFATE 1 GM TABLET PO SCH ×4 (06:13→22:25)
[2022-04-07] MEDS: FUROSEMIDE 80 MG TABLET PO SCH ×3 (06:13→21:45)
[2022-04-07] MEDS: ACETAMINOPHEN 325 MG TABLET PO PRN (06:23)
--- NOTE | 2022-04-07 07:00 | NUR ---
Report received from speech therapist technician RN for continuity of care. Patient in stable condition. No distress noted.
[2022-04-07] MEDS: metFORMIN HCL 500 MG TABLET PO SCH ×2 (08:11→12:02)
[2022-04-07] MEDS: DOXYCYCLINE HYCLATE 100 MG CAPSULE PO SCH ×2 (08:12→22:25)
[2022-04-07] MEDS: CALCIUM CARBONATE/VITAMIN D3 1 TAB TABLET PO SCH (08:13)
[2022-04-07] MEDS: MULTIVITS,CA,MINERALS/IRON/FA 1 TABLET PO SCH (08:13)
[2022-04-07] MEDS: PANTOPRAZOLE SODIUM 40 MG TAB PO SCH (08:13)
[2022-04-07] MEDS: FERROUS SULFATE 325 MG TABLET.DR PO SCH ×2 (08:14→22:25)
[2022-04-07] MEDS: VITAMIN B COMPLEX 1 CAP/TAB PO SCH (08:14)
[2022-04-07] MEDS: ASCORBIC ACID 500 MG TABLET PO SCH (08:15)
[2022-04-07] MEDS: PIOGLITAZONE HCL 15 MG TABLET PO SCH (08:15)
[2022-04-07] MEDS ORDERED: NON-FORMULARY MEDICATION (Apixaban (Eliquis) 5 MG) PO SCH (09:00)
[2022-04-07] MEDS ORDERED: APIXABAN 2.5 MG TABLET PO SCH ×2 (09:00→21:00)
[2022-04-07] MEDS ORDERED: MORPHINE SULFATE 100 MG TABLET.SA PO SCH (09:00)
[2022-04-07] MEDS: TOPIRAMATE 100 MG TABLET(Topamax) PO SCH ×3 (09:00→22:25)
[2022-04-07 09:07] LABS: BASOPHILS % (AUTO) 0.2 % (0.0-2.0); HEMOGLOBIN 9.2 g/dL (12.0-16.0); LYMPHOCYTES # (AUTO) 0.3 K/uL (1.0-5.5); LYMPHOCYTES % (AUTO) 4.7 % (20.5-51.5); MEAN CORPUSCULAR HEMOGLOBIN 29 pg (27-31); MEAN CORPUSCULAR HGB CONC 33 % (32-36); MEAN CORPUSCULAR VOLUME 87 fL (79.0-98.0); MONOCYTES # (AUTO) 0.2 K/uL (0.0-1.0); MONOCYTES % (AUTO) 3.2 % (1.7-9.3); NEUTROPHILS # (AUTO) 5.5 K/uL (1.8-7.7); NEUTROPHILS % (AUTO) 91.9 % (40.0-70.0); PLATELET COUNT (AUTO) 138 K/uL (130-430); RED BLOOD CELL COUNT(AUTO) 3.21 MIL/uL (4.2-6.2); RED CELL DISTRIBUTION WIDTH 16.2 % (9.0-15.0)
[2022-04-07 09:27] LABS: CALCIUM 7.3 mg/dL (8.4-11.0); CREATININE 1.21 mg/dL (0.55-1.30); PHOSPHORUS 2.9 mg/dL (2.7-4.5)
[2022-04-07 09:34] VITALS: BP_SYST 128
[2022-04-07] MEDS ORDERED: POTASSIUM CHLORIDE 20 MEQ TAB.PRT.SR PO ONE ×2 (10:30→22:00)
[2022-04-07] MEDS ORDERED: POTASSIUM CHLORIDE 20 MEQ TAB.PRT.SR PO PRN (10:30)
[2022-04-07] MEDS ORDERED: LOSARTAN POTASSIUM 50 MG TABLET (COZAAR) PO ONE (11:45)
[2022-04-07] MEDS ORDERED: MAGNESIUM SULFATE 50 ML IV ONE (12:00)
[2022-04-07] MEDS: NACL 0.9% 1,000 ML IV SCH ×2 (12:00→22:00)
[2022-04-07] MEDS: MORPHINE SULFATE 30 MG TABLET.SA PO SCH (12:40)
[2022-04-07 13:42] VITALS: BP_SYST 125
[2022-04-07 15:45] VITALS: BP_SYST 117
[2022-04-07] MEDS ORDERED: iohexoL 350 mgI/mL, 100 ML INFUS..BTL IV ONE (15:56)
[2022-04-07] MEDS ORDERED: HEPARIN 25,000 UNITS/D5W 250ML 250 ML IV SCH (17:45)
[2022-04-07] MEDS ORDERED: HEPARIN 25,000 UNITS/D5W 250ML 250 ML IV ONE (18:37)
[2022-04-07] MEDS ORDERED: *HEPARIN PER PHARMACY XX ONE (18:45)
--- NOTE | 2022-04-07 18:53 | NUR ---
heparin started at 15 ml/hr per pharmacy protocol
[2022-04-07] MEDS ORDERED: HEPARIN SODIUM,PORCINE 2000 UNITS/0.4 ML BOLUS IVP PRN (19:00)
[2022-04-07] MEDS ORDERED: HEPARIN SODIUM,PORCINE 3000 UNITS/0.6 ML BOLUS IVP PRN (19:00)
[2022-04-07] MEDS ORDERED: HEPARIN 25,000 UNITS in 250 ML PREMIX IV PRN (19:00)
[2022-04-07 19:06] LABS: BASOPHILS % (AUTO) 0.3 % (0.0-2.0); EOSINOPHILS % (AUTO) 0.1 % (0.0-4.0); HEMATOCRIT 27.5 % (36-48); HEMOGLOBIN 8.9 g/dL (12.0-16.0); LYMPHOCYTES # (AUTO) 0.3 K/uL (1.0-5.5); LYMPHOCYTES % (AUTO) 6.5 % (20.5-51.5); MEAN CORPUSCULAR HEMOGLOBIN 28 pg (27-31); MEAN CORPUSCULAR HGB CONC 32 % (32-36); MEAN CORPUSCULAR VOLUME 88 fL (79.0-98.0); MONOCYTES # (AUTO) 0.2 K/uL (0.0-1.0); MONOCYTES % (AUTO) 3.4 % (1.7-9.3); NEUTROPHILS # (AUTO) 4.1 K/uL (1.8-7.7); NEUTROPHILS % (AUTO) 89.7 % (40.0-70.0); PLATELET COUNT (AUTO) 141 K/uL (130-430); RED BLOOD CELL COUNT(AUTO) 3.12 MIL/uL (4.2-6.2); WHITE BLOOD COUNT (AUTO) 4.6 K/uL (4.8-10.8)
[2022-04-07 19:50] VITALS: BP_SYST 134
[2022-04-07 19:52] LABS: BILIRUBIN,URINE NEGATIVE (NEGATIVE); BLOOD, URINE NEGATIVE (NEGATIVE); CLARITY/URINE SL CLOUDY (CLEAR); COLOR,URINE YELLOW (YELLOW); GLUCOSE,URINE NEGATIVE (NEGATIVE); KETONES,URINE NEGATIVE (NEGATIVE); LEUKOCYTE ESTERASE ,URINE NEGATIVE (NEGATIVE); NITRITE, URINE NEGATIVE (NEGATIVE); PH,URINE 5.5 (5.0-8.0); PROTEIN URINE NEGATIVE (NEGATIVE); UROBILINOGEN,URINE 0.2 (0.2-1.0)
[2022-04-07 20:00] VITALS: BP_SYST 99
[2022-04-07 20:03] LABS: OPIATE, URINE POSITIVE (NEG <=100); UR TRICYCLIC ANTIDEPRESSANTS POSITIVE (NEG <=300)
[2022-04-07 20:05] LABS: BARBITURATE, URINE NEGATIVE (NEG <=200)
[2022-04-07 20:06] LABS: BENZODIAZEPINE, URINE NEGATIVE (NEG <=150); CANNABINOID, URINE NEGATIVE (NEG <=50); COCAINE, URINE NEGATIVE (NEG <=150); METHAMPHETAMINES SCREEN,URINE NEGATIVE (NEG <=500); PHENCYCLIDINE SCREEN,URINE NEGATIVE (NEG <=25); URINE AMPHETAMINE NEGATIVE (NEG <=500); URINE METHADONE NEGATIVE (NEG <=200); URINE OXYCODONE SCREEN NEGATIVE (NEG <=100); URINE PROPOXYPHENE SCREEN NEGATIVE (NEG <=300)
[2022-04-07 20:12] LABS: CALCIUM 7.6 mg/dL (8.4-11.0); CREATININE 1.12 mg/dL (0.55-1.30); PHOSPHORUS 3.1 mg/dL (2.7-4.5)
[2022-04-07] MEDS ORDERED: [UNRECOGNIZED DRUG - OTHER] SUBCUT SCH (21:00)
[2022-04-07] MEDS: QUEtiapine FUMARATE 25 MG TABLET PO SCH (21:00)
[2022-04-07] MEDS: traZODone HCL 50 MG TABLET (DESYREL) PO SCH (21:00)
[2022-04-07] MEDS: LORazepam 1 MG TABLET PO SCH (21:00)
[2022-04-07] MEDS: DULoxetine HCL 30 MG CAPSULE.DR (CYMBALTA) PO SCH (21:00)
[2022-04-07] MEDS: AMITRIPTYLINE HCL 25 MG TABLET (ELAVIL) PO SCH (21:00)
--- NOTE | 2022-04-07 21:00 | NUR ---
received critical lab potassium 2.9, endorsed to NEDA Hardwick
[2022-04-07] MEDS: ATORVASTATIN 20 MG TABLET PO SCH (22:25)
--- NOTE | 2022-04-08 00:30 | NUR ---
Patient APTT 57.7, per protocol no adjustment for heparin drip continue at 1500units (15 mL/hr)
[2022-04-08] MEDS: SUCRALFATE 1 GM TABLET PO SCH ×4 (06:20→20:59)
[2022-04-08] MEDS: FUROSEMIDE 80 MG TABLET PO SCH ×3 (06:20→21:02)
--- NOTE | 2022-04-08 07:00 | NUR ---
Report received from shift leader RN for continuity of care. Patient stable.
[2022-04-08 07:37] LABS: BASOPHILS % (AUTO) 0.4 % (0.0-2.0); HEMATOCRIT 27.3 % (36-48); LYMPHOCYTES # (AUTO) 0.3 K/uL (1.0-5.5); LYMPHOCYTES % (AUTO) 7.3 % (20.5-51.5); MEAN CORPUSCULAR HEMOGLOBIN 29 pg (27-31); MEAN CORPUSCULAR HGB CONC 33 % (32-36); MEAN CORPUSCULAR VOLUME 87 fL (79.0-98.0); MONOCYTES # (AUTO) 0.2 K/uL (0.0-1.0); MONOCYTES % (AUTO) 4.6 % (1.7-9.3); NEUTROPHILS # (AUTO) 4.1 K/uL (1.8-7.7); NEUTROPHILS % (AUTO) 87.7 % (40.0-70.0); PLATELET COUNT (AUTO) 122 K/uL (130-430); RED BLOOD CELL COUNT(AUTO) 3.15 MIL/uL (4.2-6.2); RED CELL DISTRIBUTION WIDTH 15.7 % (9.0-15.0); WHITE BLOOD COUNT (AUTO) 4.7 K/uL (4.8-10.8)
[2022-04-08 07:42] VITALS: BP_SYST 96
[2022-04-08 07:45] LABS: ALBUMIN 1.8 g/dL (3.4-4.8); CALCIUM 7.4 mg/dL (8.4-11.0); CREATININE 1.07 mg/dL (0.55-1.30); PHOSPHORUS 2.6 mg/dL (2.7-4.5); TOTAL BILIRUBIN 1.3 mg/dL (0.0-1.0)
[2022-04-08] MEDS: DOXYCYCLINE HYCLATE 100 MG CAPSULE PO SCH ×2 (08:06→20:59)
[2022-04-08] MEDS: VITAMIN B COMPLEX 1 CAP/TAB PO SCH (08:06)
[2022-04-08] MEDS: CALCIUM CARBONATE/VITAMIN D3 1 TAB TABLET PO SCH (08:06)
[2022-04-08] MEDS: GABAPENTIN 300 MG CAPSULE PO SCH ×3 (08:06→21:08)
[2022-04-08] MEDS: metFORMIN HCL 500 MG TABLET PO SCH ×2 (08:06→17:28)
[2022-04-08] MEDS: MULTIVITS,CA,MINERALS/IRON/FA 1 TABLET PO SCH (08:07)
[2022-04-08] MEDS: PIOGLITAZONE HCL 15 MG TABLET PO SCH (08:08)
[2022-04-08] MEDS: MORPHINE SULFATE 30 MG TABLET.SA PO SCH ×2 (08:08→21:09)
[2022-04-08] MEDS: ACETAMINOPHEN 325 MG TABLET PO PRN (08:09)
[2022-04-08] MEDS: ASCORBIC ACID 500 MG TABLET PO SCH (08:09)
[2022-04-08] MEDS: PANTOPRAZOLE SODIUM 40 MG TAB PO SCH (08:09)
[2022-04-08] MEDS: TOPIRAMATE 100 MG TABLET(Topamax) PO SCH ×3 (08:09→20:59)
[2022-04-08] MEDS: LOSARTAN POTASSIUM 50 MG TABLET (COZAAR) PO SCH (08:10)
[2022-04-08] MEDS: FERROUS SULFATE 325 MG TABLET.DR PO SCH ×2 (08:10→20:59)
[2022-04-08] MEDS: NACL 0.9% 1,000 ML IV SCH ×2 (08:11→17:29)
--- NOTE | 2022-04-08 08:50 | NUR ---
Called Dr. Ramirez for order for PICC line or midline due to hard IV stick
[2022-04-08] MEDS ORDERED: POTASSIUM CHLORIDE 20 MEQ TAB.PRT.SR PO ONE (09:45)
[2022-04-08] MEDS ORDERED: K PHOS 15 MM in NS 250 ML IV ONE (11:00)
[2022-04-08 11:08] VITALS: BP_SYST 98
--- NOTE | 2022-04-08 11:15 | NUR ---
CONSULTATION PAGED/CALLED Reason for Consultation: transaminitis Person Who was Notified: deshaun Consulting Physician: harika ambrose; said dr castorena is covering Ordering Physician: edgar mclaughlin
--- NOTE | 2022-04-08 11:26 | NUR ---
CONSULTATION PAGED/CALLED Reason for Consultation: ams Person Who was Notified: judy Consulting Physician: pavithra watts Ordering Physician: edgar mclaughlin
[2022-04-08 12:05] VITALS: BP_SYST 95
--- NOTE | 2022-04-08 14:23 | NUR ---
CONSULTATION PAGED/CALLED Reason for Consultation: resp failure Person Who was Notified: dr smith exchange Consulting Physician: faustino smith Ordering Physician: edgar mclaughlin
[2022-04-08 16:05] VITALS: BP_SYST 111
--- NOTE | 2022-04-08 16:27 | NUR ---
Patient claims to have allergic reaction from eating "something in the morning." Dr. Ramirez called.
[2022-04-08] MEDS ORDERED: DIPHENHYDRAMINE HCL 50 MG CAPSULE PO PRN (16:45)
[2022-04-08] MEDS ORDERED: DIPHENHYDRAMINE HCL 50 MG CAPSULE ONE (16:51)
[2022-04-08] MEDS ORDERED: *LOVENOX 1MG/KG Q12H/PHARMACY XX ONE (17:30)
--- NOTE | 2022-04-08 19:40 | NUR ---
Report given to help desk assistant RN for continuity of care. Patient stable.
[2022-04-08] MEDS: QUEtiapine FUMARATE 25 MG TABLET PO SCH (20:59)
[2022-04-08] MEDS: ATORVASTATIN 20 MG TABLET PO SCH (20:59)
[2022-04-08] MEDS: POTASSIUM CHLORIDE 20 MEQ TAB.PRT.SR PO SCH (20:59)
[2022-04-08] MEDS ORDERED: ENOXAPARIN SODIUM 80 MG/0.8 ML SYRINGE SUBCUT SCH (21:00)
[2022-04-08] MEDS: traZODone HCL 50 MG TABLET (DESYREL) PO SCH (21:00)
[2022-04-08] MEDS: AMITRIPTYLINE HCL 25 MG TABLET (ELAVIL) PO SCH (21:08)
[2022-04-08] MEDS: DULoxetine HCL 30 MG CAPSULE.DR (CYMBALTA) PO SCH (21:08)
[2022-04-08] MEDS: LORazepam 1 MG TABLET PO SCH (21:10)
[2022-04-09] VITALS (18 sets, daily range): BP systolic 88–134
--- NOTE | 2022-04-09 01:06 | NUR ---
Shift Summary: patient is AAOX4. vitals are stable. patient updated on plan of care for the evening. patient states she has no qeustions or concerns at this time. will continue to monitor patient. call light within reach, bed set to low, locked, and alarm on. q2h turns initiated.
[2022-04-09] MEDS: NACL 0.9% 1,000 ML IV SCH ×3 (04:17→22:49)
[2022-04-09] MEDS: FUROSEMIDE 80 MG TABLET PO SCH ×2 (06:03→10:09)
[2022-04-09] MEDS: SUCRALFATE 1 GM TABLET PO SCH ×4 (06:03→21:22)
[2022-04-09 06:44] LABS: BASOPHILS % (AUTO) 0.2 % (0.0-2.0); EOSINOPHILS % (AUTO) 0.1 % (0.0-4.0); HEMATOCRIT 25.3 % (36-48); HEMOGLOBIN 8.4 g/dL (12.0-16.0); LYMPHOCYTES # (AUTO) 0.4 K/uL (1.0-5.5); LYMPHOCYTES % (AUTO) 6.8 % (20.5-51.5); MEAN CORPUSCULAR HEMOGLOBIN 29 pg (27-31); MEAN CORPUSCULAR HGB CONC 33 % (32-36); MEAN CORPUSCULAR VOLUME 86 fL (79.0-98.0); MONOCYTES # (AUTO) 0.2 K/uL (0.0-1.0); MONOCYTES % (AUTO) 3.5 % (1.7-9.3); NEUTROPHILS # (AUTO) 4.9 K/uL (1.8-7.7); NEUTROPHILS % (AUTO) 89.4 % (40.0-70.0); PLATELET COUNT (AUTO) 83 K/uL (130-430); RED BLOOD CELL COUNT(AUTO) 2.93 MIL/uL (4.2-6.2); RED CELL DISTRIBUTION WIDTH 15.6 % (9.0-15.0); WHITE BLOOD COUNT (AUTO) 5.5 K/uL (4.8-10.8)
[2022-04-09 07:50] LABS: CREATININE 1.18 mg/dL (0.55-1.30)
[2022-04-09] MEDS: metFORMIN HCL 500 MG TABLET PO SCH ×2 (08:00→17:59)
[2022-04-09] MEDS: CALCIUM CARBONATE/VITAMIN D3 1 TAB TABLET PO SCH (09:37)
[2022-04-09] MEDS: GABAPENTIN 300 MG CAPSULE PO SCH ×3 (09:37→21:00)
[2022-04-09] MEDS: PIOGLITAZONE HCL 15 MG TABLET PO SCH (09:37)
[2022-04-09] MEDS: DOXYCYCLINE HYCLATE 100 MG CAPSULE PO SCH (09:37)
[2022-04-09] MEDS: MORPHINE SULFATE 30 MG TABLET.SA PO SCH ×2 (09:38→21:00)
[2022-04-09] MEDS: PANTOPRAZOLE SODIUM 40 MG TAB PO SCH (09:39)
[2022-04-09] MEDS: LOSARTAN POTASSIUM 50 MG TABLET (COZAAR) PO SCH (09:40)
[2022-04-09] MEDS: VITAMIN B COMPLEX 1 CAP/TAB PO SCH (09:41)
[2022-04-09] MEDS: TOPIRAMATE 100 MG TABLET(Topamax) PO SCH ×3 (09:41→21:00)
[2022-04-09] MEDS: FERROUS SULFATE 325 MG TABLET.DR PO SCH ×2 (09:41→21:00)
[2022-04-09] MEDS: POTASSIUM CHLORIDE 20 MEQ TAB.PRT.SR PO SCH (09:43)
[2022-04-09] MEDS: ASCORBIC ACID 500 MG TABLET PO SCH (09:43)
[2022-04-09] MEDS: MULTIVITS,CA,MINERALS/IRON/FA 1 TABLET PO SCH (09:43)
--- NOTE | 2022-04-09 10:42 | NUR ---
Report to Dr. Zuleima Ramirez regarding heparin DC and lovenox high dose ordered by Dr. Robertson. Also reported latest potassium level to Dr. Ramirez.
[2022-04-09] MEDS ORDERED: KCL 40 mEq in 100 mL (PREMIX) 100 ML IV ONE ×2 (11:00→11:02)
[2022-04-09] MEDS ORDERED: APIXABAN 2.5 MG TABLET PO ONE (11:30)
[2022-04-09] MEDS ORDERED: POTASSIUM CHLORIDE 20 mEq in 100 mL (PREMIX) 100 ML x 2 doses IV SCH (11:30)
--- NOTE | 2022-04-09 11:47 | NUR ---
Spoke with Dr. Veras regarding patient. Order to give prostat protein supplements.
[2022-04-09] MEDS ORDERED: *LOVENOX 1MG/KG Q12H/PHARMACY XX ONE (12:15)
--- NOTE | 2022-04-09 12:22 | NUR ---
CONSULTATION PAGED: PRIORITY: ROUTINE REASON FOR CONSULTATION:SEPSIS WAS CONSULT CALLED:Y PERSON WHO WAS NOTIFIED:ADRIAN CONSULTING PHYSICIAN:CEDRIC FIGUEROA CRITICAL POWER TECHNICIAN SPECIALTY:INFECTIOUS DISEASE CRITICAL POWER TECHNICIAN PHONE NUMBER:[phone] REQUESTING PHYSIC ESA:NELLA SOLER
--- NOTE | 2022-04-09 12:30 | NUR ---
Recd pt from MST to ICU 6 via bed, connected to compliance monitor, ST at 120, BP 92/40, 1Liter NS bolus infusing, Rt arm midline in place, patent w/o signs of infiltration. Assessment done and charted. Continue to monitor pt closely.
--- NOTE | 2022-04-09 12:30 | NUR ---
Patient received in bed appearing lethargic. Vital signs checked. Blood pressure 70/49. SISSY Eaton called to bedside. Order for bolus of NS. Transfer to ICU. Patient was repositioned and vital signs rechecked and was 90/47. Patient was still lethargic. Patient transported to ICU with heart monitor and oxygen and IV meds. Report given to ICU nurse. Belongings transferred to patient as well.
[2022-04-09 12:32] LABS: ALBUMIN 1.2 g/dL (3.4-4.8); CREATININE 1.08 mg/dL (0.55-1.30); TOTAL BILIRUBIN 1.8 mg/dL (0.0-1.0)
--- NOTE | 2022-04-09 13:30 | NUR ---
BP 88/38, after bolus, started levophed gtt per MD order.
[2022-04-09] MEDS ORDERED: NOREPINEPHRINE 4 MG/4 ML VIAL IV ONE (13:47)
[2022-04-09] MEDS: NOREPINEPHRINE BITARTRATE 8 MG in NS 242 ML IV PRN (13:51)
[2022-04-09 13:53] LABS: BASOPHILS % (AUTO) 0.2 % (0.0-2.0); EOSINOPHILS % (AUTO) 0.3 % (0.0-4.0); HEMATOCRIT 25.4 % (36-48); HEMOGLOBIN 8.4 g/dL (12.0-16.0); LYMPHOCYTES # (AUTO) 0.4 K/uL (1.0-5.5); MEAN CORPUSCULAR HEMOGLOBIN 29 pg (27-31); MEAN CORPUSCULAR HGB CONC 33 % (32-36); MEAN CORPUSCULAR VOLUME 87 fL (79.0-98.0); MONOCYTES # (AUTO) 0.3 K/uL (0.0-1.0); MONOCYTES % (AUTO) 4.6 % (1.7-9.3); NEUTROPHILS # (AUTO) 5.5 K/uL (1.8-7.7); NEUTROPHILS % (AUTO) 87.9 % (40.0-70.0); PLATELET COUNT (AUTO) 73 K/uL (130-430); RED BLOOD CELL COUNT(AUTO) 2.93 MIL/uL (4.2-6.2); RED CELL DISTRIBUTION WIDTH 15.8 % (9.0-15.0); WHITE BLOOD COUNT (AUTO) 6.3 K/uL (4.8-10.8)
--- NOTE | 2022-04-09 13:59 | NUR ---
CONSULTATION PAGED: PRIORITY: ROUTINE REASON FOR CONSULTATION:PARALYTUC ILEUS WAS CONSULT CALLED:Y PERSON WHO WAS NOTIFIED:ADRIAN CONSULTING PHYSICIAN: HVAC TECHNICIAN SPECIALTY:GI HVAC TECHNICIAN PHONE NUMBER:[phone] REQUESTING PHYSIC ESA:JORDON TAVARES
[2022-04-09] MEDS ORDERED: GLUCOSE (DEXTROSE) ORAL GEL -Adults PO PRN (14:00)
[2022-04-09] MEDS ORDERED: SODIUM POLYSTYRENE SULFONATE 15 GM/60 ML UDBTL PO ONE (14:00)
[2022-04-09] MEDS ORDERED: D5W 1,000 ML IV PRN (14:00)
--- NOTE | 2022-04-09 14:02 | NUR ---
Shaila Boyd, patient's son, notified regarding transfer to ICU
[2022-04-09] MEDS ORDERED: DEXTROSE 50% JECT 50 ML DISP.SYRIN ONE (14:07)
[2022-04-09 14:08] LABS: INR 1.4 (0.8-1.2); PROTHROMBIN TIME 14.6 SECS (9.5-12.5)
--- NOTE | 2022-04-09 14:23 | NUR ---
CONSULTATION PAGED: PRIORITY: ROUTINE REASON FOR CONSULTATION:ELECTROLYTE IMBALANCE WAS CONSULT CALLED:Y PERSON WHO WAS NOTIFIED:ADRIAN CONSULTING PHYSICIAN:PARDEEP MANCILLA RECREATION CLERK SPECIALTY:NEPHRO RECREATION CLERK PHONE NUMBER:[phone] REQUESTING PHYSIC ESA:SHIRA RUVALCABA NP
--- NOTE | 2022-04-09 14:53 | NUR ---
Dietitian Recommendations * Continue [facility] diet, Prosource TID, Banana Flakes daily (protein supplement yields 180 kcal/day, 45 gm protein/day) * Encourage good PO intakes * Assess for safety of PO intakes d/t lethargy LP, MS, RD Please refer to Nutrition Assessment for details. Addendum: 04/09/22 at [address] Amended: Links added.
[2022-04-09 16:28] LABS: CREATININE 1.56 mg/dL (0.55-1.30)
[2022-04-09 16:31] LABS: CALCIUM 6.8 mg/dL (8.4-11.0)
[2022-04-09 16:46] LABS: PHOSPHORUS 3.3 mg/dL (2.7-4.5)
[2022-04-09] MEDS: PIPERACILLIN/TAZO 3.375/DEX-IS 50 ML IV SCH (18:05)
[2022-04-09] MEDS ORDERED: CALCIUM GLUCONATE 1 GM in NS 100 ML IV ONE (18:45)
[2022-04-09] MEDS ORDERED: MAGNESIUM SULFATE 50 ML IV ONE (18:45)
[2022-04-09] MEDS ORDERED: CALCIUM GLUCONATE 1 GM/10 ML VIAL ONE (19:55)
--- NOTE | 2022-04-09 20:30 | NUR ---
LAB CALLED MICROBIOLOGY BLOOD C/S WITH PRELIMINARY RESULTS GRAM POSITIVE COCCI IN CHAINS, PAGED DR. DELAROSA AWAITING TO CALL BACK
[2022-04-09] MEDS: QUEtiapine FUMARATE 25 MG TABLET PO SCH (21:00)
[2022-04-09] MEDS: LORazepam 1 MG TABLET PO SCH (21:00)
[2022-04-09] MEDS: ATORVASTATIN 20 MG TABLET PO SCH (21:00)
[2022-04-09] MEDS ORDERED: APIXABAN 2.5 MG TABLET PO SCH (21:00)
[2022-04-09] MEDS: traZODone HCL 50 MG TABLET (DESYREL) PO SCH (21:00)
[2022-04-09] MEDS: DULoxetine HCL 30 MG CAPSULE.DR (CYMBALTA) PO SCH (21:00)
[2022-04-09] MEDS: AMITRIPTYLINE HCL 25 MG TABLET (ELAVIL) PO SCH (21:00)
--- NOTE | 2022-04-09 21:00 | NUR ---
ALL MEDS HELD NOT GIVEN PATIENT LETHARGIC AND NOT FOLLOWING GOOD COMMANDS TALKING BUT SLEEPY MOST OF THE TIME.
--- NOTE | 2022-04-09 21:00 | NUR ---
BS-58 D50 25GMS IVP GIVEN, RECHECKED BS-122
--- NOTE | 2022-04-09 21:30 | NUR ---
CALLED PERSONAL LINES SALES REP JORDON SILVA MADE HIM AWARE PATIENT IS DNR /DNI HE SAID YES HE SPOKE TO THE SON CATARINO, SPOKE TO PATIENT AND ASKED HER SHE SAID SHE HAS ADVANCE DIRECTIVE AT HOME SHE CONFIRM SHE S DNR/DNI WITNESS WITH ARTI RED.
[2022-04-09] MEDS: DEXTROSE 50% JECT 50 ML DISP.SYRIN IVP PRN (21:57)
--- NOTE | 2022-04-09 22:38 | NUR ---
CALLED MARIA EUGENIA RUVALCABA AGAIN FOR BLD C/S RESULTS ADVISED TO START IV VANCOMYCIN SEE CPOE.
[2022-04-09] MEDS ORDERED: VANCOMYCIN HCL 1 GM/NS PREMIX 250 ML IV ONE (22:45)
[2022-04-09] MEDS ORDERED: VANCOMYCIN HCL 1000 MG/VIAL IV ONE (23:53)
[2022-04-10] VITALS (23 sets, daily range): BP systolic 94–125
[2022-04-10] MEDS: PIPERACILLIN/TAZO 3.375/DEX-IS 50 ML IV SCH ×4 (00:09→23:48)
[2022-04-10] MEDS: metFORMIN HCL 500 MG TABLET PO SCH ×2 (08:00→17:14)
[2022-04-10 08:09] LABS: ALBUMIN 1.5 g/dL (3.4-4.8); CREATININE 1.91 mg/dL (0.55-1.30); PHOSPHORUS 3.4 mg/dL (2.7-4.5); TOTAL BILIRUBIN 3.1 mg/dL (0.0-1.0)
[2022-04-10 08:24] LABS: CALCIUM 6.3 mg/dL (8.4-11.0)
--- NOTE | 2022-04-10 08:29 | NUR ---
RECD pt. Sleepy but arousable to verbal stimulus. ST @ 117, and pt denies CP and SOB. IVF @ 100ml/hr. Abdomen distended. Obtain order for NG tube. NG tube inserted per protocol. Placement verified and awaiting chest X-ray to be done.
[2022-04-10 08:35] LABS: BASOPHILS # (AUTO) 0.1 K/uL (0.0-0.2); EOSINOPHILS # (AUTO) 0.2 K/uL (0.0-0.4); EOSINOPHILS % (AUTO) 2.1 % (0.0-4.0); HEMATOCRIT 27.1 % (36-48); HEMOGLOBIN 8.9 g/dL (12.0-16.0); LYMPHOCYTES # (AUTO) 0.5 K/uL (1.0-5.5); MEAN CORPUSCULAR HEMOGLOBIN 29 pg (27-31); MEAN CORPUSCULAR HGB CONC 33 % (32-36); MEAN CORPUSCULAR VOLUME 88 fL (79.0-98.0); MONOCYTES # (AUTO) 0.3 K/uL (0.0-1.0); MONOCYTES % (AUTO) 3.5 % (1.7-9.3); NEUTROPHILS # (AUTO) 8.4 K/uL (1.8-7.7); NEUTROPHILS % (AUTO) 88.4 % (40.0-70.0); PLATELET COUNT (AUTO) 93 K/uL (130-430); RED BLOOD CELL COUNT(AUTO) 3.09 MIL/uL (4.2-6.2)
[2022-04-10] MEDS: MORPHINE SULFATE 30 MG TABLET.SA PO SCH ×2 (08:36→20:45)
[2022-04-10] MEDS: PIOGLITAZONE HCL 15 MG TABLET PO SCH (08:36)
[2022-04-10 08:39] LABS: WHITE BLOOD COUNT (AUTO) 9.5 K/uL (4.8-10.8)
[2022-04-10] MEDS: NACL 0.9% 1,000 ML IV SCH (08:50)
[2022-04-10] MEDS ORDERED: MAGNESIUM SULFATE 50 ML IV ONE (09:00)
[2022-04-10] MEDS: FERROUS SULFATE 325 MG TABLET.DR PO SCH ×2 (09:15→20:45)
[2022-04-10] MEDS: TOPIRAMATE 100 MG TABLET(Topamax) PO SCH ×3 (09:15→20:45)
[2022-04-10] MEDS: ASCORBIC ACID 500 MG TABLET PO SCH (09:15)
[2022-04-10] MEDS: GABAPENTIN 300 MG CAPSULE PO SCH ×3 (09:15→20:45)
[2022-04-10] MEDS: PANTOPRAZOLE SODIUM 40 MG TAB PO SCH (09:15)
[2022-04-10] MEDS: CALCIUM CARBONATE/VITAMIN D3 1 TAB TABLET PO SCH (09:16)
[2022-04-10] MEDS: SUCRALFATE 1 GM TABLET PO SCH ×4 (09:22→20:44)
[2022-04-10] MEDS: MULTIVITS,CA,MINERALS/IRON/FA 1 TABLET PO SCH (09:22)
[2022-04-10] MEDS: VITAMIN B COMPLEX 1 CAP/TAB PO SCH (09:22)
[2022-04-10] MEDS ORDERED: CALCIUM GLUCONATE 2 GM in NS 100 ML IV ONE (09:30)
--- NOTE | 2022-04-10 09:43 | NUR ---
SPOKE WITH JACKIE AT DOCTOR'S OFFICE REQUESTING ORDERS FROM DR. NEAL.
[2022-04-10] MEDS ORDERED: MINERAL OIL 30 ML UDC PO ONE (11:30)
[2022-04-10] MEDS ORDERED: APIXABAN 2.5 MG TABLET PO ONE (11:45)
[2022-04-10] MEDS ORDERED: *HEPARIN PER PHARMACY XX ONE (12:30)
[2022-04-10] MEDS ORDERED: DIATR MEGLU/DIATRIZ SOD 30 ML SOLUTION PO ONE ×2 (12:51→14:48)
--- NOTE | 2022-04-10 12:52 | NUR ---
SPOKE WITH CHELSEY REQUESTING ORDERS FROM DR. MCDANIELS.
[2022-04-10] MEDS: D5/0.45 NS 1,000 ML IV SCH ×2 (13:30→23:48)
[2022-04-10] MEDS ORDERED: MAGNESIUM SULFATE 1 GM/2 ML VIAL IVP ONE (14:00)
--- NOTE | 2022-04-10 14:20 | NUR ---
ngt contrast po given per order. ngt clamped. awaiting for radiology for ct of abd.
--- NOTE | 2022-04-10 14:21 | NUR ---
pt agitated, attempting to pull ngt, obtained order for restraints. per protocol.
--- NOTE | 2022-04-10 14:44 | NUR ---
Dr Archer at the bedside, assessing pt, reviewing labs.
--- NOTE | 2022-04-10 14:51 | NUR ---
SPOKE WITH JACKIE REQUESTING ORDERS FROM BOTH DR. LEHMAN AND DR. KRAMER.
--- NOTE | 2022-04-10 15:00 | NUR ---
CT OF ABD/PELVIS WITH PO/NGT CONTRAST DONE, PT TOLERATED WELL. ESCORTED BACK WITH PROFESSOR OF VISUAL ARTS.
--- NOTE | 2022-04-10 16:00 | NUR ---
PTT 52.1, started heparin gtt at 1200U/HR per md order. will re-check after 6hrs per md order
[2022-04-10 16:08] LABS: INR 1.3 (0.8-1.2); PROTHROMBIN TIME 13.6 SECS (9.5-12.5)
--- NOTE | 2022-04-10 18:16 | NUR ---
Notified Dr Nghia Guillen (retail training manager) that pt only had 250ml urine output for my shift, obtained order to give NS 500ml bolus and monitor pt afterwards, will endorse to night nurse.
[2022-04-10] MEDS ORDERED: NS 500 ML IV ONE (18:30)
--- NOTE | 2022-04-10 18:53 | NUR ---
Pt lethargic most of the day, only agitated with inserting ngt. after a few minutes, pt lethargic. restraints not required during the day shift.
[2022-04-10] MEDS ORDERED: VANCOMYCIN HCL 1,500 MG in NS 250 ML IV SCH (20:00)
[2022-04-10] MEDS: LORazepam 1 MG TABLET PO SCH (20:44)
[2022-04-10] MEDS: DULoxetine HCL 30 MG CAPSULE.DR (CYMBALTA) PO SCH (20:44)
[2022-04-10] MEDS: QUEtiapine FUMARATE 25 MG TABLET PO SCH (20:45)
[2022-04-10] MEDS: AMITRIPTYLINE HCL 25 MG TABLET (ELAVIL) PO SCH (20:45)
[2022-04-10] MEDS: traZODone HCL 50 MG TABLET (DESYREL) PO SCH (20:45)
[2022-04-10] MEDS: ATORVASTATIN 20 MG TABLET PO SCH (20:45)
[2022-04-10] MEDS ORDERED: APIXABAN 2.5 MG TABLET PO SCH (21:00)
--- NOTE | 2022-04-10 23:45 | NUR ---
6401 LAB CALLED FOR CRITICAL RESULTS PTT->150 HEPARIN DRIP STOP FOR NOW RPT PTT LAB DRAW AT 0043
[2022-04-11] VITALS (26 sets, daily range): BP systolic 100–144
[2022-04-11] MEDS: NOREPINEPHRINE BITARTRATE 8 MG in NS 242 ML IV PRN (01:35)
--- NOTE | 2022-04-11 01:40 | NUR ---
PTT-67.6 WITHIN THERAPEUTIC RANGE HEPARIN DRIP STARTED PER PROTOCOL REDUCED TO 300UNITS PER PROTOCOL PT IS 132 KG. RESUME HEPARIN GTT TO 900 UNITS.
--- NOTE | 2022-04-11 03:40 | NUR ---
Pt report received from NEDA Rick. Pt resting quietly, respirations even and non-labored with O2 at 4 LPM/NC. Levophed drip at 0.04 mcg/kg/min, Heparin drip at 900 Units/hr and D5 1/2 NS at 100 mL/hr to RAQUEL PICC. F/C draining yellow urine. VSS, NAD.
[2022-04-11] MEDS: PIPERACILLIN/TAZO 3.375/DEX-IS 50 ML IV SCH (06:41)
[2022-04-11] MEDS: SUCRALFATE 1 GM TABLET PO SCH ×4 (06:42→21:00)
[2022-04-11] MEDS: D5/0.45 NS 1,000 ML IV SCH ×2 (06:58→20:16)
--- NOTE | 2022-04-11 07:24 | NUR ---
PHYSICAL THERAPY IS ON HOLD DUE TO THE PATIENT'S TRANSFER TO THE ICU. AWAIT NEW ORDERS.
--- NOTE | 2022-04-11 07:31 | NUR ---
Pt report given to oncoming RN. Pt alert, responsive, no needs verbalized. Levophed drip at 0.04 mcg/kg/min, Heparin drip at 900 Units/hr and D5 1/2 NS at 100 mL/hr to RAQUEL PICC. JEANA ROSALES.
--- NOTE | 2022-04-11 08:00 | NUR ---
Opening Note: Patient is a 51 year old female admitted to [place] on 04/06 for a CC: of mechanical fall. Patient was transferring bedside commode to chair when she fell. She also had right leg swelling with a DVT 04/06. PMHX: multiple back surgeries, asthma, cervical cancer, CAD, CHF, DM, HTN, seizure disorder, adrenal mass, headaches-migraines, DVT, COPD, chronic RF, chronic pain, GERD, hyperlipidemia, anemia, cholecystomy, appendectomy. Patient has a RAQUEL picc- intact, patent, dressing CDI. IVF: levophed 0.04mcg, D51/2 at 100cc/hr, heparin 900units. Pending PTT from 0600 blood draw. Patient is alert and oriented x2 confusion noted. NSR on tele monitor at this time HR 106bmp. 4LNC saturating 98%. Murillo in place and draining via gravity. CCDD- but per report patient not able to eat, only given sips of water. ACHS accuchecks. Right and left heel wounds, cellulitis noted. Abdominal CT yesterday showing pna and ileus. Will update family prn throughout shift.
[2022-04-11] MEDS: VITAMIN B COMPLEX 1 CAP/TAB PO SCH (08:57)
[2022-04-11] MEDS: MORPHINE SULFATE 30 MG TABLET.SA PO SCH ×2 (08:58→21:00)
[2022-04-11] MEDS: MULTIVITS,CA,MINERALS/IRON/FA 1 TABLET PO SCH (08:59)
[2022-04-11] MEDS: metFORMIN HCL 500 MG TABLET PO SCH ×2 (08:59→17:41)
[2022-04-11] MEDS: PANTOPRAZOLE SODIUM 40 MG TAB PO SCH (09:00)
[2022-04-11] MEDS: FERROUS SULFATE 325 MG TABLET.DR PO SCH ×2 (09:00→21:00)
[2022-04-11] MEDS: ASCORBIC ACID 500 MG TABLET PO SCH (09:00)
[2022-04-11] MEDS: TOPIRAMATE 100 MG TABLET(Topamax) PO SCH ×3 (09:00→21:00)
[2022-04-11] MEDS: CALCIUM CARBONATE/VITAMIN D3 1 TAB TABLET PO SCH (09:00)
[2022-04-11] MEDS: GABAPENTIN 300 MG CAPSULE PO SCH ×3 (09:00→21:00)
[2022-04-11] MEDS: PIOGLITAZONE HCL 15 MG TABLET PO SCH (09:00)
[2022-04-11 09:58] LABS: BASOPHILS # (AUTO) 0.1 K/uL (0.0-0.2); BASOPHILS % (AUTO) 0.3 % (0.0-2.0); EOSINOPHILS # (AUTO) 0.1 K/uL (0.0-0.4); EOSINOPHILS % (AUTO) 0.8 % (0.0-4.0); HEMATOCRIT 31.9 % (36-48); LYMPHOCYTES # (AUTO) 1.3 K/uL (1.0-5.5); LYMPHOCYTES % (AUTO) 8.1 % (20.5-51.5); MEAN CORPUSCULAR HEMOGLOBIN 28 pg (27-31); MEAN CORPUSCULAR HGB CONC 31 % (32-36); MEAN CORPUSCULAR VOLUME 90 fL (79.0-98.0); MONOCYTES # (AUTO) 0.5 K/uL (0.0-1.0); MONOCYTES % (AUTO) 3.3 % (1.7-9.3); NEUTROPHILS # (AUTO) 13.9 K/uL (1.8-7.7); NEUTROPHILS % (AUTO) 87.5 % (40.0-70.0); PLATELET COUNT (AUTO) 95 K/uL (130-430); RED BLOOD CELL COUNT(AUTO) 3.56 MIL/uL (4.2-6.2); RED CELL DISTRIBUTION WIDTH 16.5 % (9.0-15.0); WHITE BLOOD COUNT (AUTO) 15.8 K/uL (4.8-10.8)
[2022-04-11] MEDS ORDERED: MINERAL OIL 30 ML UDC PO ONE (10:00)
[2022-04-11 10:20] LABS: CALCIUM 7.8 mg/dL (8.4-11.0); CREATININE 2.2 mg/dL (0.55-1.30)
[2022-04-11 10:25] LABS: ALBUMIN 1.6 g/dL (3.4-4.8); TOTAL BILIRUBIN 3.8 mg/dL (0.0-1.0)
[2022-04-11 10:27] LABS: CALCIUM 7.8 mg/dL (8.4-11.0)
[2022-04-11] MEDS: AMPICILLIN SODIUM 2 GM in NS 100 ML IV SCH ×2 (11:38→20:22)
[2022-04-11] MEDS ORDERED: CLINDAMYCIN 900 MG in D5W 100 ML IV SCH (14:00)
[2022-04-11] MEDS: CLINDAMYCIN 900 mg/50mL D5W 50 ML IV SCH ×2 (14:16→23:21)
[2022-04-11] MEDS: HEPARIN 25,000 UNITS in 250 ML PREMIX IV PRN (14:37)
--- NOTE | 2022-04-11 16:49 | NUR ---
CM requesting IVC filter order to transfer patient out: Dr mclaughlin called, to see if IVC filter needs to be place and if so does he want me to place CM order for transfer. Aspenid-19 swap PCR complete and sent to lab. Addendum: 04/11/22 at 1706 by Eighteen Artur, NEDA RED spoke with PCP, at this time no disciplines have talked to him regarding filter placement, he will hold off for now.
--- NOTE | 2022-04-11 16:49 | NUR ---
Spoke with Michelle requesting orders from Dr. Ramirez
[2022-04-11] MEDS: ALBUMIN HUMAN 25% 100 ML IV SCH ×2 (17:41→21:40)
--- NOTE | 2022-04-11 19:08 | NUR ---
Endorsed to Noc NEDA urbano: paged Dr Hobson, she is aware to report ABG. aware of new restraint order. patient is DNR, not DNI. called Roofie to speak with him regarding DNI decision he said Angelica regarding DNI. He agrees to intubation if the patient needs it.
[2022-04-11] MEDS: DULoxetine HCL 30 MG CAPSULE.DR (CYMBALTA) PO SCH (21:00)
[2022-04-11] MEDS: LORazepam 1 MG TABLET PO SCH (21:00)
[2022-04-11] MEDS: QUEtiapine FUMARATE 25 MG TABLET PO SCH (21:00)
[2022-04-11] MEDS: AMITRIPTYLINE HCL 25 MG TABLET (ELAVIL) PO SCH (21:00)
[2022-04-11] MEDS: traZODone HCL 50 MG TABLET (DESYREL) PO SCH (21:00)
[2022-04-11] MEDS: ATORVASTATIN 20 MG TABLET PO SCH (21:00)
[2022-04-12] VITALS (30 sets, daily range): BP systolic 97–126
[2022-04-12] MEDS: ALBUMIN HUMAN 25% 100 ML IV SCH ×3 (01:18→23:38)
[2022-04-12] MEDS: AMPICILLIN SODIUM 2 GM in NS 100 ML IV SCH ×3 (03:54→19:41)
--- NOTE | 2022-04-12 04:52 | NUR ---
PTT 94.2 HEPARIN HELD PER PROTOCOL.
[2022-04-12] MEDS: CLINDAMYCIN 900 mg/50mL D5W 50 ML IV SCH ×3 (05:14→20:57)
[2022-04-12 06:59] LABS: BASOPHILS # (AUTO) 0.1 K/uL (0.0-0.2); BASOPHILS % (AUTO) 0.3 % (0.0-2.0); EOSINOPHILS # (AUTO) 0.5 K/uL (0.0-0.4); EOSINOPHILS % (AUTO) 2.6 % (0.0-4.0); HEMATOCRIT 24.9 % (36-48); LYMPHOCYTES # (AUTO) 1.6 K/uL (1.0-5.5); LYMPHOCYTES % (AUTO) 7.9 % (20.5-51.5); MEAN CORPUSCULAR HEMOGLOBIN 29 pg (27-31); MEAN CORPUSCULAR HGB CONC 32 % (32-36); MEAN CORPUSCULAR VOLUME 89 fL (79.0-98.0); MONOCYTES # (AUTO) 1.1 K/uL (0.0-1.0); MONOCYTES % (AUTO) 5.5 % (1.7-9.3); NEUTROPHILS # (AUTO) 17.5 K/uL (1.8-7.7); NEUTROPHILS % (AUTO) 83.7 % (40.0-70.0); PLATELET COUNT (AUTO) 75 K/uL (130-430); RED BLOOD CELL COUNT(AUTO) 2.79 MIL/uL (4.2-6.2); RED CELL DISTRIBUTION WIDTH 16.8 % (9.0-15.0); WHITE BLOOD COUNT (AUTO) 20.9 K/uL (4.8-10.8)
--- NOTE | 2022-04-12 07:20 | NUR ---
Opening Note: Patient is a 51 year old female admitted to [place] on 04/06 for a CC: of mechanical fall. Patient was transferring bedside commode to chair when she fell. She also had right leg swelling with a DVT 04/06. PMHX: multiple back surgeries, asthma, cervical cancer, CAD, CHF, DM, HTN, seizure disorder, adrenal mass, headaches-migraines, DVT, COPD, chronic RF, chronic pain, GERD, hyperlipidemia, anemia, cholecystomy, appendectomy. Patient has a RAQUEL picc- intact, patent, dressing CDI. IVF: levophed 0.01mcg, D51/2 at 50cc/hr, heparin 700units- last PTT resulted and change was made by TERRELL RN- next PTT at 1200. Patient is alert and oriented x1, confused, lethargic at times. NSR on tele monitor at this time HR 80bmp. 12LNC saturating 98%. Murillo in place and draining via gravity. NPO- at this time. ACHS accuchecks. Right and left heel wounds, cellulitis noted. Abdominal CT yesterday showing pna and ileus. called sarah this am, he wants patient intubated. pending now calling er doc
[2022-04-12 07:30] LABS: ALBUMIN 2.2 g/dL (3.4-4.8); BILIRUBIN,DIRECT 3.7 mg/dL (0.0-0.3); PHOSPHORUS 4.2 mg/dL (2.7-4.5); TOTAL BILIRUBIN 4.1 mg/dL (0.0-1.0)
--- NOTE | 2022-04-12 07:35 | NUR ---
RT NOTES Found pt with abnormal breathin pattern, per RN pt is also unresponsive. Rn confirmed pt's ok for intubation. Will put pt on bipap while awaiting dr's order.
--- NOTE | 2022-04-12 07:37 | NUR ---
SPOKE WITH JOSE REQUESTING ORDERS FROM DR. PERALTA.
--- NOTE | 2022-04-12 07:40 | NUR ---
RT NOTES Per RN, dr Hobson stated to skip bipap and intubate pt. ER is being contacted, while preparing for intubation.
--- NOTE | 2022-04-12 07:55 | NUR ---
RT NOTES Pt was intubated by dr Siegel with 7.5 ETT secured at 21cm lipline. CO2 changed to yellow bilat. b/s/chest rise noted. Placed pt in vent AC 16 450 +5 100%. Sputum collected and endorsed to Rn.
--- NOTE | 2022-04-12 07:56 | NUR ---
Intubation Note: Spoke with Dr. Hobson- requested ABG due to the patients declining mental status upon AM assessment. He wanted the patient intubated due to her status during rounds yesterday and placed on venti mask around 184. Dr. Livingston was called from E.R.- patient was intubated at 0756- with 20mg etomidate. ETT: 7.5/21cm. Vent: A/C VC 16, 450, +5, 100% OGT placed, bile coming out upon placement- OGT to LIS. Sputum cultures sent, cxr- showing placement. Called back with new ABG result s/p intubation: fio2 down to 60%
[2022-04-12] MEDS ORDERED: PROPOFOL DRIP 100 ML IV ONE (08:06)
[2022-04-12] MEDS: MORPHINE SULFATE 30 MG TABLET.SA PO SCH (09:00)
[2022-04-12] MEDS: ASCORBIC ACID 500 MG TABLET PO SCH (09:27)
[2022-04-12] MEDS: VITAMIN B COMPLEX 1 CAP/TAB PO SCH (09:27)
[2022-04-12] MEDS: FERROUS SULFATE 325 MG TABLET.DR PO SCH (09:27)
[2022-04-12] MEDS: TOPIRAMATE 100 MG TABLET(Topamax) PO SCH (09:27)
[2022-04-12] MEDS: SUCRALFATE 1 GM TABLET PO SCH (09:28)
[2022-04-12] MEDS: GABAPENTIN 300 MG CAPSULE PO SCH (09:28)
[2022-04-12] MEDS: PANTOPRAZOLE SODIUM 40 MG TAB PO SCH (09:28)
[2022-04-12] MEDS: MULTIVITS,CA,MINERALS/IRON/FA 1 TABLET PO SCH (09:28)
[2022-04-12] MEDS: metFORMIN HCL 500 MG TABLET PO SCH (09:30)
[2022-04-12] MEDS: CALCIUM CARBONATE/VITAMIN D3 1 TAB TABLET PO SCH (09:31)
[2022-04-12] MEDS: PIOGLITAZONE HCL 15 MG TABLET PO SCH (09:31)
[2022-04-12] MEDS: PROPOFOL DRIP 100 ML IV PRN ×3 (09:41→18:33)
[2022-04-12] MEDS: MIDAZOLAM IN NACL,ISO-OSMOT/PF 100 ML IV PRN (09:41)
[2022-04-12 09:52] LABS: C-REACTIVE PROTEIN QUANT 19.2 mg/dL (0-0.5)
--- NOTE | 2022-04-12 10:08 | NUR ---
Spoke with Brady requesting orders from Dr. Hobson.
--- NOTE | 2022-04-12 10:25 | NUR ---
RT NOTES FIO2 TO 0.60 PER TITRATION AND ABG RESULT. RN AWARE.
[2022-04-12 10:47] LABS: CREATININE 2.55 mg/dL (0.55-1.30); TOTAL BILIRUBIN 4.6 mg/dL (0.0-1.0)
--- NOTE | 2022-04-12 11:41 | NUR ---
Nutrition F/U Admitting Diagnosis Mechanical fall, intractable pain Reviewed Pertinent Medical/Surgical Hx Medical Record Other- RN Medical History Comment: Per EMR review, 51 YOF who presented to the ER after a ground level fall while she was transferring from bedside commode to her chair. The pt was concerned about R leg swelling. Per IT SECURITY ADMINISTRATOR report, Pt transferred to ICU today w/ hypotension, hypokalemia, and septicemia w/ PE. PMH: asthma, cervical CA, CAD, CHF, DM, HTN, SD, adrenal mass, migraine headaches, DVT, COPD, chronic respiratory failure, chronic pain syndrome, GERD, HLD, and anemia 04/09: CT shows ileus and fatty liver. LFTS are elevated which could be d/t fatty liver/meds/sepsis, etc Subjective Information RD attended ICU rounds and s/w primary RN regarding the pt. Pt was found to have a DVT on her right leg. Pt was intubated today at 07:56 d/t respiratory failure. RN stated that propofol is running at 50 mcg, D5W @50mL/hr (both provide 1257 kcal). Levophed is running at 0.01 mcg. RN stated that pt has not had a BM yet. Pt does have a NGT for low wall suction, not for feeding at this point. RN attested to a large amount of gastric residuals coming up when NGT was placed and they want to hold off on feeding. RN verified a Ve of 7.32. Current Diet Order/Nutrition Support NPO x0 Patient/Significant Other Unable To Verbalize Education Provided Not Indicated NEW Pertinent Medications VIT B complex, theragran, VIT C, Lasix, Ca/VIT D, Levophed, D5NS@50mL/hr (provides 204 kcal), Clindamycin NEW Pertinent Labs Na 131 L, K 3.8 L, ALB 2.2 L, WBC 20.9 H (worsening), H/H 8.0/24.9 L Height (Feet) 5 feet Height (Inches) 6.00 inches Weight fluctuating since 04/06, likely pt stated her weight incorrectly 293 pounds/ 132.988 kg Body Mass Index 47.29 kg/m2 %IBW 225 [place]/Adjusted Body Weight 130#/59 kg. 171#/77.6 kg Recent Weight Change Unable to verify Weight Status Morbidly Obese Last BM Apr 08, 2022 x 2 Food Allergies Unable to verify Usual Diet At Home No diet guidelines per nursing nutritional screening Current % PO NPO NEW Estimated Energy Expenditure (kcals/day) 1967 kcal (PSU 2009 for ICU/Vented. MSJ 1967, Tmax 37.5, Ve 7.32) Estimated Protein Required (g/day) 89-118 (1.5-2 gm/kg IBW d/t ? 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 Expected Outcomes/Goals - Monitor advancement of diet, appetite, and PO intakes w/ goal of pt meeting >75% of estimated nutritional needs, labs trending WNL, normal GI function, and skin integrity/wt maintenance Dietitian Recommendations * Continue NPO for <3 days *When medically appropriate, advance to CLD or alternate means of nutrition * If patient becomes extubated, please revise nutritional needs Follow Up High Risk: F/U in 2-3days GS, MPH, RD
--- NOTE | 2022-04-12 11:43 | NUR ---
Spoke with Ester requesting orders from Dr. Archer.
--- NOTE | 2022-04-12 11:45 | NUR ---
Dietitian Recommendations * Continue NPO for <3 days *When medically appropriate, advance to CLD or alternate means of nutrition * If patient becomes extubated, please revise nutritional needs GS, MPH, RD Please refer to RD F/U for further details
--- NOTE | 2022-04-12 11:50 | NUR ---
RT NOTES FIO2 TO 0.50 PER TITRATION ORDER. WILL MONITOR PT
[2022-04-12] MEDS ORDERED: NACL 0.9% 1,000 ML IV ONE (12:00)
[2022-04-12 12:07] LABS: CALCIUM 6.7 mg/dL (8.4-11.0)
[2022-04-12 12:27] LABS: ERYTHROCYTE SEDIMENTATION RATE 8 MM/HR (0-20)
[2022-04-12] MEDS ORDERED: NS IV SCH (12:30)
[2022-04-12] MEDS ORDERED: DAPTOMYCIN IV SCH (12:30)
[2022-04-12] MEDS ORDERED: ETOMIDATE 20 MG/ 10 ML VIAL (AMIDATE) IVP ONE (12:47)
[2022-04-12] MEDS ORDERED: VECURONIUM BROMIDE 10 MG/VIAL (NORCURON) IV ONE (12:47)
[2022-04-12] MEDS ORDERED: ROCURONIUM BROMIDE 10 MG/ML (ZEMURON) IV ONE (12:47)
--- NOTE | 2022-04-12 13:33 | NUR ---
RT NOTES FIO2 TO 0.40 PER TITRATION ORDER
[2022-04-12] MEDS ORDERED: *CUBICIN 6 MG/KG Q48H/PHARMACY XX PRN (14:00)
--- NOTE | 2022-04-12 14:21 | NUR ---
SPOKE WITH FARAZ AT [employer] INSPECT[employer] FOLLOWING UP WITH ORDERS REQUEST MADE BY CARMELO.
[2022-04-12] MEDS ORDERED: DAPTOmycin 800 MG in NS 50 ML IV SCH (15:00)
[2022-04-12] MEDS: D5/0.45 NS 1,000 ML IV SCH (15:01)
[2022-04-12] MEDS ORDERED: ALBUMIN HUMAN 25% 100 ML IV SCH (18:00)
[2022-04-12] MEDS ORDERED: CALCIUM GLUCONATE 1 GM in NS 100 ML IV ONE (18:00)
[2022-04-12 20:16] LABS: ALBUMIN 1.9 g/dL (3.4-4.8); CALCIUM 7.7 mg/dL (8.4-11.0); CREATININE 2.87 mg/dL (0.55-1.30); TOTAL BILIRUBIN 4.9 mg/dL (0.0-1.0)
[2022-04-12] MEDS: ATORVASTATIN 20 MG TABLET NG SCH (20:57)
[2022-04-12] MEDS: DEXTROSE 50% JECT 50 ML DISP.SYRIN IVP PRN (23:37)
[2022-04-13] VITALS (29 sets, daily range): BP systolic 100–153
[2022-04-13] MEDS: D5/0.45 NS 1,000 ML IV SCH ×3 (00:28→17:08)
[2022-04-13] MEDS: MIDAZOLAM IN NACL,ISO-OSMOT/PF 100 ML IV PRN ×2 (02:35→22:28)
[2022-04-13] MEDS: ALBUMIN HUMAN 25% 100 ML IV SCH (03:13)
[2022-04-13] MEDS: AMPICILLIN SODIUM 2 GM in NS 100 ML IV SCH ×3 (03:47→20:12)
[2022-04-13] MEDS: CLINDAMYCIN 900 mg/50mL D5W 50 ML IV SCH ×3 (05:30→22:29)
[2022-04-13] MEDS: PROPOFOL DRIP 100 ML IV PRN ×3 (05:59→17:08)
[2022-04-13 07:36] LABS: BASOPHILS # (AUTO) 0.1 K/uL (0.0-0.2); BASOPHILS % (AUTO) 0.5 % (0.0-2.0); EOSINOPHILS # (AUTO) 0.1 K/uL (0.0-0.4); EOSINOPHILS % (AUTO) 0.6 % (0.0-4.0); HEMOGLOBIN 7.2 g/dL (12.0-16.0); MEAN CORPUSCULAR HEMOGLOBIN 30 pg (27-31); MEAN CORPUSCULAR HGB CONC 34 % (32-36); MEAN CORPUSCULAR VOLUME 89 fL (79.0-98.0); MONOCYTES # (AUTO) 0.4 K/uL (0.0-1.0); NEUTROPHILS # (AUTO) 11.7 K/uL (1.8-7.7); NEUTROPHILS % (AUTO) 81.9 % (40.0-70.0); PLATELET COUNT (AUTO) 64 K/uL (130-430); RED BLOOD CELL COUNT(AUTO) 2.41 MIL/uL (4.2-6.2); RED CELL DISTRIBUTION WIDTH 16.2 % (9.0-15.0); WHITE BLOOD COUNT (AUTO) 14.3 K/uL (4.8-10.8)
--- NOTE | 2022-04-13 07:53 | NUR ---
Opening Note: Patient is a 51 year old female admitted to [place] on 04/06 for a CC: of mechanical fall. Patient was transferring bedside commode to chair when she fell. She also had right leg swelling with a DVT 04/06. PMHX: multiple back surgeries, asthma, cervical cancer, CAD, CHF, DM, HTN, seizure disorder, adrenal mass, headaches-migraines, DVT, COPD, chronic RF, chronic pain, GERD, hyperlipidemia, anemia, cholecystomy, appendectomy. Patient has a RAQUEL picc- intact, patent, dressing CDI. IVF: levophed 0.01mcg, D51/2 at 50cc/hr, heparin 700units- pending 0500 ptt, versed 5mg, propofol 20mcg. Patient is intubated and sedated, cough and gag present- intubated yesterday. ETT: 7.5/21cm, Vent: AC/VC 16, 450, +5, 40%. NSR on tele monitor at this time HR 88bmp. Murillo in place and draining via gravity. OGT- to LIS no ouput noted per noc RN. ACHS accuchecks. Right and left heel wounds, cellulitis noted- pictures to be taken today.
[2022-04-13 08:21] LABS: ALBUMIN 2.5 g/dL (3.4-4.8); C-REACTIVE PROTEIN QUANT 12.5 mg/dL (0-0.5); CALCIUM 7.3 mg/dL (8.4-11.0); CREATININE 3.22 mg/dL (0.55-1.30); PHOSPHORUS 3.9 mg/dL (2.7-4.5); TOTAL BILIRUBIN 4.7 mg/dL (0.0-1.0)
[2022-04-13] MEDS: VITAMIN B COMPLEX 1 CAP/TAB PO SCH (08:21)
[2022-04-13 08:40] LABS: HEMATOCRIT 21.4 % (36-48)
--- NOTE | 2022-04-13 08:48 | NUR ---
Lab values HGB 7.2 and HCT 21.4, Nurse Linda Carlin made aware. She said she will notify MD GRANADOS for necessary interventions.
[2022-04-13 09:55] LABS: ERYTHROCYTE SEDIMENTATION RATE 11 MM/HR (0-20)
--- NOTE | 2022-04-13 11:04 | NUR ---
MD rounds: Cardio aware of PTT, PLT, H/H level, heparin held for one hour and resumed at 500 units. GI rounded- wanted to follow up on small bowel follow through xray placed yesterday, called radiology pending call back.
--- NOTE | 2022-04-13 15:31 | NUR ---
MD rounds: Nephro frantz- wants to do HD, and son informed yesterday. Surgeon frantz vitale- wants to do debridement on right leg. He will also place HD line in surgery. Family called and informed and they consented with me and sumit RED.
--- NOTE | 2022-04-13 17:40 | NUR ---
Pulmo Rounds: informed dr smith of low blood sugars overnight, D10 to start at 50cc/hr tonight. aware of procedure in am, plans to start tube feeding s/p surgery and HD.
[2022-04-13] MEDS: D10W 1,000 ML IV SCH (18:02)
[2022-04-13] MEDS: NOREPINEPHRINE BITARTRATE 8 MG in NS 242 ML IV PRN (18:04)
[2022-04-13] MEDS: ATORVASTATIN 20 MG TABLET NG SCH (22:29)
[2022-04-14] VITALS (35 sets, daily range): BP systolic 98–143
[2022-04-14] MEDS: AMPICILLIN SODIUM 2 GM in NS 100 ML IV SCH ×3 (04:41→20:07)
[2022-04-14] MEDS: CLINDAMYCIN 900 mg/50mL D5W 50 ML IV SCH ×3 (06:05→21:06)
[2022-04-14] MEDS: PROPOFOL DRIP 100 ML IV PRN ×4 (06:12→21:08)
[2022-04-14 07:10] LABS: ALBUMIN 1.9 g/dL (3.4-4.8); CREATININE 3.69 mg/dL (0.55-1.30); TOTAL BILIRUBIN 5.7 mg/dL (0.0-1.0)
[2022-04-14 08:10] LABS: HEMATOCRIT 23.3 % (36-48); HEMOGLOBIN 8.3 g/dL (12.0-16.0); MEAN CORPUSCULAR HEMOGLOBIN 31 pg (27-31); MEAN CORPUSCULAR HGB CONC 35 % (32-36); MEAN CORPUSCULAR VOLUME 88 fL (79.0-98.0); PLATELET COUNT (AUTO) 100 K/uL (130-430); RED BLOOD CELL COUNT(AUTO) 2.66 MIL/uL (4.2-6.2); RED CELL DISTRIBUTION WIDTH 16.2 % (9.0-15.0); WHITE BLOOD COUNT (AUTO) 15.2 K/uL (4.8-10.8)
[2022-04-14] MEDS: VITAMIN B COMPLEX 1 CAP/TAB PO SCH (09:00)
[2022-04-14 09:18] LABS: C-REACTIVE PROTEIN QUANT 16.7 mg/dL (0-0.5)
[2022-04-14 10:02] LABS: ERYTHROCYTE SEDIMENTATION RATE 14 MM/HR (0-20)
[2022-04-14] MEDS ORDERED: MIDAZOLAM HCL 5 MG/5 ML VIAL IVP ONE (10:51)
[2022-04-14] MEDS ORDERED: NS 1000 ML IV.SOLN IV ONE (10:51)
[2022-04-14] MEDS ORDERED: PROPOFOL 200MG/ 20ML VIAL (DIPRIVAN) IV ONE (10:51)
[2022-04-14] MEDS ORDERED: WATER FOR IRRIGATION,STERILE 1,000 ML IRRIG.SOLN IR ONE (10:51)
[2022-04-14] MEDS ORDERED: AMPICILLIN SODIUM 2 GM VIAL IV ONE (10:51)
--- NOTE | 2022-04-14 10:52 | NUR ---
1045 ASSISTED IN TRANSPORTING PT TO O.R. BAGGED PT. TOOK BAGGING OVER ONCE IN THE O.R. Addendum: 04/14/22 at 1054 by Mikayla Ding RT Amended: Links added.
[2022-04-14] MEDS ORDERED: CALCIUM GLUCONATE 1 GM in NS 100 ML IV ONE (11:00)
[2022-04-14] MEDS ORDERED: FLUMAZENIL 0.1 MG/ML IVP PRN (11:45)
[2022-04-14] MEDS ORDERED: MIDAZOLAM HCL 5 MG/5 ML VIAL IVP PRN (11:45)
--- NOTE | 2022-04-14 12:04 | NUR ---
rt notes 1204 pt back to ICU 6, pt back on vent - AC16, 450VT PEEP 5 30% FIO2. Pt saturating 99%. no distress noted. no incident happened.
[2022-04-14] MEDS ORDERED: CALCIUM GLUCONATE 1 GM/10 ML VIAL ONE (12:39)
[2022-04-14 14:04] LABS: BAND % (MANUAL) 2 % (0-6)
[2022-04-14 14:05] LABS: BASOPHILS % (MANUAL) 0 % (0-2); EOSINOPHILS % (MANUAL) 3 % (0-7); LYMPHOCYTES % (MANUAL) 7 % (20-46); MONOCYTES % (MANUAL) 3 % (0-11)
[2022-04-14] MEDS: NOREPINEPHRINE BITARTRATE 8 MG in NS 242 ML IV PRN (14:29)
[2022-04-14] MEDS: D10W 1,000 ML IV SCH (14:41)
[2022-04-14] MEDS ORDERED: ALBUMIN HUMAN 25% 100 ML IV ONE ×2 (14:45→16:15)
[2022-04-14] MEDS: DAPTOmycin 800 MG in NS 50 ML IV SCH (15:05)
[2022-04-14] MEDS: HEPARIN 25,000 UNITS in 250 ML PREMIX IV PRN ×2 (18:41→18:54)
[2022-04-14] MEDS: ATORVASTATIN 20 MG TABLET NG SCH (20:14)
[2022-04-14] MEDS: MIDAZOLAM IN NACL,ISO-OSMOT/PF 100 ML IV PRN (20:16)
[2022-04-15] VITALS (44 sets, daily range): BP systolic 65–139
[2022-04-15] MEDS: AMPICILLIN SODIUM 2 GM in NS 100 ML IV SCH ×3 (04:05→20:20)
[2022-04-15] MEDS: PROPOFOL DRIP 100 ML IV PRN ×3 (04:06→15:02)
[2022-04-15] MEDS ORDERED: NOREPINEPHRINE 4 MG/4 ML VIAL IV ONE (04:37)
[2022-04-15] MEDS: NOREPINEPHRINE BITARTRATE 8 MG in NS 242 ML IV PRN ×3 (05:14→18:34)
[2022-04-15] MEDS: CLINDAMYCIN 900 mg/50mL D5W 50 ML IV SCH ×3 (05:41→21:03)
[2022-04-15 06:24] LABS: MEAN CORPUSCULAR VOLUME 87 fL (79.0-98.0); PLATELET COUNT (AUTO) 58 K/uL (130-430); RED BLOOD CELL COUNT(AUTO) 2.63 MIL/uL (4.2-6.2); RED CELL DISTRIBUTION WIDTH 15.9 % (9.0-15.0); WHITE BLOOD COUNT (AUTO) 14.4 K/uL (4.8-10.8)
[2022-04-15 06:53] LABS: ALBUMIN 2.2 g/dL (3.4-4.8); CREATININE 2.97 mg/dL (0.55-1.30); PHOSPHORUS 3.7 mg/dL (2.7-4.5); TOTAL BILIRUBIN 6.8 mg/dL (0.0-1.0)
--- NOTE | 2022-04-15 07:00 | NUR ---
open notes\; A 51-year-old female was admitted to [place] on 04-06-22 for status post fall. Patient developed right leg swelling with a DVT 04/06. Pt has a RAQUEL picc- intact, patent. [facility] dialysis access. IVF: LEVOPHED 0.01, D10 AT 50cc/hr, heparin, propofol versed. Pt is intubated on . vent: AC/VC 16, 450, 5, 40%. Pt on wound vac after wound debridement on right foot on 04-14. Murillo in place draining via gravity.
[2022-04-15 07:32] LABS: CALCIUM 6.8 mg/dL (8.4-11.0)
[2022-04-15 08:14] LABS: HEMOGLOBIN 7.7 g/dL (12.0-16.0); MEAN CORPUSCULAR HEMOGLOBIN 29 pg (27-31); MEAN CORPUSCULAR HGB CONC 33 % (32-36)
[2022-04-15] MEDS ORDERED: CALCIUM GLUCONATE 2 GM in NS 100 ML IV ONE ×2 (08:30→11:15)
--- NOTE | 2022-04-15 08:30 | NUR ---
critical lab value calcium 6.8, Dr. Morat[employer] restaurant cashier was informed.
--- NOTE | 2022-04-15 08:42 | NUR ---
rt notes 0842 NEDA Kearns increased fio2 to 50%, pt desaturating. will cont to monitor pt.
[2022-04-15] MEDS: HEPARIN 25,000 UNITS in 250 ML PREMIX IV PRN (08:57)
[2022-04-15] MEDS: VITAMIN B COMPLEX 1 CAP/TAB PO SCH (09:00)
--- NOTE | 2022-04-15 09:00 | NUR ---
blood culture ordered per .
[2022-04-15] MEDS ORDERED: GASTROGRAFIN 120 ML ONE (09:33)
[2022-04-15] MEDS: D10W 1,000 ML IV SCH ×2 (09:45→10:29)
[2022-04-15] MEDS ORDERED: PANTOPRAZOLE SODIUM 40 MG/VIAL (PROTONIX) IVP ONE (10:45)
--- NOTE | 2022-04-15 11:05 | NUR ---
Nutrition F/U Admitting Diagnosis Mechanical fall, intractable pain Reviewed Pertinent Medical/Surgical Hx Medical Record Other- RN Medical History Comment: Per EMR review, 51 YOF who presented to the ER after a ground level fall while she was transferring from bedside commode to her chair. The pt was concerned about R leg swelling. Per WIND TURBINE MECHANICAL ENGINEER report, Pt transferred to ICU today w/ hypotension, hypokalemia, and septicemia w/ PE. PMH: asthma, cervical CA, CAD, CHF, DM, HTN, SD, adrenal mass, migraine headaches, DVT, COPD, chronic respiratory failure, chronic pain syndrome, GERD, HLD, and anemia 04/09: CT shows ileus and fatty liver. LFTS are elevated which could be d/t fatty liver/meds/sepsis, etc 04/14: Pt getting HD today for worsening BUBBA Subjective Information RD attended ICU rounds and s/w primary RN regarding the pt. Pt was found to have a DVT on her right leg. Pt was intubated 04/13 and has Ve :12.6. RN said that pt was dialyzed yesterday and 2.5 L was removed. She has acute kidney injury. Pt is likely to have possible ileus or SBO and sepsis. Yesterday pt had debridement on right foot. Pt has been NPO for 4 days and is not meeting nutritional needs Current Diet Order/Nutrition Support NPO x 4 Patient/Significant Other Unable To Verbalize Education Provided Not Indicated NEW Pertinent Medications Levophed, D5NS@50mL/hr (provides 204 kcal), Clindamycin, Daptomycin, Lipitor, Propofol, NEW Pertinent Labs Na 132 L, K 4.0 WN L, BUN 23 H, Cre 2.97 H, lactic acid 6.8 L*, ALB 2.2 L, WBC 14.4 H (improving), H/H 7.7/23 L Height (Feet) 5 feet Height (Inches) 6.00 inches Weight fluctuating since 04/06, likely pt stated her weight incorrectly 293 pounds/ 132.988 kg Body Mass Index 47.29 kg/m2 %IBW 225 [place]/Adjusted Body Weight 130#/59 kg. 171#/ABW 77.6 kg Recent Weight Change Unable to verify Weight Status Morbidly Obese Last BM Apr 08, 2022 x 2 Food Allergies Unable to verify Usual Diet At Home No diet guidelines per nursing nutritional screening Current % PO NPO Skin comment: Patricio: 11, w/ many wounds on BLE and Left ear Edema: BLE 2+ pitting NEW Estimated Energy Expenditure (kcals/day) 2365 kcal (PSU 2009 for ICU/Vented. MSJ 1967, Tmax 38.2, Ve 12.6) NEW Estimated Protein Required (g/day) 71-83g (1.2-1.4 gm/kg IBW d/t sepsis/morbid obesity/critical illness/BUBBA) Estimated Fluid Required (l/day) Per physician d/t CHF NEW Problem/Etiology/Signs/Symptoms *Malnutrition in the context of morbid obesity R/T suspected over-consumption/unrestricted diet GAS DISTRIBUTION SUPERVISOR AEB no diet guidelines GAS DISTRIBUTION SUPERVISOR noted by nursing, BMI: 47.29 kg/m2, 225% IBW, and excessive adiposity throughout body (ongoing). * Increased energy and protein utilization r/t metabolic demands a/e/b estimated nutritional needs for wound healing (NEW) * Inadequate oral intake r/t diet order a/e/b NPO since 04/11/22 (NEW) Expected Outcomes/Goals - Monitor advancement of diet, appetite, and PO intakes w/ goal of pt meeting >75% of estimated nutritional needs, labs trending WNL, normal GI function, and skin integrity/wt maintenance Dietitian Recommendations * When medically appropriate, consider TF via NGT: Nepro @ 50 mL/hr Provides: 2160 kcal, 97 g pro, 872 mL free water Meets: 91% kcal, 117% higher end estimated protein needs * Consider wound supplements: MVI, 250 mg VIT C, Rogelio BID * Consider 220mg ZnSO4 x 14 days for wound healing * If patient becomes extubated, please revise nutritional needs Follow Up High Risk: F/U in 2-3days GS, MPH, RD
--- NOTE | 2022-04-15 11:08 | NUR ---
Dietitian Recommendations * When medically appropriate, consider TF via NGT: Nepro @ 50 mL/hr Provides: 2160 kcal, 97 g pro, 872 mL free water Meets: 91% kcal, 117% higher end estimated protein needs * Consider wound supplements: MVI, 250 mg VIT C, Rogelio BID * Consider 220mg ZnSO4 x 14 days for wound healing * If patient becomes extubated, please revise nutritional needs GS, MPH, RD Please refer to Nutrition F/U for further details
[2022-04-15 12:41] LABS: ERYTHROCYTE SEDIMENTATION RATE 14 MM/HR (0-20)
[2022-04-15] MEDS: MIDAZOLAM IN NACL,ISO-OSMOT/PF 100 ML IV PRN (16:18)
[2022-04-15 17:06] LABS: BAND % (MANUAL) 3 % (0-6); BASOPHILS % (MANUAL) 0 % (0-2); EOSINOPHILS % (MANUAL) 1 % (0-7); LYMPHOCYTES % (MANUAL) 10 % (20-46); MONOCYTES % (MANUAL) 2 % (0-11)
[2022-04-15] MEDS ORDERED: *TPN PER PHARMACY XX PRN (18:00)
[2022-04-15] MEDS: ATORVASTATIN 20 MG TABLET NG SCH (21:03)
[2022-04-16] VITALS (32 sets, daily range): BP systolic 72–133
[2022-04-16] MEDS ORDERED: NOREPINEPHRINE 4 MG/4 ML VIAL IV ONE (04:16)
[2022-04-16] MEDS: AMPICILLIN SODIUM 2 GM in NS 100 ML IV SCH ×3 (04:56→20:30)
[2022-04-16] MEDS: CLINDAMYCIN 900 mg/50mL D5W 50 ML IV SCH ×3 (06:29→21:53)
[2022-04-16] MEDS: DEXTROSE 50% JECT 50 ML DISP.SYRIN IVP PRN (06:30)
[2022-04-16 06:57] LABS: HEMATOCRIT 24.6 % (36-48); HEMOGLOBIN 8.4 g/dL (12.0-16.0); MEAN CORPUSCULAR HEMOGLOBIN 30 pg (27-31); MEAN CORPUSCULAR HGB CONC 34 % (32-36); MEAN CORPUSCULAR VOLUME 88 fL (79.0-98.0); PLATELET COUNT (AUTO) 82 K/uL (130-430); RED BLOOD CELL COUNT(AUTO) 2.78 MIL/uL (4.2-6.2); WHITE BLOOD COUNT (AUTO) 17.6 K/uL (4.8-10.8)
--- NOTE | 2022-04-16 07:25 | NUR ---
RT NOTES FIO2 TO 0.45. WILL MONITOR PT.
[2022-04-16 07:39] LABS: ALBUMIN 1.8 g/dL (3.4-4.8); CREATININE 3.53 mg/dL (0.55-1.30); PHOSPHORUS 4.6 mg/dL (2.7-4.5); TOTAL BILIRUBIN 8.1 mg/dL (0.0-1.0)
[2022-04-16 08:38] LABS: INR 1.6 (0.8-1.2); PROTHROMBIN TIME 17.4 SECS (9.5-12.5)
[2022-04-16 08:39] LABS: FIBRINOGEN < 180 mg/dL (200-400)
[2022-04-16] MEDS: VITAMIN B COMPLEX 1 CAP/TAB PO SCH (09:00)
[2022-04-16] MEDS: NOREPINEPHRINE BITARTRATE 16 MG in NS 234 ML IV PRN ×4 (09:44→20:27)
[2022-04-16] MEDS: PANTOPRAZOLE SODIUM 40 MG/VIAL (PROTONIX) IVP SCH (09:46)
--- NOTE | 2022-04-16 09:48 | NUR ---
PPN ORDER Subjective Information 04/16: PPN per pharmacy received 04/15/[address] deferred bedside visit due to high workload. RD provided verbal recommendations to pharmacy via phone. RD reviewed current EMR: diet Hx, MD/RN notes, pertinent labs, meds, procedures, care trends, and care activity. Brief RD note d/t high workload/census. Estimated Energy Expenditure (kcals/day) 2365 kcal (PSU 2009 for ICU/Vented. MSJ 1967, Tmax 38.2, Ve 12.6) Estimated Protein Required (g/day) 71-83g (1.2-1.4 gm/kg IBW d/t sepsis/critical illness/BUBBA, HD) Estimated Fluid Required (l/day) Per physician d/t CHF, BUBBA Dietitian Recommendations * Initiate PPN if medically appropriate: -- D30 AA 8.5% @ 42mL/hr (70mL/hr goal) + 20%ILE @ 5mL/hr via central line Provides: 2040mL total volume, 1546 kcals, 82g AA; GIR 1.5 Meets: 65% est kcals, 99% upper est PRO needs GS, MPH, RD
--- NOTE | 2022-04-16 10:00 | NUR ---
Dietitian Recommendations * Initiate PPN if medically appropriate: -- D30 AA 8.5% @ 42mL/hr (70mL/hr goal) + 20%ILE @ 5mL/hr via central line Provides: 2040mL total volume, 1546 kcals, 82g AA; GIR 1.5 Meets: 65% est kcals, 99% upper est PRO needs GS, MPH, RD
[2022-04-16] MEDS ORDERED: DEXTROSE 50% JECT 50 ML DISP.SYRIN IVP PRN (10:30)
[2022-04-16] MEDS ORDERED: *TPN PER PHARMACY XX PRN (10:30)
[2022-04-16 11:32] LABS: C-REACTIVE PROTEIN QUANT 16.2 mg/dL (0-0.5)
[2022-04-16 11:37] LABS: CALCIUM 6.3 mg/dL (8.4-11.0)
[2022-04-16] MEDS ORDERED: ALBUMIN HUMAN 25% 100 ML IV ONE (12:45)
[2022-04-16 13:00] LABS: ERYTHROCYTE SEDIMENTATION RATE 19 MM/HR (0-20)
--- NOTE | 2022-04-16 13:23 | NUR ---
RT NOTES Found FIO2 @0.50, pt is still undergoing dialysis.
[2022-04-16] MEDS: PROPOFOL DRIP 100 ML IV PRN (13:25)
[2022-04-16] MEDS: D10W 1,000 ML IV SCH (13:28)
[2022-04-16] MEDS: DAPTOmycin 800 MG in NS 50 ML IV SCH (14:11)
[2022-04-16] MEDS: MIDAZOLAM IN NACL,ISO-OSMOT/PF 100 ML IV PRN (14:13)
--- NOTE | 2022-04-16 14:55 | NUR ---
MD DR PERALTA AT BEDSIDE, EXAMINING THE PATIENT.
[2022-04-16 15:07] LABS: BAND % (MANUAL) 4 % (0-6); BASOPHILS % (MANUAL) 0 % (0-2); EOSINOPHILS % (MANUAL) 0 % (0-7); LYMPHOCYTES % (MANUAL) 15 % (20-46); MONOCYTES % (MANUAL) 4 % (0-11)
--- NOTE | 2022-04-16 15:35 | NUR ---
RT NOTES FIO2 TO 0.45.
--- NOTE | 2022-04-16 16:20 | NUR ---
LICENSED INSURANCE AGENT AT BEDSIDE, ABDOMINAL ULTRA SOUND IN PROGRESS.
[2022-04-16] MEDS ORDERED: TPN PERIPHERAL IV SCH ×8 (21:00)
[2022-04-16] MEDS ORDERED: SODIUM CHLORIDE IV SCH ×8 (21:00)
[2022-04-16] MEDS: ATORVASTATIN 20 MG TABLET NG SCH (21:00)
[2022-04-16] MEDS ORDERED: SODIUM ACETATE IV SCH ×8 (21:00)
[2022-04-16] MEDS ORDERED: [UNRECOGNIZED DRUG - OTHER] IV SCH ×8 (21:00)
--- NOTE | 2022-04-16 21:20 | NUR ---
RT NOTES. FOUND ET TUBE @22 CM LL. NO DISTRESS NOTED. BILATERAL BREATH SOUNDS/CHEST RISE PRESENT. AIRWAY PATENT&SECURED.
[2022-04-17] VITALS (31 sets, daily range): BP systolic 90–144
[2022-04-17] MEDS: NOREPINEPHRINE BITARTRATE 16 MG in NS 234 ML IV PRN ×4 (00:43→21:24)
--- NOTE | 2022-04-17 01:25 | NUR ---
BS=63 then 64 mg/dl. D50 1 amp. adm IVP. BS @ 1038=916 mg/dl. Will cont. to monitor for hypoglycemia. Levophed Drip titrated down to 0.4 mcg/Kg/min. to keep SBP>[address] on the scope. Afebrile. Will cont. resp and cardiac monitoring.
[2022-04-17] MEDS: AMPICILLIN SODIUM 2 GM in NS 100 ML IV SCH ×3 (03:49→21:33)
[2022-04-17] MEDS: HEPARIN 25,000 UNITS in 250 ML PREMIX IV PRN (03:50)
--- NOTE | 2022-04-17 04:00 | NUR ---
PTT=88.7 secs. Heparin Drip titrated down to 200 units per hour. Will recheck PTT @ 1000. No s/sx of bleeding @ this time. Will cont. to monitor.
[2022-04-17] MEDS: CLINDAMYCIN 900 mg/50mL D5W 50 ML IV SCH ×3 (06:31→22:53)
[2022-04-17 07:15] LABS: HEMATOCRIT 22.4 % (36-48); HEMOGLOBIN 7.7 g/dL (12.0-16.0); MEAN CORPUSCULAR HEMOGLOBIN 30 pg (27-31); MEAN CORPUSCULAR HGB CONC 34 % (32-36); MEAN CORPUSCULAR VOLUME 88 fL (79.0-98.0); PLATELET COUNT (AUTO) 51 K/uL (130-430); RED BLOOD CELL COUNT(AUTO) 2.54 MIL/uL (4.2-6.2); RED CELL DISTRIBUTION WIDTH 15.9 % (9.0-15.0); WHITE BLOOD COUNT (AUTO) 13.1 K/uL (4.8-10.8)
[2022-04-17 07:28] LABS: ALBUMIN 1.9 g/dL (3.4-4.8); CREATININE 2.84 mg/dL (0.55-1.30); PHOSPHORUS 3.7 mg/dL (2.7-4.5); TOTAL BILIRUBIN 8.4 mg/dL (0.0-1.0)
[2022-04-17] MEDS ORDERED: DIATR MEGLU/DIATRIZ SOD 30 ML SOLUTION PO ONE (07:58)
[2022-04-17] MEDS: VITAMIN B COMPLEX 1 CAP/TAB PO SCH (09:00)
[2022-04-17] MEDS ORDERED: APIXABAN 2.5 MG TABLET PO SCH (09:00)
--- NOTE | 2022-04-17 09:05 | NUR ---
Contrast Gastrograffin injected into OGT for Small Bowel follow through.
[2022-04-17] MEDS: PANTOPRAZOLE SODIUM 40 MG/VIAL (PROTONIX) IVP SCH (09:33)
[2022-04-17 10:38] LABS: ERYTHROCYTE SEDIMENTATION RATE 26 MM/HR (0-20)
[2022-04-17 11:00] LABS: C-REACTIVE PROTEIN QUANT 30.2 mg/dL (0-0.5)
--- NOTE | 2022-04-17 11:30 | NUR ---
HEPARIN PROTOCOL PTT 94.6, PHARMACIST AWARE OF RESULT. HEPARIN DRIP OFF.
--- NOTE | 2022-04-17 12:30 | NUR ---
HEPARIN PROTOCOL HEPARIN DRIP NOW INFUSED AT 100 UNITS PER HOUR PER PHARMACIST, NEXT PTT AT AROUND 1830 TONIGHT.
[2022-04-17 13:33] LABS: BAND % (MANUAL) 4 % (0-6); BASOPHILS % (MANUAL) 0 % (0-2); EOSINOPHILS % (MANUAL) 0 % (0-7); LYMPHOCYTES % (MANUAL) 16 % (20-46); MONOCYTES % (MANUAL) 4 % (0-11)
--- NOTE | 2022-04-17 13:55 | NUR ---
FAMILY CALL RECEIVED FROM PT'S SON PROSPER, UPDATED HIM ON HER STATUS.
[2022-04-17] MEDS: MIDAZOLAM IN NACL,ISO-OSMOT/PF 100 ML IV PRN (15:45)
--- NOTE | 2022-04-17 20:00 | NUR ---
ASSESSMENT Pt response to noxious stimulus by small muscle twitches. Midline PICC present right upper arm. IVFs infusing, dressing dry and intact. No redness or swelling noted @ site. OGT placement checked by irrigating tube with air. Abdomen is soft with distant bowel sounds. OGT clamped. Murillo cath in use, dark kong color urine noted.
[2022-04-17] MEDS ORDERED: TPN PERIPHERAL IV SCH ×8 (21:00)
[2022-04-17] MEDS ORDERED: SODIUM ACETATE IV SCH ×8 (21:00)
[2022-04-17] MEDS ORDERED: [UNRECOGNIZED DRUG - OTHER] IV SCH ×8 (21:00)
[2022-04-17] MEDS ORDERED: SODIUM CHLORIDE IV SCH ×8 (21:00)
[2022-04-17] MEDS ORDERED: *HEPARIN PER PHARMACY XX ONE (22:15)
[2022-04-17] MEDS ORDERED: HEPARIN 25,000 UNITS in 250 ML PREMIX IV PRN (22:30)
[2022-04-17] MEDS: ATORVASTATIN 20 MG TABLET NG SCH (22:53)
[2022-04-18] VITALS (27 sets, daily range): BP systolic 94–142
[2022-04-18] MEDS: AMPICILLIN SODIUM 2 GM in NS 100 ML IV SCH ×3 (04:16→20:36)
[2022-04-18 06:54] LABS: HEMATOCRIT 22.1 % (36-48); HEMOGLOBIN 7.4 g/dL (12.0-16.0); MEAN CORPUSCULAR HEMOGLOBIN 29 pg (27-31); MEAN CORPUSCULAR HGB CONC 33 % (32-36); MEAN CORPUSCULAR VOLUME 87 fL (79.0-98.0); RED BLOOD CELL COUNT(AUTO) 2.54 MIL/uL (4.2-6.2); RED CELL DISTRIBUTION WIDTH 16.2 % (9.0-15.0); WHITE BLOOD COUNT (AUTO) 11.4 K/uL (4.8-10.8)
[2022-04-18] MEDS: CLINDAMYCIN 900 mg/50mL D5W 50 ML IV SCH ×3 (06:57→20:36)
[2022-04-18 07:39] LABS: ALBUMIN 1.8 g/dL (3.4-4.8); CALCIUM 7.3 mg/dL (8.4-11.0); CREATININE 2.93 mg/dL (0.55-1.30); PHOSPHORUS 3.6 mg/dL (2.7-4.5); TOTAL BILIRUBIN 9.5 mg/dL (0.0-1.0)
[2022-04-18 07:56] LABS: INR 1.7 (0.8-1.2); PROTHROMBIN TIME 17.4 SECS (9.5-12.5)
--- NOTE | 2022-04-18 08:00 | NUR ---
Opening Note: Patient is a 51 year old female admitted to [place] on 04/06 for a CC: of mechanical fall. Patient was transferring bedside commode to chair when she fell. She also had right leg swelling with a DVT 04/06. PMHX: multiple back surgeries, asthma, cervical cancer, CAD, CHF, DM, HTN, seizure disorder, adrenal mass, headaches-migraines, DVT, COPD, chronic RF, chronic pain, GERD, hyperlipidemia, anemia, cholecystomy, appendectomy. S/p debridement of right foot on 04/14 wound vac is placed- to be changed today. Patient has a RAQUEL picc- intact, patent, dressing CDI. IVF: levophed 0.17mcg, TPN at 50cc/hr, heparin 100units- ptt resulted no change, next ptt draw in am therapeutic level at this time, versed 3mg. Patient is intubated and sedated, cough and gag present- intubated 04/12. ETT: 7.5/21cm, Vent: AC/VC 16, 450, +5, 40%. NSR on tele monitor at this time HR 78bmp. Murillo in place and draining via gravity. OGT- clamped s/p small bowel through showing ileus no obstruction, per GI we did not place to suction yet kub to do today, unless she vomits ogt to be kept clamped. ACHS accuchecks.
[2022-04-18 08:23] LABS: C-REACTIVE PROTEIN QUANT 34.4 mg/dL (0-0.5)
[2022-04-18 08:32] LABS: PLATELET COUNT (AUTO) 38 K/uL (130-430)
[2022-04-18] MEDS: NOREPINEPHRINE BITARTRATE 16 MG in NS 234 ML IV PRN (08:36)
[2022-04-18] MEDS: VITAMIN B COMPLEX 1 CAP/TAB PO SCH (08:36)
[2022-04-18] MEDS: PANTOPRAZOLE SODIUM 40 MG/VIAL (PROTONIX) IVP SCH (08:36)
[2022-04-18] MEDS ORDERED: APIXABAN 2.5 MG TABLET PO SCH (09:00)
--- NOTE | 2022-04-18 10:59 | NUR ---
MD Rounds: Cardio- CHEMICAL MILLING PROCESSOR rounded, no changes made aware of platlet level. Heparin on hold. GI- plans to keep ogt clamped, still has residual contrast, kub to be done today. HD nurse here pending to start.
[2022-04-18] MEDS: INSULIN REGULAR, HUMAN 100 UNITS/ML, 3 ML VIAL (humuLIN R) SUBCUT PRN (11:36)
[2022-04-18 11:37] LABS: ERYTHROCYTE SEDIMENTATION RATE 44 MM/HR (0-20)
[2022-04-18] MEDS ORDERED: ALBUMIN HUMAN 25% 200 ML IV ONE ×2 (13:00)
[2022-04-18] MEDS ORDERED: PHYTONADIONE 10 MG in NS 50 ML IV ONE (13:00)
[2022-04-18 14:31] LABS: BAND % (MANUAL) 2 % (0-6); BASOPHILS % (MANUAL) 0 % (0-2); EOSINOPHILS % (MANUAL) 0 % (0-7); LYMPHOCYTES % (MANUAL) 19 % (20-46); MONOCYTES % (MANUAL) 3 % (0-11)
[2022-04-18] MEDS: DAPTOmycin 800 MG in NS 50 ML IV SCH (15:05)
[2022-04-18 15:26] LABS: AMYLASE 13 U/L (0-100); LIPASE 14 U/L (73-393)
[2022-04-18 16:55] LABS: MEAN CORPUSCULAR HEMOGLOBIN 29 pg (27-31); MEAN CORPUSCULAR HGB CONC 34 % (32-36); MEAN CORPUSCULAR VOLUME 87 fL (79.0-98.0); RED BLOOD CELL COUNT(AUTO) 2.17 MIL/uL (4.2-6.2); RED CELL DISTRIBUTION WIDTH 15.6 % (9.0-15.0); WHITE BLOOD COUNT (AUTO) 11.2 K/uL (4.8-10.8)
[2022-04-18 17:49] LABS: HEMATOCRIT 18.9 % (36-48); HEMOGLOBIN 6.3 g/dL (12.0-16.0)
[2022-04-18 17:50] LABS: PLATELET COUNT (AUTO) 34 K/uL (130-430)
[2022-04-18 17:51] LABS: BAND % (MANUAL) 4 % (0-6); BASOPHILS % (MANUAL) 0 % (0-2); EOSINOPHILS % (MANUAL) 0 % (0-7); LYMPHOCYTES % (MANUAL) 10 % (20-46); MONOCYTES % (MANUAL) 7 % (0-11)
--- NOTE | 2022-04-18 18:03 | NUR ---
Update: h/h reported (6.3/18.9), platlets 34- spoke with dr mclaughlin- one unit of prbc to be transfused. spoke with yobani Shaila for consent, placed in chart.
[2022-04-18] MEDS: ATORVASTATIN 20 MG TABLET NG SCH (20:36)
[2022-04-18] MEDS ORDERED: K PHOS IV SCH ×9 (21:00)
[2022-04-18] MEDS ORDERED: [UNRECOGNIZED DRUG - OTHER] IV SCH ×9 (21:00)
[2022-04-18] MEDS ORDERED: SODIUM CHLORIDE IV SCH ×9 (21:00)
[2022-04-18] MEDS ORDERED: SODIUM ACETATE IV SCH ×9 (21:00)
[2022-04-18] MEDS ORDERED: TPN CENTRAL IV SCH ×9 (21:00)
[2022-04-19] VITALS (26 sets, daily range): BP systolic 92–135
[2022-04-19] MEDS: INSULIN REGULAR, HUMAN 100 UNITS/ML, 3 ML VIAL (humuLIN R) SUBCUT PRN ×4 (00:32→17:01)
[2022-04-19] MEDS: PROPOFOL DRIP 100 ML IV PRN (00:50)
[2022-04-19] MEDS: AMPICILLIN SODIUM 2 GM in NS 100 ML IV SCH ×3 (05:01→20:33)
[2022-04-19 06:12] LABS: BASOPHILS % (AUTO) 0.3 % (0.0-2.0); EOSINOPHILS # (AUTO) 0.1 K/uL (0.0-0.4); EOSINOPHILS % (AUTO) 0.7 % (0.0-4.0); LYMPHOCYTES # (AUTO) 1.2 K/uL (1.0-5.5); LYMPHOCYTES % (AUTO) 14.1 % (20.5-51.5); MEAN CORPUSCULAR HEMOGLOBIN 29 pg (27-31); MEAN CORPUSCULAR HGB CONC 34 % (32-36); MEAN CORPUSCULAR VOLUME 86 fL (79.0-98.0); MONOCYTES # (AUTO) 0.4 K/uL (0.0-1.0); MONOCYTES % (AUTO) 5.1 % (1.7-9.3); NEUTROPHILS # (AUTO) 6.6 K/uL (1.8-7.7); RED CELL DISTRIBUTION WIDTH 15.5 % (9.0-15.0); WHITE BLOOD COUNT (AUTO) 8.2 K/uL (4.8-10.8)
[2022-04-19] MEDS: CLINDAMYCIN 900 mg/50mL D5W 50 ML IV SCH ×3 (06:37→21:45)
[2022-04-19 07:25] LABS: CREATININE 2.13 mg/dL (0.55-1.30)
--- NOTE | 2022-04-19 07:48 | NUR ---
Opening Note: Patient is a 51 year old female admitted to [place] on 04/06 for a CC: of mechanical fall. Patient was transferring bedside commode to chair when she fell. She also had right leg swelling with a DVT 04/06. PMHX: multiple back surgeries, asthma, cervical cancer, CAD, CHF, DM, HTN, seizure disorder, adrenal mass, headaches-migraines, DVT, COPD, chronic RF, chronic pain, GERD, hyperlipidemia, anemia, cholecystomy, appendectomy. S/p debridement of right foot on 04/14 wound vac is placed- changed 04/18, due to be changed tomorrow. Patient has a RAQUEL picc- intact, patent, dressing CDI. IVF: levophed 0.01mcg, TPN at 50cc/hr, versed 1mg. Patient is intubated and sedated, cough and gag present- intubated 04/12. ETT: 7.5/21cm, Vent: AC/VC 16, 450, +5, 40%. NSR on tele monitor at this time HR 79bmp. Murillo in place and draining via gravity. OGT- clamped s/p small bowel through showing ileus no obstruction, per GI we will do another xray today and then will place OGT to LIS. CECILIAS accuchecks.
[2022-04-19] MEDS: VITAMIN B COMPLEX 1 CAP/TAB PO SCH (08:06)
[2022-04-19] MEDS: PANTOPRAZOLE SODIUM 40 MG/VIAL (PROTONIX) IVP SCH (08:07)
[2022-04-19 08:23] LABS: C-REACTIVE PROTEIN QUANT 26.7 mg/dL (0-0.5)
[2022-04-19 08:42] LABS: INR 1.6 (0.8-1.2); PROTHROMBIN TIME 16.6 SECS (9.5-12.5)
[2022-04-19] MEDS ORDERED: KCL 40 mEq in 100 mL (PREMIX) 100 ML IV ONE (08:45)
[2022-04-19 08:58] LABS: HEMOGLOBIN 6.4 g/dL (12.0-16.0); PLATELET COUNT (AUTO) 27 K/uL (130-430)
[2022-04-19 09:14] LABS: NEUTROPHILS % (AUTO) 79.8 % (40.0-70.0)
--- NOTE | 2022-04-19 09:45 | NUR ---
Labs: H/H- low 6.4/19.0- one unit to be transfused per dr Ramirez. reported platelets as well of 28- no order to transfuse. Potassium- 2.6 (60meq IV replacement)
[2022-04-19] MEDS: MIDAZOLAM IN NACL,ISO-OSMOT/PF 100 ML IV PRN (09:54)
[2022-04-19] MEDS: MINERAL OIL 30 ML UDC PO SCH ×2 (10:26→21:00)
[2022-04-19] MEDS ORDERED: KCL 20 mEq in 100 mL (PREMIX) 100 ML IV ONE (11:00)
[2022-04-19] MEDS ORDERED: K PHOS 15 MM in NS 250 ML IV ONE (11:00)
[2022-04-19 12:32] LABS: ERYTHROCYTE SEDIMENTATION RATE 44 MM/HR (0-20)
[2022-04-19] MEDS ORDERED: PHYTONADIONE 10 MG in NS 50 ML IV ONE (16:00)
--- NOTE | 2022-04-19 16:03 | NUR ---
Nutrition F/U: RD reviewed pts current EMR including diet Hx, physician notes, nursing notes, pertinent labs, Medications, procedures, care trends, and care activity. Shortened note d/t high RD workload Admission Dx: Mechanical fall, intractable pain PMH: Per EMR review, 51 YOF who presented to the ER after a ground level fall while she was transferring from bedside commode to her chair. The pt was concerned about R leg swelling. Per PIN DRAFTING MACHINE OPERATOR report, Pt transferred to ICU today w/ hypotension, hypokalemia, and septicemia w/ PE. PMHx: asthma, cervical CA, CAD, CHF, DM, HTN, SD, adrenal mass, migraine headaches, DVT, COPD, chronic respiratory failure, chronic pain syndrome, GERD, HLD, and anemia 04/09: CT shows ileus and fatty liver. LFTS are elevated which could be d/t fatty liver/meds/sepsis, etc 04/14: Pt getting HD today for worsening BUBBA Subjective Information: Late note entered d/t high RD workload 04/18 RD rounded to ICU and witnessed patient sedated on vent with PN infusing almost to goal rate: D30 AA8.5% at 50mL/hr (ordered goal rate 60mL/hr). PIN DRAFTING MACHINE OPERATOR at bedside who reports no ILE ordered at this time. Pt noted with TG >1900 on 04/17, so not appropriate to initiate ILE. TG 04/19 now 392, ILE can be initiated when TG <500. Per RN, pt on versed and levo, no propofol. Pt has OGT in place, but RN states there are no plans for feeding or suction at this time. RN reports pt with multiple wounds. 04/19 Per EMR, HD completed on 04/18 with 3L removed. Pt noted with abnormal labs on 04/19: Hgb 6.4 L*, Na 135 L, K 2.9 L*, Cre 1.23 H (BUN NL), BG 177 H, Ca 7.0 L, Phos 2.0 L, Bili 10.0 H, CRP 26.1 H, Lipase 14 L; 04/11 Procalcitonin 3.04 H. Current Diet Order/Nutrition Support: D30 AA8.5% at 70mL/hr (goal) via central line x 0 Current % PO 0% - NPO NEW* Estimated Energy Expenditure (kcals/day) 2192 kcal (PSU 2009 for ICU/Vented. MSJ 1967, Tmax 36.6, Ve 11.9) Estimated Protein Required (g/day) 71-83g (1.2-1.4 gm/kg IBW d/t sepsis/morbid obesity/critical illness/BUBBA) Estimated Fluid Required (l/day) Per physician d/t CHF NEW Problem/Etiology/Signs/Symptoms * Malnutrition in the context of morbid obesity R/T suspected over-consumption/unrestricted diet FLOATLIGHT LOADING SUPERVISOR AEB no diet guidelines FLOATLIGHT LOADING SUPERVISOR noted by nursing, BMI: 47.29 kg/m2, 225% IBW, and excessive adiposity throughout body (ongoing). * Increased energy and protein utilization r/t metabolic demands a/e/b estimated nutritional needs for wound healing (on-going) * Inadequate oral intake r/t diet order a/e/b NPO since 04/11/22 (on-going- now TPN) Expected Outcomes/Goals - Monitor advancement of diet, appetite, and PO intakes w/ goal of pt meeting >75% of estimated nutritional needs, labs trending WNL, normal GI function, and skin integrity/wt maintenance Dietitian Recommendations * Rec D40 AA8.5% at 85mL (goal) + 20% ILE at 5mL via central line Provides daily: 2160mL total volume, 1974 kcals, 87g AA; GIR 2.1 Meets: 90% estimated kcals, 105% upper estimated PRO * Consider wound supplements: 250 mg VIT C, 220mg ZnSO4 x 14 days; * Monitor and replace electrolytes as needed * When medically appropriate, consider EN support: Nepro @ 50 mL/hr (goal rate) via NGT Provides: 2160 kcal, 97 g pro, 872 mL free water Meets: 91% kcal, 117% higher end estimated protein needs Follow Up High Risk: F/U in 2-3days
--- NOTE | 2022-04-19 16:06 | NUR ---
Dietitian Recommendations * Recommend D40 AA8.5% at 85mL (goal) + 20% ILE at 5mL via central line Provides daily: 2160mL total volume, 1974 kcals, 87g AA; GIR 2.1 Meets: 90% estimated kcals, 105% upper estimated PRO * Consider wound supplements: 250 mg VIT C, 220mg ZnSO4 x 14 days * Monitor and replace electrolytes as needed * When medically appropriate, consider EN support: Nepro @ 50 mL/hr (goal rate) via NGT Provides: 2160 kcal, 97 g pro, 872 mL free water Meets: 91% kcal, 117% higher end estimated protein needs Please refer to nutrition f/u for details, thanks! Analisa Munoz MPH, RDN
[2022-04-19] MEDS ORDERED: TPN CENTRAL IV SCH ×10 (21:00)
[2022-04-19] MEDS: ATORVASTATIN 20 MG TABLET NG SCH ×2 (21:00→21:45)
[2022-04-19] MEDS ORDERED: SODIUM ACETATE IV SCH ×10 (21:00)
[2022-04-19] MEDS ORDERED: METOCLOPRAMIDE HCL 10 MG/10 ML UDC GT SCH (21:00)
[2022-04-19] MEDS ORDERED: [UNRECOGNIZED DRUG - OTHER] IV SCH ×10 (21:00)
[2022-04-19] MEDS ORDERED: SODIUM CHLORIDE IV SCH ×10 (21:00)
[2022-04-19 21:30] LABS: HEMATOCRIT 24.1 % (36-48); MEAN CORPUSCULAR HEMOGLOBIN 29 pg (27-31); MEAN CORPUSCULAR HGB CONC 33 % (32-36); MEAN CORPUSCULAR VOLUME 88 fL (79.0-98.0); RED BLOOD CELL COUNT(AUTO) 2.75 MIL/uL (4.2-6.2); RED CELL DISTRIBUTION WIDTH 15.7 % (9.0-15.0); WHITE BLOOD COUNT (AUTO) 10.6 K/uL (4.8-10.8)
[2022-04-19 21:47] LABS: PLATELET COUNT (AUTO) 32 K/uL (130-430)
--- NOTE | 2022-04-19 21:51 | NUR ---
PAGED DR MARTINEZ TO CLARIFY ORDER FOR ogt SUCTION. ENDORSED TO BE LIWS, WHICH IT WAS AT BEGINNING OF SHIFT, BUT MEDICATIONS ARE ORDERED TO BE PLACED DOWN. REGLAN CHANGED TO IV AND MINERAL OIL TO BE HELD UNTI;L CLARIFICATION WITH GI ON THE AM.
[2022-04-19 22:22] LABS: ATYPICAL LYMPHOCYTES % 2 % (0-0); BAND % (MANUAL) 3 % (0-6); BASOPHILS % (MANUAL) 0 % (0-2); EOSINOPHILS % (MANUAL) 1 % (0-7); LYMPHOCYTES % (MANUAL) 11 % (20-46); MONOCYTES % (MANUAL) 8 % (0-11)
[2022-04-19] MEDS: NOREPINEPHRINE BITARTRATE 16 MG in NS 234 ML IV PRN (23:24)
[2022-04-20] VITALS (30 sets, daily range): BP systolic 98–144
[2022-04-20] MEDS: INSULIN REGULAR, HUMAN 100 UNITS/ML, 3 ML VIAL (humuLIN R) SUBCUT PRN ×3 (03:39→12:02)
[2022-04-20] MEDS: AMPICILLIN SODIUM 2 GM in NS 100 ML IV SCH ×3 (04:15→20:47)
[2022-04-20] MEDS: METOCLOPRAMIDE HCL 10 MG/2 ML VIAL IVP SCH ×3 (05:21→18:09)
[2022-04-20] MEDS: CLINDAMYCIN 900 mg/50mL D5W 50 ML IV SCH ×3 (05:22→21:05)
[2022-04-20 06:45] LABS: BASOPHILS # (AUTO) 0.1 K/uL (0.0-0.2); BASOPHILS % (AUTO) 0.7 % (0.0-2.0); EOSINOPHILS % (AUTO) 0.4 % (0.0-4.0); HEMATOCRIT 22.8 % (36-48); HEMOGLOBIN 7.8 g/dL (12.0-16.0); LYMPHOCYTES # (AUTO) 1.1 K/uL (1.0-5.5); LYMPHOCYTES % (AUTO) 10.4 % (20.5-51.5); MEAN CORPUSCULAR HEMOGLOBIN 29 pg (27-31); MEAN CORPUSCULAR HGB CONC 34 % (32-36); MEAN CORPUSCULAR VOLUME 86 fL (79.0-98.0); MONOCYTES # (AUTO) 0.6 K/uL (0.0-1.0); MONOCYTES % (AUTO) 6.3 % (1.7-9.3); NEUTROPHILS # (AUTO) 8.4 K/uL (1.8-7.7); NEUTROPHILS % (AUTO) 82.2 % (40.0-70.0); RED BLOOD CELL COUNT(AUTO) 2.66 MIL/uL (4.2-6.2); RED CELL DISTRIBUTION WIDTH 15.6 % (9.0-15.0); WHITE BLOOD COUNT (AUTO) 10.2 K/uL (4.8-10.8)
[2022-04-20 06:57] LABS: INR 1.6 (0.8-1.2); PROTHROMBIN TIME 16.2 SECS (9.5-12.5)
[2022-04-20 07:25] LABS: PLATELET COUNT (AUTO) 43 K/uL (130-430)
--- NOTE | 2022-04-20 08:00 | NUR ---
RN NOTES STILL ON VENT, AC
--- NOTE | 2022-04-20 08:00 | NUR ---
RN NOTES STILL ORALLY INTUBATED TO VENT, ON AC - 16, VT 450, FIO2 30%, PEEP 5 VERSED DRIP @ 1MG/HR. SINUS RHYTHM ON THE MONITOR. PATIENT MADE COMFORTABLE.
[2022-04-20 08:22] LABS: ERYTHROCYTE SEDIMENTATION RATE 44 MM/HR (0-20)
[2022-04-20] MEDS: MINERAL OIL 30 ML UDC PO SCH ×2 (08:51→21:04)
[2022-04-20] MEDS: PANTOPRAZOLE SODIUM 40 MG/VIAL (PROTONIX) IVP SCH (08:51)
[2022-04-20] MEDS: VITAMIN B COMPLEX 1 CAP/TAB PO SCH (08:51)
[2022-04-20 10:18] LABS: CALCIUM 7.1 mg/dL (8.4-11.0); CREATININE 2.42 mg/dL (0.55-1.30); TOTAL BILIRUBIN 10.7 mg/dL (0.0-1.0)
[2022-04-20 10:19] LABS: ALBUMIN 1.8 g/dL (3.4-4.8); PHOSPHORUS 1.9 mg/dL (2.7-4.5)
[2022-04-20] MEDS: DAPTOmycin 800 MG in NS 50 ML IV SCH (16:17)
--- NOTE | 2022-04-20 16:20 | NUR ---
RN NOTES PM CARE DONE, WOUND CARE DONE. PATIENT REPOSITIONED FOR COMFORT.
--- NOTE | 2022-04-20 17:30 | NUR ---
RN NOTES HEMODIALYSIS IN PROGRESS.
--- NOTE | 2022-04-20 19:30 | NUR ---
Pt report received. Pt sedated, mechanically ventilated, A/C, 12, 450, 30%, 5. OGT to low-intermittent wall suction. Dialysis in progross to [facility]. [facility] PICC with Levophed drip at 0.03 mcg/kg/min, Versed at 1 mg/hr, and TPN at 50 mL/hr. F/C secure draining kong urine. Wound vac to right foot s/p debridement. VSS, NAD.
--- NOTE | 2022-04-20 19:45 | NUR ---
Dialysis complete. 3 Liters total fluid removed. VSS, NAD.
[2022-04-20] MEDS ORDERED: TPN CENTRAL IV SCH ×10 (21:00)
[2022-04-20] MEDS ORDERED: SODIUM ACETATE IV SCH ×10 (21:00)
[2022-04-20] MEDS ORDERED: [UNRECOGNIZED DRUG - OTHER] IV SCH ×10 (21:00)
[2022-04-20] MEDS ORDERED: SODIUM CHLORIDE IV SCH ×10 (21:00)
[2022-04-20] MEDS: ATORVASTATIN 20 MG TABLET NG SCH (21:04)
--- NOTE | 2022-04-20 22:00 | NUR ---
Dsg change to RAQUEL PICC using sterile technique.
[2022-04-21] VITALS (37 sets, daily range): BP systolic 96–119
[2022-04-21] MEDS: METOCLOPRAMIDE HCL 10 MG/2 ML VIAL IVP SCH ×5 (00:28→23:49)
[2022-04-21] MEDS: INSULIN REGULAR, HUMAN 100 UNITS/ML, 3 ML VIAL (humuLIN R) SUBCUT PRN ×4 (00:58→18:02)
--- NOTE | 2022-04-21 02:15 | NUR ---
Pt desat to 89%. RT made aware and FiO2 increased to 35%. SPO2 increases to 93%.
[2022-04-21] MEDS: CLINDAMYCIN 900 mg/50mL D5W 50 ML IV SCH ×3 (05:27→21:27)
[2022-04-21] MEDS: AMPICILLIN SODIUM 2 GM in NS 100 ML IV SCH ×3 (05:27→20:38)
[2022-04-21 06:34] LABS: BASOPHILS # (AUTO) 0.1 K/uL (0.0-0.2); BASOPHILS % (AUTO) 0.8 % (0.0-2.0); EOSINOPHILS % (AUTO) 0.2 % (0.0-4.0); HEMATOCRIT 22.9 % (36-48); HEMOGLOBIN 7.7 g/dL (12.0-16.0); LYMPHOCYTES # (AUTO) 1.1 K/uL (1.0-5.5); LYMPHOCYTES % (AUTO) 10.3 % (20.5-51.5); MEAN CORPUSCULAR HEMOGLOBIN 29 pg (27-31); MEAN CORPUSCULAR HGB CONC 34 % (32-36); MEAN CORPUSCULAR VOLUME 87 fL (79.0-98.0); MONOCYTES # (AUTO) 0.6 K/uL (0.0-1.0); MONOCYTES % (AUTO) 5.4 % (1.7-9.3); NEUTROPHILS # (AUTO) 9.1 K/uL (1.8-7.7); NEUTROPHILS % (AUTO) 83.3 % (40.0-70.0); PLATELET COUNT (AUTO) 85 K/uL (130-430); RED BLOOD CELL COUNT(AUTO) 2.64 MIL/uL (4.2-6.2); WHITE BLOOD COUNT (AUTO) 10.9 K/uL (4.8-10.8)
[2022-04-21 06:43] LABS: INR 1.5 (0.8-1.2); PROTHROMBIN TIME 15.7 SECS (9.5-12.5)
[2022-04-21 06:49] LABS: CALCIUM 7.1 mg/dL (8.4-11.0); CREATININE 2.38 mg/dL (0.55-1.30); PHOSPHORUS 2.8 mg/dL (2.7-4.5)
--- NOTE | 2022-04-21 07:00 | NUR ---
RECEIVED REPORT FROM CATERING ATTENDANT, Patient is a 51 year old female admitted to [place] on 04/06 for a CC: of mechanical fall. PMHX: multiple back surgeries, asthma, cervical cancer, DM, HTN. Patient has a RAQUEL picc- eder dominguez, HOWIE martinez cath. IVF: levophed 0.03mcg, diprivan 20mcg/kg/min, versed 1mg/hr, D51/2 at 50cc/hr. TPN 50ml/hr, Heparin Pending waiting for Dr. resendiz. Left leg wound, right food wound with wound vac. Murillo cather with dark kong output. OG on low intermittent suction. Intubation on 04-12-22 runing on AC 16, volume 450, o2 30% 5peep.
--- NOTE | 2022-04-21 07:15 | NUR ---
Pt report given to oncoming RN.
[2022-04-21 08:18] LABS: ERYTHROCYTE SEDIMENTATION RATE 54 MM/HR (0-20)
[2022-04-21] MEDS: PANTOPRAZOLE SODIUM 40 MG/VIAL (PROTONIX) IVP SCH (08:54)
[2022-04-21] MEDS: VITAMIN B COMPLEX 1 CAP/TAB PO SCH (08:54)
[2022-04-21] MEDS: MINERAL OIL 30 ML UDC PO SCH ×2 (08:54→21:27)
[2022-04-21] MEDS ORDERED: MIDAZOLAM IN NACL,ISO-OSMOT/PF 100 ML IV PRN (10:00)
[2022-04-21] MEDS ORDERED: CALCIUM GLUCONATE 1 GM in NS 100 ML IV ONE (10:30)
[2022-04-21] MEDS ORDERED: CALCIUM GLUCONATE 1 GM/10 ML VIAL ONE (11:45)
--- NOTE | 2022-04-21 13:40 | NUR ---
RT NOTES Sat remains low and pt remains tachypneic despite HHN tx. FIO2 TO 0.60 sat. improved 91-93%, Rn aware.
--- NOTE | 2022-04-21 14:00 | NUR ---
pt is tachypneic, propofol started at 5mcg/kg/min
[2022-04-21] MEDS: PROPOFOL DRIP 100 ML IV PRN ×2 (14:05→20:41)
[2022-04-21] MEDS: IPRATROPIUM/ALBUTEROL SULFATE 3 ML AMPUL.NEB (DUONEB) INH PRN (14:07)
--- NOTE | 2022-04-21 15:00 | NUR ---
at bed side.
[2022-04-21] MEDS ORDERED: SODIUM ACETATE IV SCH ×10 (21:00)
[2022-04-21] MEDS ORDERED: TPN CENTRAL IV SCH ×10 (21:00)
[2022-04-21] MEDS ORDERED: [UNRECOGNIZED DRUG - OTHER] IV SCH ×10 (21:00)
[2022-04-21] MEDS ORDERED: SODIUM CHLORIDE IV SCH ×10 (21:00)
[2022-04-21] MEDS: ATORVASTATIN 20 MG TABLET NG SCH (21:28)
[2022-04-22] VITALS (32 sets, daily range): BP systolic 96–120
[2022-04-22] MEDS: PROPOFOL DRIP 100 ML IV PRN ×3 (03:52→16:15)
[2022-04-22] MEDS: AMPICILLIN SODIUM 2 GM in NS 100 ML IV SCH ×3 (04:07→21:51)
[2022-04-22] MEDS: CLINDAMYCIN 900 mg/50mL D5W 50 ML IV SCH ×2 (05:21→15:05)
[2022-04-22] MEDS: METOCLOPRAMIDE HCL 10 MG/2 ML VIAL IVP SCH ×3 (05:56→17:28)
[2022-04-22] MEDS: INSULIN REGULAR, HUMAN 100 UNITS/ML, 3 ML VIAL (humuLIN R) SUBCUT PRN ×3 (06:12→17:46)
--- NOTE | 2022-04-22 07:00 | NUR ---
Open notes: report from outgoing RN. Patient is a 51 year old female admitted to [place] on 04/06 for a CC: of mechanical fall. PMHX: multiple back surgeries, asthma, cervical cancer, DM, HTN. Patient has a RAQUEL picc- eder dominguez, Aneta juan cath. IVF: levophed 0.03mcg, diprivan 20mcg/kg/min, versed 1mg/hr, D51/2 at 50cc/hr. TPN 50ml/hr, Heparin Pending waiting for Dr. resendiz. Left leg wound, right food wound with wound vac. Murillo cather with dark kong output. OG on low intermittent suction. Intubation on 04-12-22 running on AC 16, volume 450, o2 70% 5peep
[2022-04-22 07:41] LABS: HEMOGLOBIN 7.1 g/dL (12.0-16.0); MEAN CORPUSCULAR HEMOGLOBIN 29 pg (27-31); MEAN CORPUSCULAR HGB CONC 32 % (32-36); MEAN CORPUSCULAR VOLUME 90 fL (79.0-98.0); PLATELET COUNT (AUTO) 100 K/uL (130-430); RED BLOOD CELL COUNT(AUTO) 2.42 MIL/uL (4.2-6.2); RED CELL DISTRIBUTION WIDTH 16.2 % (9.0-15.0); WHITE BLOOD COUNT (AUTO) 12.3 K/uL (4.8-10.8)
[2022-04-22] MEDS: IPRATROPIUM/ALBUTEROL SULFATE 3 ML AMPUL.NEB (DUONEB) INH PRN ×2 (07:48→15:27)
[2022-04-22 07:49] LABS: INR 1.5 (0.8-1.2); PROTHROMBIN TIME 15.2 SECS (9.5-12.5)
--- NOTE | 2022-04-22 08:00 | NUR ---
Dr. Knapp at bedside.
--- NOTE | 2022-04-22 08:30 | NUR ---
Dr. Ornelas at bed side.
[2022-04-22 08:41] LABS: ALBUMIN 1.3 g/dL (3.4-4.8); C-REACTIVE PROTEIN QUANT 34.4 mg/dL (0-0.5); CALCIUM 7.9 mg/dL (8.4-11.0); CREATININE 2.67 mg/dL (0.55-1.30); PHOSPHORUS 3.2 mg/dL (2.7-4.5); TOTAL BILIRUBIN 13.4 mg/dL (0.0-1.0)
[2022-04-22] MEDS: PANTOPRAZOLE SODIUM 40 MG/VIAL (PROTONIX) IVP SCH (08:42)
[2022-04-22] MEDS: MINERAL OIL 30 ML UDC PO SCH (08:42)
[2022-04-22] MEDS: VITAMIN B COMPLEX 1 CAP/TAB PO SCH (08:42)
[2022-04-22 09:37] LABS: HEMATOCRIT 21.9 % (36-48)
[2022-04-22 11:01] LABS: ERYTHROCYTE SEDIMENTATION RATE 81 MM/HR (0-20)
[2022-04-22] MEDS: NOREPINEPHRINE BITARTRATE 16 MG in NS 234 ML IV PRN (12:03)
--- NOTE | 2022-04-22 12:15 | NUR ---
dialysis ended, 3 liters was puled out, pt comfortable.
[2022-04-22] MEDS ORDERED: HEPARIN 25,000 UNITS/D5W 250ML 250 ML IV PRN (13:00)
[2022-04-22] MEDS ORDERED: *HEPARIN PER PHARMACY XX ONE (13:00)
[2022-04-22 13:03] LABS: BAND % (MANUAL) 15 % (0-6); LYMPHOCYTES % (MANUAL) 16 % (20-46)
[2022-04-22 13:04] LABS: BASOPHILS % (MANUAL) 0 % (0-2); EOSINOPHILS % (MANUAL) 0 % (0-7); MONOCYTES % (MANUAL) 4 % (0-11)
--- NOTE | 2022-04-22 14:30 | NUR ---
HEPARIN STARTED PER DR. HENSLEY, NO BOLUS, 1500UNITS AND TO CHECK PTT 6HOURS AFTER STARTING. ([facility] CHARGE NURSE WAS PRESENT).
--- NOTE | 2022-04-22 14:30 | NUR ---
RN NOTES HEPARIN DRIP STARTED AT 1500 UNITS/HR. HEPARIN DOSE CHECKED BY NEDA MARTEL AND MYSELF. NO HEPARIN BOLUS ORDERED, WILL RECHECK APTT AT 2030.
[2022-04-22] MEDS: DAPTOmycin 800 MG in NS 50 ML IV SCH (15:08)
[2022-04-22] MEDS ORDERED: SODIUM ACETATE IV SCH ×11 (21:00)
[2022-04-22] MEDS ORDERED: TPN CENTRAL IV SCH ×11 (21:00)
[2022-04-22] MEDS ORDERED: SODIUM CHLORIDE IV SCH ×11 (21:00)
[2022-04-22] MEDS ORDERED: [UNRECOGNIZED DRUG - OTHER] IV SCH ×11 (21:00)
[2022-04-23] VITALS (28 sets, daily range): BP systolic 86–174
[2022-04-23] MEDS: ATORVASTATIN 20 MG TABLET NG SCH ×2 (02:05→21:55)
[2022-04-23] MEDS: MINERAL OIL 30 ML UDC PO SCH ×3 (02:05→21:55)
[2022-04-23] MEDS: CLINDAMYCIN 900 mg/50mL D5W 50 ML IV SCH ×4 (02:09→21:55)
[2022-04-23] MEDS: METOCLOPRAMIDE HCL 10 MG/2 ML VIAL IVP SCH ×2 (02:09→06:17)
[2022-04-23] MEDS: AMPICILLIN SODIUM 2 GM in NS 100 ML IV SCH ×3 (04:00→21:54)
[2022-04-23 07:44] LABS: ALBUMIN 1.2 g/dL (3.4-4.8); CREATININE 2.77 mg/dL (0.55-1.30); PHOSPHORUS 4.1 mg/dL (2.7-4.5); TOTAL BILIRUBIN 14.4 mg/dL (0.0-1.0)
[2022-04-23] MEDS: VITAMIN B COMPLEX 1 CAP/TAB PO SCH (09:08)
[2022-04-23] MEDS: PANTOPRAZOLE SODIUM 40 MG/VIAL (PROTONIX) IVP SCH (09:09)
[2022-04-23 09:26] LABS: C-REACTIVE PROTEIN QUANT 29.9 mg/dL (0-0.5)
[2022-04-23 09:35] LABS: BASOPHILS # (AUTO) 0.1 K/uL (0.0-0.2); BASOPHILS % (AUTO) 0.6 % (0.0-2.0); EOSINOPHILS % (AUTO) 0.1 % (0.0-4.0); LYMPHOCYTES # (AUTO) 1.6 K/uL (1.0-5.5); LYMPHOCYTES % (AUTO) 11.3 % (20.5-51.5); MEAN CORPUSCULAR HEMOGLOBIN 29 pg (27-31); MEAN CORPUSCULAR HGB CONC 31 % (32-36); MEAN CORPUSCULAR VOLUME 96 fL (79.0-98.0); MONOCYTES # (AUTO) 0.8 K/uL (0.0-1.0); MONOCYTES % (AUTO) 5.3 % (1.7-9.3); NEUTROPHILS # (AUTO) 11.9 K/uL (1.8-7.7); NEUTROPHILS % (AUTO) 82.7 % (40.0-70.0); PLATELET COUNT (AUTO) 121 K/uL (130-430); RED BLOOD CELL COUNT(AUTO) 2.23 MIL/uL (4.2-6.2); RED CELL DISTRIBUTION WIDTH 17.8 % (9.0-15.0); WHITE BLOOD COUNT (AUTO) 14.4 K/uL (4.8-10.8)
[2022-04-23 10:00] LABS: HEMATOCRIT 21.3 % (36-48); HEMOGLOBIN 6.6 g/dL (12.0-16.0); INR 1.5 (0.8-1.2); PROTHROMBIN TIME 15.6 SECS (9.5-12.5)
[2022-04-23 10:35] LABS: ERYTHROCYTE SEDIMENTATION RATE 115 MM/HR (0-20)
--- NOTE | 2022-04-23 13:00 | NUR ---
Nutrition F/U Admission Dx: Mechanical fall, intractable pain PMH: Per EMR review, 51 YOF who presented to the ER after a ground level fall while she was transferring from bedside commode to her chair. The pt was concerned about R leg swelling. Per FILM AND VIDEO EDITOR report, Pt transferred to ICU today w/ hypotension, hypokalemia, and septicemia w/ PE. PMHx: asthma, cervical CA, CAD, CHF, DM, HTN, SD, adrenal mass, migraine headaches, DVT, COPD, chronic respiratory failure, chronic pain syndrome, GERD, HLD, and anemia 04/09: CT shows ileus and fatty liver. LFTS are elevated which could be d/t fatty liver/meds/sepsis, etc 04/14: Pt getting HD today for worsening BUBBA Subjective Information: RD rounded to ICU and visited pt at bedside. Primary RN was present in pt's room providing care. Witnessed TPN infusing per pharmacy/physician order. RN reported no current plans for TF via OGT, as OGT is connected to LIS w/ minimal output in canister. RN reported pt is DNR and no new plans. RN also reported that pt has required additional insulin coverage today d/t elevated BGs. Per EMR review, abd is distended w/ hyperactive bowel sounds; no BM noted since 04/08 x8; Patricio score: 10, jaundiced, multiple wounds noted. Pt is not yet meeting optimal nutritional needs. Current Diet Order/Nutrition Support: TPN D30% AA8.5% at 85 ml/hr via central line & NPO x11 days Pertinent Meds: heparin, propofol at 3.99 ml/hr (105 kcal/day), levophed, lipitor, reglan, mineral oil, VIT B complex, SSI, protonix IV Pertinent Labs: H/H 6.6 L/21.3 L, WBC 14.4 H, Na 134 L, BUN 29 H, CRE 2.77 H, BG 256 H, POC BG 258 H Current % PO 0% - NPO Estimated Energy Expenditure (kcals/day) 2192 kcal (PSU 2009 for ICU/Vented; MSJ 1966, Tmax 36.6, Ve 11.9) Estimated Protein Required (g/day) 71-83 (1.2-1.4 gm/kg IBW d/t sepsis/morbid obesity/critical illness/BUBBA) Estimated Fluid Required (l/day) Per physician d/t CHF Problem/Etiology/Signs/Symptoms * Malnutrition in the context of morbid obesity R/T suspected over-consumption/unrestricted diet AUTO FORMER MACHINE OPERATOR AEB no diet guidelines AUTO FORMER MACHINE OPERATOR noted by nursing, BMI: 47.29 kg/m2, 225% IBW, and excessive adiposity throughout body. *Ongoing * Increased energy and protein utilization r/t metabolic demands a/e/b estimated nutritional needs for wound healing. *Ongoing * Inadequate oral intake r/t diet order a/e/b NPO since 04/11/22. *Ongoing, on TPN Expected Outcomes/Goals - Monitor advancement of diet, appetite, and PO intakes w/ goal of pt meeting >75% of estimated nutritional needs, labs trending WNL, normal GI function, and skin integrity/wt maintenance Dietitian Recommendations * TPN D40%, AA8.5% at 85 ml/hr (goal), [place] 20% at 5 ml/hr via central line Provides: 2160 ml total volume/day, 1975 kcal/day, 87 gm protein/day, GIR: 2.1 mg CHO/kg/min Meets: 90% of estimated caloric needs, 105% of upper end of estimated protein needs * Consider modification of insulin coverage to improve glycemic control * Consider wound supplements: 250 mg VIT C, 220mg ZnSO4 x 14 days * Monitor and replace electrolytes as needed Follow Up High Risk: F/U in 2-3 days
--- NOTE | 2022-04-23 13:10 | NUR ---
Dietitian Recommendations * TPN D40%, AA8.5% at 85 ml/hr (goal), [place] 20% at 5 ml/hr via central line Provides: 2160 ml total volume/day, 1975 kcal/day, 87 gm protein/day, GIR: 2.1 mg CHO/kg/min Meets: 90% of estimated caloric needs, 105% of upper end of estimated protein needs * Consider modification of insulin coverage to improve glycemic control * Consider wound supplements: 250 mg VIT C, 220mg ZnSO4 x 14 days * Monitor and replace electrolytes as needed LP, MS, RD Please refer to Nutrition F/U for details.
[2022-04-23] MEDS ORDERED: NOREPINEPHRINE 4 MG/4 ML VIAL IV ONE (14:21)
[2022-04-23 17:09] LABS: INR 1.5 (0.8-1.2); PROTHROMBIN TIME 15.5 SECS (9.5-12.5)
--- NOTE | 2022-04-23 20:10 | NUR ---
Remained sedated, intubated and vented. On levo and heparin gtt. Heparin gtt on hold due to high PTT, restarted at 1999. On TPN. bLLOD ONE UNIT GIVEN FOR hb 6.1
[2022-04-23] MEDS ORDERED: TPN CENTRAL IV SCH ×11 (21:00)
[2022-04-23] MEDS ORDERED: [UNRECOGNIZED DRUG - OTHER] IV SCH ×11 (21:00)
[2022-04-23] MEDS ORDERED: SODIUM CHLORIDE IV SCH ×11 (21:00)
[2022-04-23] MEDS ORDERED: SODIUM ACETATE IV SCH ×11 (21:00)
[2022-04-24] VITALS (9 sets, daily range): BP systolic 57–110
[2022-04-24] MEDS: METOCLOPRAMIDE HCL 10 MG/2 ML VIAL IVP SCH ×2 (00:53→06:29)
[2022-04-24] MEDS: NOREPINEPHRINE BITARTRATE 16 MG in NS 234 ML IV PRN (02:31)
--- NOTE | 2022-04-24 03:00 | NUR ---
Dr Ramirez paged for temp 101.5F and increased ectopy/irregular heartbeat.
[2022-04-24] MEDS ORDERED: ACETAMINOPHEN 650 MG/20.3 ML UDC GT PRN (03:30)
[2022-04-24] MEDS ORDERED: NOREPINEPHRINE 4 MG/4 ML VIAL IV ONE (03:50)
[2022-04-24] MEDS: AMPICILLIN SODIUM 2 GM in NS 100 ML IV SCH (04:14)
[2022-04-24 06:29] LABS: BASOPHILS # (AUTO) 0.1 K/uL (0.0-0.2); BASOPHILS % (AUTO) 0.7 % (0.0-2.0); EOSINOPHILS % (AUTO) 0.2 % (0.0-4.0); HEMATOCRIT 26.5 % (36-48); LYMPHOCYTES # (AUTO) 2.8 K/uL (1.0-5.5); LYMPHOCYTES % (AUTO) 14.7 % (20.5-51.5); MEAN CORPUSCULAR HEMOGLOBIN 30 pg (27-31); MEAN CORPUSCULAR HGB CONC 30 % (32-36); MEAN CORPUSCULAR VOLUME 98 fL (79.0-98.0); MONOCYTES # (AUTO) 1.2 K/uL (0.0-1.0); NEUTROPHILS # (AUTO) 15.2 K/uL (1.8-7.7); NEUTROPHILS % (AUTO) 78.4 % (40.0-70.0); PLATELET COUNT (AUTO) 152 K/uL (130-430); RED BLOOD CELL COUNT(AUTO) 2.71 MIL/uL (4.2-6.2); RED CELL DISTRIBUTION WIDTH 18.1 % (9.0-15.0); WHITE BLOOD COUNT (AUTO) 19.4 K/uL (4.8-10.8)
[2022-04-24 07:14] LABS: CALCIUM 8.5 mg/dL (8.4-11.0); CREATININE 3.26 mg/dL (0.55-1.30); PHOSPHORUS 4.8 mg/dL (2.7-4.5)
[2022-04-24] MEDS: IPRATROPIUM/ALBUTEROL SULFATE 3 ML AMPUL.NEB (DUONEB) INH PRN (07:30)
--- NOTE | 2022-04-24 08:16 | NUR ---
RT NOTES DNR pt , pronounced by Dr Whitehead.
--- NOTE | 2022-04-24 08:16 | NUR ---
Pt noted to be asystole on the monitor. No pulse felt. Pt is a DNR status. ER MD called and pronounced pt at this time.
--- NOTE | 2022-04-24 08:45 | NUR ---
Pts son and both notified via phone of their family member's expiration. Questions answered. They will be in to visit.
[2022-04-24 09:02] LABS: ERYTHROCYTE SEDIMENTATION RATE 104 MM/HR (0-20)
--- NOTE | 2022-04-24 09:09 | NUR ---
Spoke with [employer] leaving message for Dr. Rossy Ramirez of patient's expiration.
[2022-04-24 09:54] LABS: C-REACTIVE PROTEIN QUANT 45.9 mg/dL (0-0.5)
--- NOTE | 2022-04-24 11:38 | NUR ---
Family in to see pt.
--- NOTE | 2022-04-24 13:00 | NUR ---
Family in to see pt and just left. They will call with the name of the mortuary. Body placed in 127 A and placed on ice. supervisor product inspection and security notified.
== END 2022-04-24 09:40 | DRG 720 ==
LOC: SED 14:59 → STU 22:31 → SIC 04-09 12:15
PROVIDERS: ADMIT Preventive Medicine Preventive Medicine/Occupational Environmental Medicine; ATTEND Preventive Medicine Preventive Medicine/Occupational Environmental Medicine
PROC: 05HY33Z Insertion of Infusion Device into Upper Vein, Percutaneous Approach (ICD-10-PCS; 2022-04-08)
PROC: B54MZZA Ultrasonography of Right Upper Extremity Veins, Guidance (ICD-10-PCS; 2022-04-08)
PROC: 0DH67UZ Insertion of Feeding Device into Stomach, Via Natural or Artificial Opening (ICD-10-PCS; 2022-04-10)
PROC: 5A1955Z Respiratory Ventilation, Greater than 96 Consecutive Hours (ICD-10-PCS; principal; 2022-04-12)
PROC: 0BH17EZ Insertion of Endotracheal Airway into Trachea, Via Natural or Artificial Opening (ICD-10-PCS; 2022-04-12)
PROC: 0JBN0ZZ Excision of Right Lower Leg Subcutaneous Tissue and Fascia, Open Approach (ICD-10-PCS; 2022-04-14)
PROC: 2W1QX6Z Compression of Right Lower Leg using Pressure Dressing (ICD-10-PCS; 2022-04-14)
PROC: 02HV33Z Insertion of Infusion Device into Superior Vena Cava, Percutaneous Approach (ICD-10-PCS; 2022-04-14)
PROC: B548ZZA Ultrasonography of Superior Vena Cava, Guidance (ICD-10-PCS; 2022-04-14)
PROC: 5A1D70Z Performance of Urinary Filtration, Intermittent, Less than 6 Hours Per Day (ICD-10-PCS; 2022-04-14)
PROC: 5A1D70Z Performance of Urinary Filtration, Intermittent, Less than 6 Hours Per Day (ICD-10-PCS; 2022-04-16)
PROC: 5A1D70Z Performance of Urinary Filtration, Intermittent, Less than 6 Hours Per Day (ICD-10-PCS; 2022-04-18)
PROC: 30233N1 Transfusion of Nonautologous Red Blood Cells into Peripheral Vein, Percutaneous Approach (ICD-10-PCS; 2022-04-19)
PROC: 5A1D70Z Performance of Urinary Filtration, Intermittent, Less than 6 Hours Per Day (ICD-10-PCS; 2022-04-20)
PROC: 5A1D70Z Performance of Urinary Filtration, Intermittent, Less than 6 Hours Per Day (ICD-10-PCS; 2022-04-22)
DX: A41.01 Sepsis due to Methicillin susceptible Staphylococcus aureus (principal); J96.21 Acute and chronic respiratory failure with hypoxia; I26.99 Other pulmonary embolism without acute cor pulmonale; K72.00 Acute and subacute hepatic failure without coma; M72.6 Necrotizing fasciitis; R65.21 Severe sepsis with septic shock; K56.609 Unspecified intestinal obstruction, unspecified as to partial versus complete obstruction; D61.818 Other pancytopenia; E43 Unspecified severe protein-calorie malnutrition; K56.0 Paralytic ileus; E83.51 Hypocalcemia; I82.411 Acute embolism and thrombosis of right femoral vein; N17.9 Acute kidney failure, unspecified; E87.1 Hypo-osmolality and hyponatremia; I50.9 Heart failure, unspecified; G93.40 Encephalopathy, unspecified; E83.39 Other disorders of phosphorus metabolism; D69.6 Thrombocytopenia, unspecified; E88.09 Other disorders of plasma-protein metabolism, not elsewhere classified; R13.10 Dysphagia, unspecified; K21.9 Gastro-esophageal reflux disease without esophagitis; G40.909 Epilepsy, unspecified, not intractable, without status epilepticus; G89.4 Chronic pain syndrome; E83.42 Hypomagnesemia; M54.9 Dorsalgia, unspecified; R74.01 Elevation of levels of liver transaminase levels; G43.909 Migraine, unspecified, not intractable, without status migrainosus; M47.9 Spondylosis, unspecified; E87.6 Hypokalemia; L03.115 Cellulitis of right lower limb; L97.919 Non-pressure chronic ulcer of unspecified part of right lower leg with unspecified severity; L97.219 Non-pressure chronic ulcer of right calf with unspecified severity; E66.01 Morbid (severe) obesity due to excess calories; E83.52 Hypercalcemia; E11.621 Type 2 diabetes mellitus with foot ulcer; C53.9 Malignant neoplasm of cervix uteri, unspecified; L03.311 Cellulitis of abdominal wall; E11.649 Type 2 diabetes mellitus with hypoglycemia without coma; E11.65 Type 2 diabetes mellitus with hyperglycemia; Z66 Do not resuscitate; Z20.822 Contact with and (suspected) exposure to COVID-19; E27.9 Disorder of adrenal gland, unspecified; E77.8 Other disorders of glycoprotein metabolism; E78.5 Hyperlipidemia, unspecified; E83.41 Hypermagnesemia; I25.10 Atherosclerotic heart disease of native coronary artery without angina pectoris; J44.9 Chronic obstructive pulmonary disease, unspecified; I13.0 Hypertensive heart and chronic kidney disease with heart failure and stage 1 through stage 4 chronic kidney disease, or unspecified chronic kidney disease; N18.9 Chronic kidney disease, unspecified; E11.22 Type 2 diabetes mellitus with diabetic chronic kidney disease; Z99.11 Dependence on respirator [ventilator] status; Z86.73 Personal history of transient ischemic attack (TIA), and cerebral infarction without residual deficits; Z85.41 Personal history of malignant neoplasm of cervix uteri; Z88.6 Allergy status to analgesic agent; Z88.5 Allergy status to narcotic agent; Z88.2 Allergy status to sulfonamides; Z88.8 Allergy status to other drugs, medicaments and biological substances; Z79.899 Other long term (current) drug therapy; Z91.018 Allergy to other foods; Z91.013 Allergy to seafood; Z79.2 Long term (current) use of antibiotics; Z68.42 Body mass index [BMI] 45.0-49.9, adult
CPT/HCPCS: 36415; 36600; 70450-TC; 71045; 71250-TC; 71275; 72125-TC; 72128; 72131; 73590-TC; 74018; 74250-TC; 76376; 76700-TC; 80048; 80053; 80076; 80202; 80307; 81003; 82140; 82150; 82310; 82330; 82550; 82803-TC; 82962; 83605; 83690; 83735; 83880; 84100; 84132; 84311; 84478; 84484; 85007; 85025; 85027; 85379; 85384; 85610-TC; 85651-TC; 85730-TC; 86022; 86140; 86886; 86900; 86901; 86920; 87040; 87070-TC; 87081; 87086; 87186-TC; 87205-TC; 88304; 88305; 90935; 90937; 93005; 93306; 93971; 94002; 94003; 94640; 94760; 96361; 96372; 96374; 97110-GP; 97530-GP; 99285; A6209; C1751; C9113; G0378; J0290; J0610; J0878; J1170; J1644; J1650; J1815; J2250; J2270; J2274; J2543; J2704; J2765; J3370; J3430; J3475; J3480; J3490; J7030; J7050; J7060; J7131; J8597; P9021; P9046; Q0163; Q9963; Q9964; Q9967